=== PATIENT | male | born 1960 | race Caucasian/White ===

== ENCOUNTER 2020-08-27 09:47 | Outpatient (REF) | payer OTHER, SELFPAY ==
[2020-08-27 10:43] LABS: MANUAL DIFF FLAG NO
[2020-08-27 10:47] LABS: Basophils Absolute Auto 0.1 X10*3/uL (0.0-0.2); Basophils Percent Auto 0.5 % (0-2); Eosinophils Absolute Auto 0.6 X10*3/uL (0.0-0.4); Eosinophils Percent Auto 5.4 % (0-4); Hematocrit 48.4 % (42-52); Hemoglobin 16.5 g/dl (14.0-18.0); Imm Gran Abs Auto 0.04 X10*3/uL (0.00-0.03); Imm Gran Pct Auto 0.4 % (0.0-0.4); Lymphocytes Absolute Auto 2.5 X10*3/uL (1.2-4.9); Lymphocytes Percent Auto 24.2 % (20-40); Mean Corpuscular HGB Conc 34.1 g/dl (31.0-36.0); Mean Corpuscular Hemoglobin 30.2 pg (27.0-33.0); Mean Corpuscular Volume 88.6 fL (80-98); Mean Platelet Volume 10.8 fL (9.4-12.4); Monocytes Absolute Auto 0.8 X10*3/uL (0.1-1.2); Monocytes Percent Auto 7.8 % (2-11); Neutrophils Absolute Auto 6.3 X10*3/uL (2.0-8.3); Neutrophils Percent Auto 61.7 % (45-73); Platelet Count 217 X10*3/uL (160-400); Red Blood Count 5.46 X10*6/uL (4.60-5.80); White Blood Count 10.1 X10*3/uL (4.8-10.8)
[2020-08-27 11:20] LABS: Alanine Aminotransferase 27 U/L (0-40); Albumin Level 4.3 g/dL (3.5-5.0); Alkaline Phosphatase 93 U/L (39-117); Anion Gap 10 (12-20); Aspartate Amino Transferase 25 U/L (5-37); Bilirubin Total 0.6 mg/dL (0.0-1.0); Blood Urea Nitrogen 20 mg/dL (9-16); Calcium 9.4 mg/dL (8.4-10.2); Carbon Dioxide 31 mmol/L (22-29); Chloride 101 mmol/L (96-108); Cholesterol 226 mg/dL; Estimated Glomerular Filt Rate > 60; Glucose Fasting 89 mg/dL (60-99); HDL Cholesterol 46 mg/dL; LDL Cholesterol Calculated 150 mg/dl; Potassium 3.8 mmol/l (3.3-5.1); Sodium 138 mmol/L (135-145); Total Protein 6.9 g/dL (6.5-8.0); Triglycerides 154 mg/dL
[2020-08-27 11:42] LABS: Thyroid Stimulating Hormone 3.23 mIU/mL (0.32-4.0)
== END 2020-08-27 09:48 | disposition home or self-care (01) ==
LOC: HO.LAB 09:47
PROVIDERS: PCP Physician Assistant; Visit Provider Physician Assistant
DX: I10 Essential (primary) hypertension (principal); E78.9 Disorder of lipoprotein metabolism, unspecified
CPT/HCPCS: 36415; 80053; 80061; 84443; 85025

== ENCOUNTER 2021-01-30 09:16 | Emergency (ER) | payer OTHER, SELFPAY ==
--- NOTE | ~2021-01-30 | XR_ITS ---
EXAMINATION: XR CHEST CLINICAL INFORMATION: Fever. Rule out pneumonia. COMPARISON: 02/08/18. CT scan of 04/01/20. TECHNIQUE: Frontal view of the chest was obtained. FINDINGS: The lungs are hypoexpanded with no focal consolidation or other abnormality demonstrated. The pleural spaces are clear. The heart and mediastinal structures are normal. No bony abnormality is seen. XR/XR chest 1V IMPRESSION: Low lung volumes. No abnormality demonstrated.
[2021-01-30 09:26] VITALS: BP 166/82; PULSE 70; RESP 18; TEMP 36.9; O2SAT 96; BMI 30.9
--- NOTE | 2021-01-30 09:44 | ED.FEVER ---
HPI - Fever General Chief Complaint: Fever Stated Complaint: FLU [place] Time Seen by Provider: 01/30/21 09:43 Source: patient Mode of arrival: ambulatory Limitations: no limitations History of Present Illness HPI Narrative: 60-year-old male who received his 1st moderna COVID vaccination 4 days ago, patient after having his vaccination been having intermittent chills, fever, body aches, headaches. Patient's symptoms respond to taking Tylenol, patient received COVID vaccination in his right arm no local reaction to the vaccination, no recent confirm sick contact. No coughing, no chest pain, no abdominal pain, no nausea, no vomiting, no photophobia no neck stiffness. Related Data Home Medications Medication Instructions Recorded Confirmed hydrochlorothiazide 12.5 mg capsule 12.5 mg PO QAM 09/03/20 01/27/21 metoprolol succinate 100 mg 100 mg PO DAILY 09/03/20 01/27/21 tablet,extended release 24 hr Previous Rx's Medication Instructions Recorded triamcinolone acetonide 0.5 % 1 applic TOPICAL BID 30 Days #15 g 09/03/20 topical cream ropinirole 0.5 mg tablet 0.5 mg PO BEDTIME 30 Days #30 tab 01/27/21 zolpidem 10 mg tablet 10 mg PO BEDTIME PRN 30 Days #30 01/27/21 tab Allergies Allergy/AdvReac Type Severity Reaction Status Date / Time No Known Allergies Allergy Verified 01/27/21 14:41 [No Known Allergies*] Review of Systems Review of Systems: All other systems are reviewed and are negative Constitutional: Reports as per HPI and Reports no additional constitutional complaints Eyes: Reports as per HPI and Reports no additional eye complaints Reports system reviewed and no additional complaints, except as documented Cardiovascular: Reports as per HPI and Reports no additional cardiovascular complaints Respiratory: Reports as per HPI and Reports no additional respiratory complaints Gastrointestinal: Reports as per HPI and Reports no additional gastrointestinal complaints Genitourinary: Reports no additional female genitourinary complaints Musculoskeletal: Reports no additional musculoskeletal complaints Skin/Breast: Reports system reviewed and no additional complaints, except as docu Psychiatric: Reports no additional psychiatric complaints Endocrine: Reports no additional endocrine complaints Hematologic/Lymphatic: Reports no additional hematologic/lymphatic complaints Allergic/Immunologic: Reports no additional allergic/immunologic complaints Reports system reviewed and no additional complaints, except as documented and Reports Abnormal speech present [facility] Past Medical History Surgical History History of lumbar surgery Family History Family History Father Diabetes Mother Gastric cancer Brother Prostate cancer Family/Other FH: mental illness Social History Social History Smoking Status: Never smoker Advance Directives: No Advance Directives Information Provided: No Physical Exam Vital Signs: Vital Signs: Last Vital Signs Temp 98.4 F 01/30/21 09:26 Pulse 70 01/30/21 09:26 Resp 18 01/30/21 09:26 BP 166/82 H 01/30/21 09:26 Pulse Ox 96 01/30/21 09:26 Body Mass Index 30.9 Vital signs have been reviewed as appeared to be correct. Blood pressure is elevated . Heart rate normal. Respiration rate normal. Temperature normal. Oxygen saturation normal. Appearance: Alert. Oriented X3. No acute distress. Head: Normal external exam. Normocephalic. Atraumatic. No Rosado signs noted. No raccoon eyes noted Eyes: PERRLA. EOMI. Conjunctiva and sclera normal. Eyelids normal. ENT: TM's Normal. Pharynx normal. Uvula midline. Moist mucous membranes. No trismus noted. No drooling noted. No muffled voice noted. Neck: Normal inspection. Neck supple. FROM. No adenopathy. Thyroid Normal. No meningeal signs. No neck mass noted. CVS: Normal heart rate and rhythm. Heart sound normal. No murmurs noted. Pulses normal throughout. Respiratory: No respiratory distress. Painless inspiration. Breath sounds normal. No wheezes/rales/rhonchi noted. Chest nontender. No accessory muscle usage noted or decreased air movement noted. Abdomen: Soft and nontender. Bowel sounds normal in all 4 quadrants. No distention noted. No organomegaly noted. No visible injury noted. Back: No CVA tenderness. Full range of motion noted. Skin: Skin warm and dry. Normal skin color. Normal skin turgor. No rashes/lesions/lacerations noted. Extremities: No lower extremity edema. Extremities exhibit normal range of motion. Extremities nontender. Neuro: Oriented X 3. No motor deficit. No sensory deficit. Reflexes normal. Course Course Course Narrative: Assessment and plan. 60-year-old male started to have body ache after having 1st dose of moderna COVID vaccine, on and off fever with chills that is responding well to Tylenol, patient has no concern of having superimposed infection, blood workup is unremarkable, COVID testing is pending. MDM - Fever Lab Data Attestation: I reviewed the patient's lab results. Result diagrams: 01/30/21 10:05 01/30/21 10:05 Labs: Lab Results 01/30/21 01/30/21 01/30/21 Range/Units 10:00 10:01 10:05 WBC 5.3 (4.8-10.8) X10*3/uL RBC 5.87 H (4.60-5.80) X10*6/uL Hgb 17.5 (14.0-18.0) g/dl Hct 52.3 H (42-52) % MCV 89.1 (80-98) fL MCH 29.8 (27.0-33.0) pg MCHC 33.5 (31.0-36.0) g/dl RDW 12.3 (11.0-16.0) % Plt Count 141 L D (160-400) X10*3/uL MPV 10.0 (9.4-12.4) fL Immature Gran % (Auto) 0.2 (0.0-0.4) % Neut % (Auto) 63.0 (45-73) % Lymph % (Auto) 21.8 (20-40) % [place] % (Auto) 12.4 H (2-11) % Eos % (Auto) 1.5 (0-4) % Baso % (Auto) 1.1 (0-2) % Lymph # (Auto) 1.2 (1.2-4.9) X10*3/uL [place] # (Auto) 0.7 (0.1-1.2) X10*3/uL Eos # (Auto) 0.1 (0.0-0.4) X10*3/uL Baso # (Auto) 0.1 (0.0-0.2) X10*3/uL Abs Immat Gran (auto) 0.01 (0.00-0.03) X10*3/uL Absolute Neuts (auto) 3.4 (2.0-8.3) X10*3/uL Absolute Nucleated RBC 0.000 (0.0-0.012) X10*3/uL Nucleated RBC % (auto) 0.0 (0.0-0.2) /100WBC Sodium (135-145) mmol/L Potassium (3.3-5.1) mmol/L Chloride (96-108) mmol/L Carbon Dioxide (22-29) mmol/L Anion Gap (12-20) BUN (9-16) mg/dL Creatinine (0.5-1.4) mg/dL Estim Creat Clear Calc Estimated GFR Random Glucose (60-115) mg/dL Calcium (8.4-10.2) mg/dL Urine Color YELLOW Urine Appearance CLEAR Urine pH 6.0 (5.0-8.0) Ur Specific [place] 1.025 (1.005-1.025) Urine Protein NEG (NEG-TRACE) MG/DL Urine Glucose (UA) NEG (NEG) MG/DL Urine Ketones NEG (NEG) MG/DL Urine Blood NEG (NEG) Urine Nitrite NEG (NEG) Ur Leukocyte Esterase NEG (NEG) COVID-19 (BOBBY) Cancelled COVID-19 Clin Com Cancelled 01/30/21 01/30/21 Range/Units 10:05 12:22 WBC (4.8-10.8) X10*3/uL RBC (4.60-5.80) X10*6/uL Hgb (14.0-18.0) g/dl Hct (42-52) % MCV (80-98) fL MCH (27.0-33.0) pg MCHC (31.0-36.0) g/dl RDW (11.0-16.0) % Plt Count (160-400) X10*3/uL MPV (9.4-12.4) fL Immature Gran % (Auto) (0.0-0.4) % Neut % (Auto) (45-73) % Lymph % (Auto) (20-40) % [place] % (Auto) (2-11) % Eos % (Auto) (0-4) % Baso % (Auto) (0-2) % Lymph # (Auto) (1.2-4.9) X10*3/uL [place] # (Auto) (0.1-1.2) X10*3/uL Eos # (Auto) (0.0-0.4) X10*3/uL Baso # (Auto) (0.0-0.2) X10*3/uL Abs Immat Gran (auto) (0.00-0.03) X10*3/uL Absolute Neuts (auto) (2.0-8.3) X10*3/uL Absolute Nucleated RBC (0.0-0.012) X10*3/uL Nucleated RBC % (auto) (0.0-0.2) /100WBC Sodium 140 (135-145) mmol/L Potassium 3.9 (3.3-5.1) mmol/L Chloride 101 (96-108) mmol/L Carbon Dioxide 28 (22-29) mmol/L Anion Gap 15 (12-20) BUN 16 (9-16) mg/dL Creatinine 1.19 (0.5-1.4) mg/dL Estim Creat Clear Calc 76.9 Estimated GFR > 60 Random Glucose 102 (60-115) mg/dL Calcium 9.2 (8.4-10.2) mg/dL Urine Color Urine Appearance Urine pH (5.0-8.0) Ur Specific [place] (1.005-1.025) Urine Protein (NEG-TRACE) MG/DL Urine Glucose (UA) (NEG) MG/DL Urine Ketones (NEG) MG/DL Urine Blood (NEG) Urine Nitrite (NEG) Ur Leukocyte Esterase (NEG) COVID-19 (BOBBY) Negative COVID-19 Clin Com See Note Imaging Data Chest x-ray: Radiologist's impression: Low lung volume is. No abnormalities demonstrated Discharge Plan Discharge Clinical Impression: Side effects of vaccination Qualifiers: Encounter type: initial encounter Qualified Code(s): T50.Z95A - Adverse effect of other vaccines and biological substances, initial encounter Patient Disposition: Home, Self-Care Instructions: The Importance of Immunizations (Vaccines) for Adults (ED) Additional Instructions: Your symptoms could be a side effect from 1st dose of vaccination against COVID 19 virus, our blood workup today and chest x-ray is not indicating any superimposing infection, continue was drinking plenty of fluid take Tylenol if needed for symptoms, seek immediate medical attention if any tongue swelling or difficulty breathing. Prescriptions: No Action hydrochlorothiazide 12.5 mg capsule 12.5 mg PO QAM RF: 0 metoprolol succinate 100 mg tablet extended release 24 hr 100 mg PO DAILY RF: 0 triamcinolone acetonide 0.5 % cream 1 applic topical BID 30 Days Qty: 15 RF: 1 zolpidem 10 mg tablet 10 mg PO BEDTIME PRN (Reason: sleep) 30 Days Qty: 30 RF: 2 ropinirole 0.5 mg tablet 0.5 mg PO BEDTIME 30 Days Qty: 30 RF: 3 Referrals: Lucas Andino PA-C [Primary Care Provider] - 2 days Interventions: ED Discharge Assessment Last Done: 01/30/21 12:13 Discharge Date/Time: 01/30/21 12:25
[2021-01-30 10:15] LABS: MANUAL DIFF FLAG NO
[2021-01-30 10:38] LABS: Basophils Absolute Auto 0.1 X10*3/uL (0.0-0.2); Basophils Percent Auto 1.1 % (0-2); Eosinophils Absolute Auto 0.1 X10*3/uL (0.0-0.4); Eosinophils Percent Auto 1.5 % (0-4); Hematocrit 52.3 % (42-52); Hemoglobin 17.5 g/dl (14.0-18.0); Imm Gran Abs Auto 0.01 X10*3/uL (0.00-0.03); Imm Gran Pct Auto 0.2 % (0.0-0.4); Lymphocytes Absolute Auto 1.2 X10*3/uL (1.2-4.9); Lymphocytes Percent Auto 21.8 % (20-40); Mean Corpuscular HGB Conc 33.5 g/dl (31.0-36.0); Mean Corpuscular Hemoglobin 29.8 pg (27.0-33.0); Mean Corpuscular Volume 89.1 fL (80-98); Monocytes Absolute Auto 0.7 X10*3/uL (0.1-1.2); Monocytes Percent Auto 12.4 % (2-11); Neutrophils Absolute Auto 3.4 X10*3/uL (2.0-8.3); Platelet Count 141 X10*3/uL (160-400); Red Blood Count 5.87 X10*6/uL (4.60-5.80); Red Cell Distribution Width 12.3 % (11.0-16.0); White Blood Count 5.3 X10*3/uL (4.8-10.8)
[2021-01-30 10:39] LABS: Glucose Urine UA NEG (NEG); Leukocyte Esterase Urine NEG (NEG); Nitrite Urine NEG (NEG); Specific Gravity - Urine 1.025 (1.005-1.025); Urine Blood NEG (NEG); Urine Ketones NEG (NEG); Urine Protein NEG (NEG-TRACE)
[2021-01-30 10:40] LABS: Appearance Urine CLEAR; Color Urine YELLOW
[2021-01-30 10:49] LABS: Anion Gap 15 (12-20); Blood Urea Nitrogen 16 mg/dL (9-16); Calcium 9.2 mg/dL (8.4-10.2); Carbon Dioxide 28 mmol/L (22-29); Chloride 101 mmol/L (96-108); Creatinine Clr Calc Pharmacy 76.9; Estimated Glomerular Filt Rate > 60; Glucose Random 102 mg/dL (60-115); Potassium 3.9 mmol/L (3.3-5.1); Sodium 140 mmol/L (135-145)
[2021-01-30 12:44] LABS: COVID-19 Test Negative (Negative)
== END 2021-01-30 12:25 | disposition home or self-care (01) ==
PROVIDERS: Emergency Provider Emergency Medicine; PCP Physician Assistant
DX: R51.9 Headache, unspecified (principal); R50.9 Fever, unspecified; M79.10 Myalgia, unspecified site; T50.Z95A Adverse effect of other vaccines and biological substances, initial encounter; Y92.019 Unspecified place in single-family (private) house as the place of occurrence of the external cause; Z20.822 Contact with and (suspected) exposure to COVID-19
CPT/HCPCS: 36415; 71045; 80048; 81003; 85025; 87040; 87635; 99283

== ENCOUNTER → 2021-06-14 08:58 | Outpatient (BNVA) | payer OTHER, SELFPAY | PROVIDERS: PCP Physician Assistant; Visit Provider Internal Medicine ==

== ENCOUNTER → 2021-07-01 10:56 | Outpatient (BNVA) | payer OTHER, SELFPAY | PROVIDERS: PCP Physician Assistant; Visit Provider Physician Assistant | DX: M65.331 Trigger finger, right middle finger (principal); M65.322 Trigger finger, left index finger | CPT/HCPCS: 20550; J1020 ==

== ENCOUNTER → 2021-07-21 09:41 | Outpatient (BNVA) | payer OTHER, SELFPAY | PROVIDERS: PCP Physician Assistant; Visit Provider Internal Medicine ==

== ENCOUNTER → 2021-08-11 09:56 | Outpatient (REF) | payer OTHER, SELFPAY | LOC: HO.SL 09:56 | PROVIDERS: PCP Physician Assistant; Visit Provider Internal Medicine | DX: G47.33 Obstructive sleep apnea (adult) (pediatric) (principal); F51.01 Primary insomnia; G25.81 Restless legs syndrome; E66.9 Obesity, unspecified | CPT/HCPCS: 95806 ==

== ENCOUNTER → 2021-08-25 15:40 | Outpatient (BNVA) | payer OTHER, SELFPAY | PROVIDERS: PCP Physician Assistant; Visit Provider Internal Medicine ==

== ENCOUNTER → 2022-01-31 10:54 | Outpatient (BNVA) | payer OTHER, SELFPAY | PROVIDERS: PCP Physician Assistant; Visit Provider Internal Medicine | DX: G47.33 Obstructive sleep apnea (adult) (pediatric) (principal); G47.34 Idiopathic sleep related nonobstructive alveolar hypoventilation; G25.81 Restless legs syndrome; E66.9 Obesity, unspecified; Z99.89 Dependence on other enabling machines and devices; Z87.891 Personal history of nicotine dependence | CPT/HCPCS: 99212 ==

== ENCOUNTER 2022-09-15 01:32 | Emergency (ER) | payer OTHER, SELFPAY ==
[2022-09-15 01:44] VITALS: BP 146/79; PULSE 65; RESP 18; TEMP 36.7; O2SAT 96; BMI 30.8
[2022-09-15 02:04] LABS: MANUAL DIFF FLAG NO
[2022-09-15 02:05] LABS: Basophils Absolute Auto 0.1 X10*3/uL (0.0-0.2); Basophils Percent Auto 0.5 % (0-2); Eosinophils Absolute Auto 0.4 X10*3/uL (0.0-0.4); Eosinophils Percent Auto 3.5 % (0-4); Hematocrit 48.4 % (42.0-52.0); Hemoglobin 16.2 g/dl (14.0-18.0); Imm Gran Abs Auto 0.04 X10*3/uL (0.00-0.03); Imm Gran Pct Auto 0.3 % (0.0-0.4); Lymphocytes Absolute Auto 2.1 X10*3/uL (1.2-4.9); Lymphocytes Percent Auto 16.5 % (20-40); Mean Corpuscular HGB Conc 33.5 g/dl (31.0-36.0); Mean Corpuscular Hemoglobin 29.1 pg (27.0-33.0); Mean Corpuscular Volume 87.1 fL (80.0-98.0); Mean Platelet Volume 9.9 fL (9.4-12.4); Monocytes Absolute Auto 0.8 X10*3/uL (0.1-1.2); Monocytes Percent Auto 6.3 % (2-11); Neutrophils Absolute Auto 9.2 x10*3/uL (2.0-8.3); Neutrophils Percent Auto 72.9 % (45-73); Platelet Count 199 X10*3/uL (160-400); Red Blood Count 5.56 X10*6/uL (4.60-5.80); Red Cell Distribution Width 12.9 % (11.0-16.0); White Blood Count 12.6 X10*3/uL (4.8-10.8)
[2022-09-15 02:23] LABS: Lactic Acid 0.7 mmol/L (0.5-2.0)
[2022-09-15 02:32] LABS: Alanine Aminotransferase 19 U/L (0-40); Alkaline Phosphatase 99 U/L (39-117); Anion Gap 16 (12-20); Aspartate Amino Transferase 19 U/L (5-37); Bilirubin Total 0.5 mg/dL (0.0-1.0); Blood Urea Nitrogen 16 mg/dL (9-16); Calcium 8.9 mg/dL (8.4-10.2); Carbon Dioxide 22 mmol/L (22-29); Chloride 104 mmol/L (96-108); Creatinine Clr Calc Pharmacy 85.9; Estimated Glomerular Filt Rate > 60; Glucose Random 104 mg/dL (60-115); Potassium 4.1 mmol/L (3.3-5.1); Sodium 138 mmol/L (135-145); Total Protein 6.9 g/dL (6.5-8.0)
[2022-09-15 02:35] VITALS: BP 142/82; PULSE 66; RESP 17; TEMP 36.8; O2SAT 95
--- NOTE | 2022-09-15 02:37 | PC.NURSE ---
Patient arrives with concern for atraumatic pain and swelling to his left elbow, small abrasion noted. +CSM to left arm and joints. he currently denies pain. +swelling to left elbow noted.
[2022-09-15 04:23] VITALS: BP 121/75; PULSE 62; RESP 16; TEMP 37.1; O2SAT 94
--- NOTE | 2022-09-15 04:47 | ED.EXTPRO ---
HPI - Extremity Problem General Chief complaint: General Medical Stated complaint: infected elbow from cut Time Seen by Provider: 09/15/22 04:45 Source: patient Mode of arrival: ambulatory Limitations: no limitations History of Present Illness HPI Narrative: 62 yo male with hx of GUS and HTN presents with L elbow redness - has a callous there and picked it, noted it was sore for the last week but over the past two days it became more red and swollen. This has never happened before. No treatments until today. MD Complaint: extremity pain and extremity swelling Onset (ago): week(s) (1) Pain Consistency: constant Location: left and elbow Quality: aching Radiation: none Relieving factors: immobilization Exacerbating factors: palpation Associated symptoms: denies other symptoms Context: other (picked a callous) Related Data Previous Rx's Medication Instructions Recorded ropinirole 0.5 mg tablet 0.5 mg PO BEDTIME #90 tabs 11/08/21 loratadine 10 mg tablet 10 mg PO DAILY #90 tabs 03/15/22 hydrochlorothiazide 12.5 mg capsule 12.5 mg PO QAM #90 caps 05/09/22 metoprolol succinate 100 mg 100 mg PO DAILY #90 tabs 05/09/22 tablet,extended release 24 hr zolpidem 10 mg tablet 10 mg PO BEDTIME PRN sleep 30 days 05/31/22 #30 tabs trazodone 50 mg tablet 50 mg PO BEDTIME PRN for insomnia 08/15/22 #90 tabs cephalexin 500 mg capsule 500 mg PO QID 7 days #28 caps 09/15/22 doxycycline hyclate 100 mg capsule 100 mg PO BID 7 days #14 caps 09/15/22 Allergies Allergy/AdvReac Type Severity Reaction Status Date / Time No Known Allergies Allergy Verified 07/14/22 09:23 [No Known Allergies*] Review of Systems Review of Systems: Constitutional : No Fever, No Chills ENT/Mouth : No sore throat, No Rhinorrhea Eyes: No Eye Pain, No Swelling, No Redness Cardiovascular : No Chest Pain, No SOB Respiratory : No Cough, No Sputum Gastrointestinal : No Nausea, No Vomiting, No Diarrhea, No abdominal Pain Genitourinary : No Dysuria, No Hematuria Musculoskeletal : No joint pain, No Myalgias, No Joint Swelling Skin : No Skin Lesions, positive skin rash Neuro : No Weakness, No Numbness, No Headache Psych : No Anxiety, No Depression Heme/Lymph: No Bruising, No Bleeding,No Lymphadenopathy Endocrine : No Polyuria, No Polydipsia All other systems reviewed and are negative [facility] Past Medical History Attestation statement: The following information was validated with the patient. Medical History Nocturnal hypoxemia Obesity (BMI 30.0-34.9) Surgical History History of lumbar surgery Family History Family History Father Diabetes Mother Gastric cancer Brother Prostate cancer Family/Other FH: mental illness Social History Social History Housing: House Patient Tobacco Use Status: Former Tobacco user Tobacco use type: Cigarette e-Cigarette/Vaping Use: Never Used Advance Directives: No Current occupational status: employed Physical Exam Vital Signs: Vital Signs: Last Vital Signs Temp 98.7 F 09/15/22 04:23 Pulse 62 09/15/22 04:23 Resp 16 09/15/22 04:23 BP 121/75 09/15/22 04:23 Pulse Ox 94 09/15/22 04:23 O2 Del Method 09/15/22 04:23 BMI result Body Mass Index 30.8 Appearance: Alert. Oriented X3. No acute distress. Eyes: Pupils equal, round and reactive to light. ENT: Pharynx normal. Neck: Normal inspection. Neck supple. CVS: Normal heart rate and rhythm. Pulses normal. Respiratory: No respiratory distress. Breath sounds normal. Abdomen: Soft and nontender. Skin: Skin warm and dry. Normal skin color. Normal skin turgor. Extremities: No lower extremity edema. L elbow bursa not inflammed, it is overlying the olecranon and there is a thickened callous but no fluctuance, erythema and warmth mild extends around the posterior aspect of the elbow itself - it is not circumferential and he has full ROM of the elbow and no joint effusion Neuro: Oriented X 3. No motor deficit. No sensory deficit. MDM - Extremity (Nontraumatic) MDM Narrative Medical decision making narrative: 62 yo male with L elbow cellulitis no signs of septic joint, abscess or infected bursa - he has no systemic symptoms at this time he is not diabetic he is reliable will give dose of IV antiboitics and start on cephalexin and doxy send home with strict precautions. Lab Data Result diagrams: 09/15/22 01:58 09/15/22 01:58 Labs: Lab Results 09/15/22 09/15/22 09/15/22 Range/Units 01:58 01:58 01:58 WBC 12.6 H (4.8-10.8) X10*3/uL RBC 5.56 (4.60-5.80) X10*6/uL Hgb 16.2 (14.0-18.0) g/dl Hct 48.4 (42.0-52.0) % MCV 87.1 (80.0-98.0) fL MCH 29.1 (27.0-33.0) pg MCHC 33.5 (31.0-36.0) g/dl RDW 12.9 (11.0-16.0) % Plt Count 199 (160-400) X10*3/uL MPV 9.9 (9.4-12.4) fL Immature Gran % (Auto) 0.3 (0.0-0.4) % Neut % (Auto) 72.9 (45-73) % Lymph % (Auto) 16.5 L (20-40) % [place] % (Auto) 6.3 (2-11) % Eos % (Auto) 3.5 (0-4) % Baso % (Auto) 0.5 (0-2) % Lymph # (Auto) 2.1 (1.2-4.9) X10*3/uL [place] # (Auto) 0.8 (0.1-1.2) X10*3/uL Eos # (Auto) 0.4 (0.0-0.4) X10*3/uL Baso # (Auto) 0.1 (0.0-0.2) X10*3/uL Abs Immat Gran (auto) 0.04 H (0.00-0.03) X10*3/uL Absolute Neuts (auto) 9.2 H (2.0-8.3) x10*3/uL Absolute Nucleated RBC 0.000 (0.0-0.012) X10*3/uL Nucleated RBC % (auto) 0.0 (0.0-0.2) /100WBC Sodium 138 (135-145) mmol/L Potassium 4.1 (3.3-5.1) mmol/L Chloride 104 (96-108) mmol/L Carbon Dioxide 22 (22-29) mmol/L Anion Gap 16 (12-20) BUN 16 (9-16) mg/dL Creatinine 1.07 (0.5-1.4) mg/dL Estim Creat Clear Calc 85.9 Estimated GFR > 60 Random Glucose 104 (60-115) mg/dL Lactic Acid 0.7 (0.5-2.0) mmol/L Calcium 8.9 (8.4-10.2) mg/dL Total Bilirubin 0.5 (0.0-1.0) mg/dL AST 19 (5-37) U/L ALT 19 (0-40) U/L Alkaline Phosphatase 99 (39-117) U/L Total Protein 6.9 (6.5-8.0) g/dL Albumin 4.0 (3.5-5.0) g/dL Discharge Plan Discharge Clinical Impression: Cellulitis of left elbow Patient Disposition: Home, Self-Care Instructions: Cellulitis (ED) Additional Instructions: return to ED for any worsening symptoms or concerns take all antibiotics take a probiotic while on antibiotic if you develop fevers, redness spreads, swelling worsens or you feel you are not getting better please return Prescriptions: New doxycycline hyclate 100 mg capsule 100 mg PO BID 7 Days Qty: 14 0RF cephalexin 500 mg capsule 500 mg PO QID 7 Days Qty: 28 0RF No Action ropinirole 0.5 mg tablet 0.5 mg PO BEDTIME Qty: 90 1RF loratadine 10 mg tablet 10 mg PO DAILY Qty: 90 1RF hydrochlorothiazide 12.5 mg capsule 12.5 mg PO QAM Qty: 90 1RF metoprolol succinate 100 mg tablet extended release 24 hr 100 mg PO DAILY Qty: 90 1RF zolpidem 10 mg tablet 10 mg PO BEDTIME PRN (Reason: sleep) 30 Days Qty: 30 2RF trazodone 50 mg tablet 50 mg PO BEDTIME PRN (Reason: for insomnia) Qty: 90 0RF Stand Alone Forms: Work/School Release
[2022-09-15 05:31] VITALS: BP 123/74; PULSE 52; RESP 17; TEMP 36.6; O2SAT 94
[2022-09-15] MEDS: Piperacillin Sodium/Tazobactam 3.375 GM in 0.9 % Sodium Chloride 50 ML IV (05:46)
[2022-09-15 07:29] VITALS: BP 114/68; PULSE 58; RESP 14; TEMP 36.7; O2SAT 95
== END 2022-09-15 08:44 | disposition home or self-care (01) ==
PROVIDERS: Emergency Provider Emergency Medicine; PCP Physician Assistant
DX: L03.114 Cellulitis of left upper limb (principal); M25.522 Pain in left elbow; I10 Essential (primary) hypertension; E78.9 Disorder of lipoprotein metabolism, unspecified
CPT/HCPCS: 36415; 80053; 83605; 85025; 96365; 96375; 99284; J2543; J3370

== ENCOUNTER 2022-11-21 09:22 | Outpatient (REF) | payer OTHER, SELFPAY ==
[2022-11-21 10:38] LABS: Hematocrit 47.4 % (42.0-52.0); Mean Corpuscular HGB Conc 33.8 g/dl (31.0-36.0); Mean Corpuscular Hemoglobin 29.6 pg (27.0-33.0); Mean Corpuscular Volume 87.8 fL (80.0-98.0); Mean Platelet Volume 10.3 fL (9.4-12.4); Platelet Count 211 X10*3/uL (160-400); Red Cell Distribution Width 13.3 % (11.0-16.0); White Blood Count 9.9 X10*3/uL (4.8-10.8)
[2022-11-21 11:24] LABS: Estimated Average Glucose 120 mg/dL; Hemoglobin A1c % 5.8 %
[2022-11-21 11:39] LABS: Creatinine Urine 101.29 mg/dL; Microalbum/Creatinine Ratio Ur 27.6 ug/mg cr
[2022-11-21 11:42] LABS: Alanine Aminotransferase 18 U/L (0-40); Albumin Level 4.2 g/dL (3.5-5.0); Alkaline Phosphatase 93 U/L (39-117); Anion Gap 12 (12-20); Aspartate Amino Transferase 23 U/L (5-37); Bilirubin Total 0.5 mg/dL (0.0-1.0); Blood Urea Nitrogen 18 mg/dL (9-16); Calcium 9.6 mg/dL (8.4-10.2); Carbon Dioxide 28 mmol/L (22-29); Chloride 105 mmol/L (96-108); Cholesterol 217 mg/dL; Estimated Glomerular Filt Rate > 60; Glucose Fasting 90 mg/dL (60-99); HDL Cholesterol 40 mg/dL; LDL Cholesterol Calculated 147 mg/dl; Potassium 3.9 mmol/L (3.3-5.1); Sodium 141 mmol/L (135-145); Triglycerides 151 mg/dL
[2022-11-21 12:13] LABS: Prostate Specific Antigen Scr 1.67 ng/mL (<0.05-4.0); TSH reflex Free T4 3.87 uIU/mL (0.32-4.0)
== END 2022-11-21 09:23 | disposition home or self-care (01) ==
LOC: HO.LAB 09:22
PROVIDERS: PCP Physician Assistant; Referring Provider Physician Assistant; Visit Provider Internal Medicine
DX: G47.33 Obstructive sleep apnea (adult) (pediatric) (principal); G25.81 Restless legs syndrome; G47.00 Insomnia, unspecified; I10 Essential (primary) hypertension; E78.9 Disorder of lipoprotein metabolism, unspecified; Z99.89 Dependence on other enabling machines and devices; Z79.899 Other long term (current) drug therapy; Z12.5 Encounter for screening for malignant neoplasm of prostate
CPT/HCPCS: 36415; 80053; 80061; 82043; 83036; 84153; 84443; 85027

== ENCOUNTER 2023-06-19 15:46 | Outpatient (AMB) | payer OTHER, SELFPAY ==
--- NOTE | 2023-06-19 15:47 | A.OFFPC_ITS ---
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 Accompanied by: Self / Same As Patient Allergies No Known Allergies [No Known Allergies*] Allergy (Verified 06/19/23 15:54) Medication List - Last Reconciled 06/19/23 by Lucas Andino PA-C fluticasone propionate 50 mcg/actuation (Children's Flonase Allergy Relief) 2 sprays intranasal DAILY 30 days hydrochlorothiazide 12.5 mg PO QAM loratadine 10 mg PO DAILY PRN metoprolol succinate ER 100 mg PO DAILY trazodone 100 mg PO BEDTIME PRN 30 days MDD Insomnia Tobacco use date assessed: 12/13/22 Dental Screening Dental Screen Date: 06/19/23 Did you have a dental visit in the last 12 months?: Yes Did you have a dental problem in the last 6 months where you did not have access to dental care?: No Was dental information given to patient?: Patient has dentist HPI physical HPI Details Patient is a 63-year-old male here today for an annual physical. Patient's past medical history significant for obstructive sleep apnea, insomnia, borderline high cholesterol and hypertension. .. Hypertension: Blood pressure acceptable today in office. Denies any headaches, vision issues or chest discomfort. Concerns--> report having allergy symptoms for 3 months , denies any fevers or productivity of the cough. He feels his symptoms are very similar to his allergies though has been extending for the last 3 months. He is concerned and would like to be seen by an lens generator and is considering allergy testing/ injections. PLAN: Advised to transition to a different antihistamine .. Obstructive sleep apnea: He reports he has been compliant with nightly use of CPAP machine though due to his allergies he has been finding it very difficult to keep the CPAP mask on all night. Reports he gets a lot of benefit from using CPAP machine with increased energy during the day. Colon cancer screening: Need colonoscopy-done at age 53 normal Vaccines: Up-to-date with COVID vaccine, flu vaccine and tdap Reviewed labs with patient and noted slightly elevated A1c of 5.8 and borderline high cholesterol. Laboratory Tests 12/24/19 08/27/20 11/21/22 16:06 10:08 10:11 RBC 5.40 Creatinine Hemoglobin A1c % Cholesterol 225 226 LDL Cholesterol, C alc 155 150 PSA Screen 11/21/22 11/21/22 10:11 10:11 RBC Creatinine 1.11 Hemoglobin A1c % 5.8 Cholesterol 217 LDL Cholesterol, C alc 147 PSA Screen 1.67 [facility] Medical History (Updated 06/20/23 @ 07:07 by Lucas Andino PA-C) Eczema Insomnia Nocturnal hypoxemia RLS (restless legs syndrome) Trigger finger, left index finger Surgical History History of lumbar surgery Family History Father Diabetes Mother Gastric cancer Brother Prostate cancer Family/Other FH: mental illness Social History Housing: House Patient Tobacco Use Status: Former Tobacco user Tobacco use type: Cigarette e-Cigarette/Vaping Use: Never Used Current occupational status: employed Cognitive needs: No Hearing needs: No Vision needs: No Questionnaire Thrive Questionnaire Date Thrive assessed: 12/13/22 RISHI-7 AMB Questionnaire RISHI-7 Date RISHI - 7 assessed: 12/13/22 Source: Developed by Drs. Jeff Casillas, Tamela Jansen, Wayne Kate and colleagues, with an educational zain from [employer]. Review of Systems Const Denies body aches, Denies chills, Denies excessive sweating, Denies fatigue, Denies fever(s) and Denies headache(s) Eyes Denies blurry vision ENT Denies dysphagia, Denies vertigo, Denies dizziness, Denies headache(s), Denies hearing loss and Denies tinnitus Card Denies chest pain, Denies chest pain with activity, Denies syncope, Denies irregular heart rhythm and Denies dyspnea Resp Denies chest congestion, Denies cough, Denies hemoptysis, Denies dyspnea and Denies wheezing GI Denies abdominal pain, Denies melena, Denies hematochezia, Denies coffee ground emesis, Denies dysphagia, Denies diarrhea, Denies nausea and Denies vomiting Denies difficulty urinating, Denies dysuria, Denies urinary frequency, Denies urinary hesitancy and Denies urinary urgency Musc Denies arthralgias, Denies limited range of motion, Denies muscle cramps and Denies muscle weakness Skin/Breast Denies rash and Denies skin ulcer Neuro Denies Abnormal speech present, Denies confusion, Denies vertigo, Denies dizziness, Denies syncope, Denies headache(s), Denies memory loss and Denies seizure-like activity Psych Denies anxiety, Denies confusion, Denies depression, Denies memory loss, Denies panic attacks and Denies paranoia Endo Denies excessive sweating, Denies fatigue, Denies flushing, Denies polydipsia and Denies polyuria Aller/Immun Denies wheezing Physical exam (Primary Care) Vital Signs: Last Vital Signs Pulse 74 06/19/23 15:48 BP 130/72 06/19/23 15:48 Pulse Ox 97 06/19/23 15:48 BMI result Body Mass Index 30.7 BMI Assessment/Plan discussion: High Tobacco/Smoking Status: Tobacco use Status Tobacco use date assessed 12/13/22 06/19/23 15:48 Patient Tobacco Use Status Former Tobacco user 06/19/23 15:48 Tobacco use type Cigarette 06/19/23 15:48 e-Cigarette/Vaping Use Never Used 06/19/23 15:48 Thrive Assessment: Date of Thrive Assessment Date Thrive assessed 12/13/22 06/19/23 15:48 Const General: cooperative, comfortable, no acute distress, alert and awake; No confusion Orientation/consciousness: oriented to person, oriented to place, patient oriented x3 and No confusion HENMT Head: Yes normocephalic Ears: external ears normal and TM's normal bilaterally Face and sinus: No sinus tenderness Mouth: Normal oral and palatal mucosa present and tongue normal Teeth and gingiva: dentition normal and gingiva normal Throat: Yes posterior oropharynx normal, Yes tonsils normal and Yes uvula midline Eyes Conjunctivae: conjunctivae normal Sclerae: sclerae normal Pupils: Equal, round and reactive pupils present EOM: EOMs intact bilaterally Direct Ophthalmoscopy: No no photophobia Neck Neck: Yes no lymphadenopathy, No tender and Yes no JVD Thyroid: Thyroid normal Carotids: no bruits Chest Chest palpation & inspection: no tenderness Resp Effort & Inspection: normal respiratory effort, no audible wheezes, not labored and no stridor Auscultation: no crackles, no rales, no rhonchi and no wheezes Cardio Jugular venous distension: no JVD Rate: regular rate, not bradycardic and not tachycardic Rhythm: regular rhythm Bruits: no carotid bruits Peripheral pulses: Peripheral pulses 2+ throughout GI Inspection: Yes normal to inspection, No abdominal wall ecchymosis and No visible herniation Palpation (GI): Soft to palpation, nontender, no guarding, not rigid and No hepatosplenomegaly present Auscultation: normoactive bowel sounds General: Yes no CVA tenderness Back/Spine/Pelvis Back: no CVA tenderness and No back tenderness Cervical Spine: cervical ROM normal Thoracic/Lumbar Spine: thoracic and lumbar spine normal to inspection, straight leg raise negative bilaterally, No thoraco-lumbar ROM limited and No lumbar spinal tenderness Skin Lesions: no lesions Rashes: no rashes Wounds: no wounds Neuro General: oriented to person, oriented to place, patient oriented x3, CN's II-XI intact bilaterally and No confusion Cranial nerves: Yes Equal, round and reactive pupils present and Yes Normal accommodation reflex present Cognition (Neuro): normal cognition Speech: No Abnormal speech present Gait exam (Neuro): Normal gait present Motor exam (neuro): 5/5 motor strength present throughout Extrem Right upper extremity: full ROM; no cyanosis Left upper extremity: full ROM; no cyanosis Right lower extremity: no edema Left lower extremity: no edema Psych Appearance: grossly normal Mental Status: mental status grossly normal Affect: normal affect Attitude: cooperative Thought process: Normal thought process present Assessment and Plan Assessment & Plan (1) Annual physical exam: Code(s): Z00.00 - Encounter for general adult medical examination without abnormal findings (2) Rhinitis: Comment: This gentleman has chronic allergic rhinitis. Using Claritin 10 mg daily, advised to try cetirizine 10 mg in the evenings. Code(s): J31.0 - Chronic rhinitis Qualifiers: Allergic rhinitis seasonality: non-seasonal Allergic rhinitis trigger: pollen Rhinitis type: allergic Qualified Code(s): J30.1 - Allergic rhinitis due to pollen Plan: As above patient has been suffering with allergic rhinitis over the last several months. He has been using Claritin on a daily basis without much relief. He feels he has environmental allergies and would like to see an lens generator for allergy testing and possible an injection therapies. Advised to switch antihistamine and will supply with a 5 day dose of prednisone for sinus inflammation. (3) Pulmonary nodule: Code(s): R91.1 - Solitary pulmonary nodule Plan: Patient is followed by pulmonology. He will follow-up with pulmonology next month about his pulmonary nodules. Does continue to have a dry cough to which he attributes to his allergies. (4) GUS (obstructive sleep apnea): Comment: Patient is confirmed case of obstructive sleep apnea, with mild nocturnal hypoxemia and RSL. He is using CPAP more regularly, but wakes up with nasal congestion and blockage, in spite of using humidification. This keeps his average use it per night less than 4 hours. PLAN: Will order a fullface mask. Advised to start on Flonase 2 spray each nostril daily at bedtime. Code(s): G47.33 - Obstructive sleep apnea (adult) (pediatric) Plan: He reports he is compliant with his CPAP machine on a nightly basis. He finds it very difficult to use the mask throughout the night while he has allergy symptoms. (5) HTN (hypertension): Code(s): I10 - Essential (primary) hypertension Qualifiers: Hypertension type: essential hypertension Qualified Code(s): I10 - Essential (primary) hypertension Plan: Blood pressure acceptable today in office. Will continue his current dose of antihypertensive medication with goal blood pressure to remain below 140/90 (6) Borderline high cholesterol: Code(s): E78.9 - Disorder of lipoprotein metabolism, unspecified Plan: Patient's most recent fasting lipid panel showing borderline high total cholesterol. He will work on lifestyle modifications to reduce his high cholesterol. (7) Colon cancer screening: Code(s): Z12.11 - Encounter for screening for malignant neoplasm of colon Plan: Needs screening colonoscopy (8) Obese: Code(s): E66.9 - Obesity, unspecified Qualifiers: Body mass index: BMI 33.0-33.9 Obesity classification: adult class 1 (BMI 30 - 34.9) Obesity type: due to excess calories Serious obesity comorbidity presence: without serious comorbidity Qualified Code(s): E66.09 - Other obesity due to excess calories; Z68.33 - Body mass index [BMI] 33.0-33.9, adult Plan: Patient does understand his BMI is over 30 will work on being more physically active and adapting to better eating habits to reduce his weight Orders: Orders Comprehensive [place]. Panel Fast 06/19/23 I10 - Essential (primary) hypertension Lipid Panel 06/19/23 E78.9 - Disorder of lipoprotein metabolism, unspecified Complete Blood Count no Diff 06/19/23 I10 - Essential (primary) hypertension Prostate Specific Antigen Scr Today Z12.5 - Encounter for screening for malignant neoplasm of prostate Referrals Allergy & Immunology Referral J30.1 - Allergic rhinitis due to pollen Gastroenterology Referral Z12.11 - Encounter for screening for malignant neoplasm of colon Medications: New prednisone 20 mg PO DAILY 5 tabs 0RF 5 days J30.1 - Allergic rhinitis due to pollen Coding Level of Care Code Est Pt Prev Care 40-64y(16250) Diagnoses Annual physical exam Z00.00 Rhinitis J30.1 Allergic rhinitis seasonality: non-seasonal Allergic rhinitis trigger: pollen Rhinitis type: allergic Pulmonary nodule R91.1 GUS (obstructive sleep apnea) G47.33 HTN (hypertension) I10 Hypertension type: essential hypertension Borderline high cholesterol E78.9 Colon cancer screening Z12.11 Obese E66.09; Z68.33 Body mass index: BMI 33.0-33.9 Obesity classification: adult class 1 (BMI 30 - 34.9) Obesity type: due to excess calories Serious obesity comorbidity presence: without serious comorbidity
[2023-06-19 15:48] VITALS: BP 130/72; PULSE 74; O2SAT 97; BMI 30.7
== END 2023-06-19 16:19 | disposition home or self-care (01) ==
PROVIDERS: PCP Physician Assistant; Visit Provider Physician Assistant
DX: Z00.00 Encounter for general adult medical examination without abnormal findings (principal); I10 Essential (primary) hypertension; E66.09 Other obesity due to excess calories; Z68.33 Body mass index [BMI] 33.0-33.9, adult; J30.1 Allergic rhinitis due to pollen; R91.1 Solitary pulmonary nodule; G47.33 Obstructive sleep apnea (adult) (pediatric); E78.9 Disorder of lipoprotein metabolism, unspecified
CPT/HCPCS: 99396

== ENCOUNTER 2023-08-03 09:15 | Outpatient (AMB) | payer OTHER, SELFPAY ==
[2023-08-03 09:27] VITALS: BP 140/82; PULSE 69; O2SAT 96; BMI 31.3
--- NOTE | 2023-08-03 09:27 | A.OFFVIS_ITS ---
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 Apricot Washer Required: No Allergies No Known Allergies [No Known Allergies*] Allergy (Verified 08/03/23 09:52) Medication List - Last Reconciled 08/03/23 by Preston Warner MD fluticasone propionate 50 mcg/actuation (Children's Flonase Allergy Relief) 2 sprays intranasal DAILY 30 days hydrochlorothiazide 12.5 mg PO QAM loratadine 10 mg PO DAILY PRN metoprolol succinate ER 100 mg PO DAILY trazodone 100 mg PO BEDTIME PRN 30 days MDD Insomnia Do you need a note to return to daycare/school/sports/work: No HPI Obstructive sleep apnea HPI Details 63 [facility]. He claims during the summer months his nasal allergy was flaring up. And he could not use the CPAP regularly every night. Also it becomes uncomfortable after using for 2 or 3 hours. He did not like the fullface mask. He is back to nasal pillows, but the nose does get congested. He does not like to use Flonase, it irritates the nose, saline spray helps him just as much as Flonase. Lately due to change in the weather and temperatures cooling down, his nasal congestion is less and he is starting to use the CPAP more regularly. He can not fall asleep and sleep for 4-5 hours with the help of trazodone. He is convinced that trazodone is helping his sleep. Weight henao he has not made any progress. [facility] Medical History Insomnia Nocturnal hypoxemia Trigger finger, left index finger RLS (restless legs syndrome) Eczema Surgical History History of lumbar surgery Family History Father Diabetes Mother Gastric cancer Brother Prostate cancer Family/Other FH: mental illness Social History Housing: House Patient Tobacco Use Status: Former Tobacco user Tobacco use type: Cigarette e-Cigarette/Vaping Use: Never Used Current occupational status: employed Cognitive needs: No Hearing needs: No Vision needs: No Review of Systems Const All systems reviewed & are unremarkable except as noted in HPI and below Eyes Reports no additional complaints ENT Reports no additional complaints and Reports nasal congestion (almost daily ) Card Denies chest pain, Denies irregular heart rhythm and Denies leg edema Resp Reports no additional complaints GI Reports no additional complaints Reports no additional complaints Musc Reports no additional complaints Skin/Breast Reports system reviewed and no additional complaints, except as documented Neuro Reports no additional complaints Psych Reports no additional complaints Physical Exam Vital Signs: Last Vital Signs Pulse 69 08/03/23 09:27 BP 140/82 H 08/03/23 09:27 Pulse Ox 96 08/03/23 09:27 Oxygen Delivery Method Room Air 08/03/23 09:27 BMI result Body Mass Index 31.3 Const General: healthy appearing, comfortable, no acute distress, alert and awake Orientation/consciousness: patient oriented x3 HEENT Head: Yes normal to inspection General nose exam: No nasal polyps present and No nasal discharge present Face and sinus: Yes sinuses nontender Mouth: oropharynx normal Throat: Yes posterior oropharynx normal Eyes General: appearance normal, both eyes and all related structures Neck Neck: Yes normal visual inspection, Yes no lymphadenopathy, Yes trachea midline and Yes no JVD Thyroid: Thyroid normal Chest Chest palpation & inspection: normal inspection of the chest, normal palpation of entire chest wall and no tenderness Resp Effort & Inspection: normal respiratory effort Auscultation: clear to auscultation bilaterally, no rhonchi and no wheezes Percussion: percussion abnormal Cardio Palpation: normal PMI Rate: regular rate Rhythm: regular rhythm Heart sounds: no gallops and no murmurs Peripheral pulses: Peripheral pulses 2+ throughout GI Palpation (GI): Soft to palpation, nontender, No hepatosplenomegaly present and no masses Auscultation: normal bowel sounds Back/Spine/Pelvis Thoracic/Lumbar Spine: thoracic and lumbar spine normal to inspection Skin General skin exam: no rashes or lesions noted Neuro General: patient oriented x3 and no focal motor deficits Cranial nerves: Yes CN's II-XII intact bilaterally Extrem General: Yes normal to inspection, Yes no clubbing, cyanosis or edema and Yes no calf tenderness Psych Appearance: grossly normal and well kempt Speech and movement: Normal speech and movement present Results Reviewed Results Reviewed: Compliance report for the last 30 nights is reviewed. Use 17/30 nights, 57%. Average use per night 3 hours 51 minutes. Median pressure is 9.3 and 95th percentile pressure 12.1. No air leak is reported. Residual AHI 1.6 Assessment & Plan Assessment & Plan (1) GUS (obstructive sleep apnea): Comment: Patient is confirmed case of obstructive sleep apnea, with mild nocturnal hypoxemia and RLS. His compliance remains suboptimal, main reason being nasal congestion. He tried fullface mask but it did not work for him because he fell somewhat claustrophobic. He is back to using nasal pillows . Plan is to order antihistaminic spray to use before putting on the mask. tx: Azelastin nasal spray 1 spray each nostril at night before putting on the nasal mask. Code(s): G47.33 - Obstructive sleep apnea (adult) (pediatric) (2) Insomnia: Comment: HE HAS LONGSTANDING HISTORY OF DIFFICULTY IN FALLING AND MAINTAINING SLEEP. Trazodone is helping. Advised to continue using 100 mg before bedtime, every night. Code(s): G47.00 - Insomnia, unspecified Qualifiers: Insomnia type: primary Qualified Code(s): F51.01 - Primary insomnia (3) Rhinitis: Comment: This gentleman has chronic allergic rhinitis. Using Claritin 10 mg daily . P.r.n. He is in the process of making appointment with an sales specialist. Code(s): J31.0 - Chronic rhinitis Qualifiers: Rhinitis type: allergic Allergic rhinitis trigger: pollen Allergic rhinitis seasonality: non-seasonal Qualified Code(s): J30.1 - Allergic rhinitis due to pollen Coding Level of Care Code Est Pt Level 3 (35308) Diagnoses GUS (obstructive sleep apnea) G47.33 Primary insomnia F51.01 Insomnia type: primary Non-seasonal allergic rhinitis due to pollen J30.1 Rhinitis type: allergic Allergic rhinitis trigger: pollen Allergic rhinitis seasonality: non-seasonal
== END 2023-08-03 09:53 | disposition home or self-care (01) ==
PROVIDERS: PCP Physician Assistant; Visit Provider Internal Medicine
DX: G47.33 Obstructive sleep apnea (adult) (pediatric) (principal); F51.01 Primary insomnia; J30.1 Allergic rhinitis due to pollen
CPT/HCPCS: 99213

== ENCOUNTER → 2023-08-03 09:15 | Outpatient (BNVA) | payer OTHER, SELFPAY | PROVIDERS: PCP Physician Assistant; Visit Provider Internal Medicine ==

== ENCOUNTER 2023-09-26 11:32 | Outpatient (REF) | payer OTHER, SELFPAY ==
[2023-09-26 12:47] LABS: Hematocrit 47.9 % (42.0-52.0); Hemoglobin 16.4 g/dl (14.0-18.0); Mean Corpuscular HGB Conc 34.2 g/dl (31.0-36.0); Mean Corpuscular Hemoglobin 30.4 pg (27.0-33.0); Mean Corpuscular Volume 88.9 fL (80.0-98.0); Mean Platelet Volume 10.3 fL (9.4-12.4); Platelet Count 217 X10*3/uL (160-400); Red Blood Count 5.39 X10*6/uL (4.60-5.80); Red Cell Distribution Width 12.8 % (11.0-16.0); White Blood Count 11.1 X10*3/uL (4.8-10.8)
[2023-09-26 13:01] LABS: Alanine Aminotransferase 17 U/L (0-40); Albumin Level 3.9 g/dL (3.5-5.0); Alkaline Phosphatase 91 U/L (39-117); Anion Gap 13 (12-20); Aspartate Amino Transferase 17 U/L (5-37); Bilirubin Total 0.5 mg/dL (0.0-1.0); Blood Urea Nitrogen 14 mg/dL (9-16); Calcium 9.3 mg/dL (8.4-10.2); Carbon Dioxide 30 mmol/L (22-29); Chloride 106 mmol/L (96-108); Cholesterol 172 mg/dL (<200); Estimated Glomerular Filt Rate > 60; Glucose Fasting 94 mg/dL (60-99); HDL Cholesterol 39 mg/dL (>40); LDL Cholesterol Calculated 108 mg/dL (<100); Potassium 3.9 mmol/L (3.3-5.1); Sodium 145 mmol/L (135-145); Total Protein 6.9 g/dL (6.5-8.0); Triglycerides 126 mg/dL (<150)
[2023-09-26 13:17] LABS: Prostate Specific Antigen Scr 2.42 ng/mL (<0.05-4.0)
== END 2023-09-26 11:33 | disposition home or self-care (01) ==
LOC: HO.LAB 11:32
PROVIDERS: PCP Physician Assistant; Visit Provider Physician Assistant
DX: M79.10 Myalgia, unspecified site (principal); I10 Essential (primary) hypertension; E78.9 Disorder of lipoprotein metabolism, unspecified; Z12.5 Encounter for screening for malignant neoplasm of prostate
CPT/HCPCS: 36415; 80053; 80061; 82550; 84153; 85027

== ENCOUNTER 2023-10-10 08:44 | Emergency (ER) | payer OTHER, SELFPAY ==
[2023-10-10 08:49] VITALS: BP 142/92; PULSE 79; RESP 18; TEMP 36; O2SAT 96; BMI 32.6
[2023-10-10 09:24] LABS: MANUAL DIFF FLAG NO
[2023-10-10 09:28] LABS: Basophils Percent Auto 0.3 % (0-2); Eosinophils Absolute Auto 0.5 X10*3/uL (0.0-0.4); Eosinophils Percent Auto 4.5 % (0-4); Hematocrit 47.7 % (42.0-52.0); Hemoglobin 16.3 g/dl (14.0-18.0); Imm Gran Abs Auto 0.05 X10*3/uL (0.00-0.03); Imm Gran Pct Auto 0.4 % (0.0-0.4); Lymphocytes Absolute Auto 2.2 X10*3/uL (1.2-4.9); Lymphocytes Percent Auto 18.9 % (20-40); Mean Corpuscular HGB Conc 34.2 g/dl (31.0-36.0); Mean Corpuscular Hemoglobin 29.7 pg (27.0-33.0); Monocytes Absolute Auto 0.8 X10*3/uL (0.1-1.2); Monocytes Percent Auto 6.6 % (2-11); Neutrophils Percent Auto 69.3 % (45-73); Platelet Count 204 X10*3/uL (160-400); Red Blood Count 5.48 X10*6/uL (4.60-5.80); Red Cell Distribution Width 12.8 % (11.0-16.0); White Blood Count 11.6 X10*3/uL (4.8-10.8)
[2023-10-10 09:46] LABS: Alanine Aminotransferase 24 U/L (0-40); Alkaline Phosphatase 104 U/L (39-117); Anion Gap 11 (12-20); Aspartate Amino Transferase 21 U/L (5-37); Bilirubin Direct 0.1 mg/dL (0.0-0.5); Bilirubin Total 0.4 mg/dL (0.0-1.0); Blood Urea Nitrogen 19 mg/dL (9-16); C Reactive Protein 2.28 mg/dL (< or = 0.50); Calcium 9.6 mg/dL (8.4-10.2); Carbon Dioxide 28 mmol/L (22-29); Chloride 105 mmol/L (96-108); Creatinine Clr Calc Pharmacy 96.2; Estimated Glomerular Filt Rate > 60; Glucose Random 102 mg/dL (60-115); Lipase 21 U/L (8-78); Magnesium 1.9 mg/dL (1.6-2.6); Potassium 3.7 mmol/L (3.3-5.1); Sodium 140 mmol/L (135-145); Total Protein 7.4 g/dL (6.5-8.0)
[2023-10-10 09:58] LABS: COVID-19 Test Negative (Negative); IDNOW Serial# 08D9AD1C
--- NOTE | 2023-10-10 10:04 | PC.NURSE ---
patient a&ox3, labs drawn, swab obtained, pt awaiting results, breathing equal and non labored, call ag within reach, wll continue to monitor.
[2023-10-10 10:05] LABS: Erythrocyte Sedimentation Rate 19 MM/HR (0-15)
--- NOTE | 2023-10-10 10:25 | ED.GENADULT ---
HPI - General Adult General Chief complaint: General Medical Stated complaint: Muscle Joint Pain Time Seen by Provider: 10/10/23 09:05 Source: patient Mode of arrival: ambulatory Limitations: no limitations History of Present Illness HPI narrative: Patient is a 63-year-old male presenting to the emergency department with complaint of generalized muscle and joint pain for the past 5 weeks. He denies any fall or other injury. States that he went to bed 1 night and woke with diffuse muscle and joint pain which has waxed and waned since. Denies fevers. Denies any rashes or known tick bites. States that he does have a large yd and has been doing frequent yd work for the past several months. States that he contacted his PCP but does not have an appointment until 10/24. Reports that he is typically very active and works out daily but has had to cut back due to symptoms. MD complaint: Body aches Onset (ago): week(s) Severity: severe Quality: aching Pain Consistency: intermittent and colicky Relieving factors: medication Exacerbating factors: none Associated symptoms: denies other symptoms Treatments prior to arrival: NSAID Related Data Home Medications Medication Instructions Recorded Confirmed loratadine 10 mg tablet 10 mg PO DAILY PRN 11/21/22 06/19/23 Previous Rx's Medication Instructions Recorded fluticasone propionate 50 2 spray intranasal DAILY Allergic 11/21/22 mcg/actuation nasal Rhinitis 30 days #16 grams spray,suspension (Children's Flonase Allergy Relief) hydrochlorothiazide 12.5 mg capsule 12.5 mg PO QAM #90 caps 04/11/23 trazodone 100 mg tablet 100 mg PO BEDTIME PRN sleep 90 08/03/23 days #30 tabs diclofenac sodium 50 mg 50 mg PO BID 30 days #60 tabs 09/28/23 tablet,delayed release metoprolol succinate 100 mg 100 mg PO DAILY #90 tabs 10/03/23 tablet,extended release 24 hr doxycycline hyclate 100 mg tablet 100 mg PO BID #20 tabs 10/10/23 Allergies Allergy/AdvReac Type Severity Reaction Status Date / Time No Known Allergies Allergy Verified 08/03/23 09:52 [No Known Allergies*] Review of Systems Review of Systems: As per HPI. Yes all other systems are reviewed and are negative Constitutional: Constitutional: Reports as per HPI [facility] Past Medical History Medical History Insomnia Nocturnal hypoxemia Trigger finger, left index finger RLS (restless legs syndrome) Eczema Surgical History History of lumbar surgery Family History Family History Father Diabetes Mother Gastric cancer Brother Prostate cancer Family/Other FH: mental illness Social History Housing: House Patient Tobacco Use Status: Former Tobacco user Tobacco use type: Cigarette e-Cigarette/Vaping Use: Never Used Advance Directives: No Current occupational status: employed Cognitive needs: No Hearing needs: No Vision needs: No Physical Exam ED Vital Signs: Vital Signs - 24 hr 10/10/23 08:49 Temperature 96.8 F Pulse Rate 79 Respiratory Rate 18 Blood Pressure 142/92 H Pulse Oximetry 96 Oxygen Delivery Method Room Air BMI result Body Mass Index 32.6 Vital signs have been reviewed and appear to be correct. Blood pressure normal. Heart rate normal. Respiratory rate normal. Temperature normal. Oxygen saturation normal. Const General: cooperative, healthy appearing and no acute distress Orientation/consciousness: oriented to person, oriented to place, oriented to time and patient oriented x3 Limitations: no limitations HENMT Head: Yes normocephalic and Yes atraumatic Ears: external ears normal General nose exam: Normal external nose present Face and sinus: Yes face symmetric Mouth: oropharynx normal and moist mucous membranes Throat: Yes uvula midline Eyes Pupils: Equal, round and reactive pupils present Neck Neck: Yes normal visual inspection and Yes supple Resp Effort & Inspection: normal respiratory effort and able to speak in complete sentences Auscultation: clear to auscultation bilaterally Cardio Rate: regular rate Rhythm: regular rhythm Heart sounds: S1 normal heart sound present and S2 normal heart sound present GI Palpation (GI): Soft to palpation and nontender Auscultation: normoactive bowel sounds General: Yes no CVA tenderness Back/Spine/Pelvis Back: no CVA tenderness Skin General skin exam: elasticity normal and turgor normal Neuro General: oriented to person, oriented to place, oriented to time, patient oriented x3, moves all extremities, no focal motor deficits and CN's II-XI intact bilaterally Cranial nerves: Yes Equal, round and reactive pupils present Cognition (Neuro): normal cognition Extrem General: Yes full ROM, Yes no pedal edema and Yes no calf tenderness Psych Mental Status: mental status grossly normal Affect: normal affect Thought process: Normal thought process present Medical Decision Making Medical Decision Making [facility] Narrative: Patient is a 63-year-old male presenting to the emergency department with complaint of generalized muscle and joint pain for the past 5 weeks. On exam patient is awake, A+Ox3, VS WNL, afebrile, normal neurological exam without focal deficits, physical exam findings as above. Given reported symptoms and physical exam findings, initial differential includes myalgias, tick borne illness, viral infection. Covid swab negative. Labs notable for mild leukocytosis which appears baseline, no anemia, normal LFTs, elevation of CRP, a mild elevation of ESR. Results discussed with patient including treatment with doxycycline for presumed tick-borne illness. Patient states he is agreeable to starting doxycycline at this time while tick panel is pending. Will send prescription to pharmacy. Instructed patient to keep follow-up appointment with PCP on 10/24. Return precautions discussed. Patient verbalized understanding of and agreement with plan. Differential Diagnosis Differential Diagnoses: The differential diagnosis associated with the presentation includes As per MDM. Lab Data [facility] Lab Attestation statement: I reviewed the patient's lab results. As per MDM. 10/10/23 09:16 10/10/23 09:16 Labs: Lab Results 10/10/23 10/10/23 Range/Units 09:16 09:20 WBC 11.6 H (4.8-10.8) X10*3/uL RBC 5.48 (4.60-5.80) X10*6/uL Hgb 16.3 (14.0-18.0) g/dl Hct 47.7 (42.0-52.0) % MCV 87.0 (80.0-98.0) fL MCH 29.7 (27.0-33.0) pg MCHC 34.2 (31.0-36.0) g/dl RDW 12.8 (11.0-16.0) % Plt Count 204 (160-400) X10*3/uL MPV 10.0 (9.4-12.4) fL Immature Gran % (Auto) 0.4 (0.0-0.4) % Neut % (Auto) 69.3 (45-73) % Lymph % (Auto) 18.9 L (20-40) % Knott % (Auto) 6.6 (2-11) % Eos % (Auto) 4.5 H (0-4) % Baso % (Auto) 0.3 (0-2) % Lymph # (Auto) 2.2 (1.2-4.9) X10*3/uL Knott # (Auto) 0.8 (0.1-1.2) X10*3/uL Eos # (Auto) 0.5 H (0.0-0.4) X10*3/uL Baso # (Auto) 0.0 (0.0-0.2) X10*3/uL Abs Immat Gran (auto) 0.05 H (0.00-0.03) X10*3/uL Absolute Neuts (auto) 8.0 (2.0-8.3) x10*3/uL Absolute Nucleated RBC 0.000 (0.0-0.012) X10*3/uL Nucleated RBC % (auto) 0.0 (0.0-0.2) /100WBC ESR 19 H (0-15) MM/HR Sodium 140 (135-145) mmol/L Potassium 3.7 (3.3-5.1) mmol/L Chloride 105 (96-108) mmol/L Carbon Dioxide 28 (22-29) mmol/L Anion Gap 11 L (12-20) BUN 19 H (9-16) mg/dL Creatinine 0.94 (0.5-1.4) mg/dL Estim Creat Clear Calc 96.2 Estimated GFR > 60 Random Glucose 102 (60-115) mg/dL Calcium 9.6 (8.4-10.2) mg/dL Magnesium 1.9 (1.6-2.6) mg/dL Total Bilirubin 0.4 (0.0-1.0) mg/dL Direct Bilirubin 0.1 (0.0-0.5) mg/dL AST 21 (5-37) U/L ALT 24 (0-40) U/L Alkaline Phosphatase 104 (39-117) U/L Total Creatine Kinase 95 (38-174) U/L C-Reactive Protein 2.28 H (< or = 0.50) mg/dL Total Protein 7.4 (6.5-8.0) g/dL Albumin 4.0 (3.5-5.0) g/dL Lipase 21 (8-78) U/L COVID-19 (BOBBY) Negative (Negative) COVID-19 Clin Com See Note Influenza Type A (DAVIS) Cancelled Influenza Type B (DAVIS) Cancelled Influenza A & B Note Cancelled External Record Review External record reviewed: Inpatient record, Office record and Outpatient record Prescription Management I considered prescription management with: Antibiotic Chronic Conditions Patient?s care impacted by: Hypertension Discharge Plan Discharge Clinical Impression: Myalgia Patient Disposition: Home, Self-Care Instructions: Musculoskeletal Pain (ED) Additional Instructions: You were evaluated in the emergency department today for muscle and joint pain. You were tested for tick-borne illnesses and the results are pending. You will be contacted with any positive results. You are being treated presumptively with an antibiotic called doxycycline, please take the full course as prescribed. Please keep the follow-up appointment with your primary care provider. Return to the emergency department if you develop worsening pain, fever over 100.4? F, chest pain, palpitations, shortness of breath, or any other concerning symptoms. Prescriptions: New doxycycline hyclate 100 mg tablet 100 mg PO BID Qty: 20 0RF No Action hydrochlorothiazide 12.5 mg capsule 12.5 mg PO QAM Qty: 90 1RF diclofenac sodium 50 mg tablet,delayed release (DR/EC) 50 mg PO BID 30 Days Qty: 60 0RF metoprolol succinate 100 mg tablet extended release 24 hr 100 mg PO DAILY Qty: 90 1RF loratadine 10 mg tablet 10 mg PO DAILY PRN fluticasone propionate [Children's Flonase Allergy Rlf] 50 mcg/actuation spray,suspension 2 spray intranasal DAILY 30 Days Qty: 16 5RF Rx Instructions: administer into each nostril trazodone 100 mg tablet 100 mg PO BEDTIME MDD Insomnia PRN (Reason: sleep) 90 Days Qty: 30 3RF
[2023-10-10 11:57] LABS: Influenza A PCR NEGATIVE (Negative); Influenza B PCR NEGATIVE (Negative); Resp Syncy Virus RNA Qual PCR NEGATIVE (Negative); SARS COV2 PCR INHOUSE NEGATIVE (Negative)
[2023-10-13 00:19] LABS: A. Phagocytphilium DNA,RT-PCR NOT DETECTED (NOT DETECTED); Babesia Microti DNA, RT-PCR NOT DETECTED (NOT DETECTED); Borrelia Miyamotoi,DNA RT-PCR NOT DETECTED (NOT DETECTED); E.Chaffeensis DNA RT-PCR NOT DETECTED (NOT DETECTED); Lyme(Borrelia ssp)DNA RT-PCR NOT DETECTED (NOT DETECTED)
== END 2023-10-10 11:00 | disposition home or self-care (01) ==
PROVIDERS: Registered Nurse Emergency; Emergency Provider Emergency Medicine; PCP Physician Assistant
DX: M79.10 Myalgia, unspecified site (principal); Z20.822 Contact with and (suspected) exposure to COVID-19; Z20.828 Contact with and (suspected) exposure to other viral communicable diseases
CPT/HCPCS: 0241U; 36415; 80048; 80076; 82550; 83690; 83735; 85025; 85652; 86140; 87468; 87469; 87478; 87484; 87635; 87798; 99282; 99283

== ENCOUNTER 2023-10-24 11:19 | Outpatient (AMB) | payer OTHER, SELFPAY ==
[2023-10-24 11:20] VITALS: BP 160/98; PULSE 90; O2SAT 96; BMI 31.8
--- NOTE | 2023-10-24 11:20 | MHC.PC.OV ---
Vital Signs 10/24/23 11:20 Height 5 ft 9 in Weight 215 lb 0.6 oz BMI 31.8 BP 160/98 H Blood Pressure Location Lt brachial Position Sitting Pulse 90 Pulse Source Pulse Oximeter Pulse Oximetry (%) 96 Oxygen Delivery Method Room Air Intake Visit Reasons: Muscle Pain/Soreness Intake Note: pt seen at [facility] 10/10 myalgia, pt is till experiencing muscle pain and soreness with no relief Food Counselor Required: No Allergies No Known Allergies [No Known Allergies*] Allergy (Verified 10/24/23 11:33) Medication List - Last Reconciled 10/24/23 by SAMIR Garcia diclofenac sodium 50 mg PO BID 30 days fluticasone propionate 50 mcg/actuation (Children's Flonase Allergy Relief) 2 sprays intranasal DAILY 30 days hydrochlorothiazide 12.5 mg PO QAM loratadine 10 mg PO DAILY PRN metoprolol succinate ER 100 mg PO DAILY trazodone 100 mg PO BEDTIME PRN 90 days MDD Insomnia Tobacco use date assessed: 10/24/23 HPI Muscle Pain/Soreness HPI Details Patient is a 63-year-old male who presents today with bilateral shoulder pain and intermittent left knee pain for the past 7 weeks. Patient of KALPANA Andino. patient also reports that he had muscle pains in his legs and buttocks. He did go to emergency department [facility] 10/10/2023 for the same symptoms, blood work was negative with slightly elevated inflammatory markers. Lyme disease blood work was negative, he was discharged home with doxycycline for 10 days, he finished. Reports bilateral shoulder stiffness worse in the morning when waking up and better throughout the day with movement, reports that symptoms slightly improving, denies muscle aches. Denies injury. No shortness of breath or chest pain. [facility] Medical History Insomnia Nocturnal hypoxemia Trigger finger, left index finger RLS (restless legs syndrome) Eczema Surgical History History of lumbar surgery Family History Father Diabetes Mother Gastric cancer Brother Prostate cancer Family/Other FH: mental illness Social History Housing: House Patient Tobacco Use Status: Former Tobacco user Tobacco use type: Cigarette e-Cigarette/Vaping Use: Never Used Current occupational status: employed Cognitive needs: No Hearing needs: No Vision needs: No Questionnaire Thrive Questionnaire Date Thrive assessed: 12/13/22 AUDIT C Alcohol Use Questionnaire (AUDIT-C) 1. How often do you have a drink containing alcohol?: Monthly or less 2. How many drinks containing alcohol do you have on a typical day when you are drinking?: 1 or 2 3. How often do you have six or more drinks on one occasion?: Never Total Score: 1 Score Reviewed/Action Taken: No RISHI-7 AMB Questionnaire RISHI-7 Date RISHI - 7 assessed: 12/13/22 Source: Developed by Drs. Jeff Casillas, Tamela Jansen, Wayne Kate and colleagues, with an educational zain from [employer]. Review of Systems Const Denies body aches, Denies chills, Denies fever(s) and Denies headache(s) ENT Denies dizziness, Denies otalgia, Denies headache(s), Denies nasal discharge, Denies sinus pain and Denies sore throat Card Denies chest pain, Denies edema, Denies lightheadedness and Denies dyspnea Resp Denies cough, Denies dyspnea and Denies wheezing GI Denies constipation, Denies diarrhea, Denies nausea and Denies vomiting Denies dysuria Musc Reports as per HPI, Denies myalgias, Reports arthralgias, Denies joint swelling, Denies numbness and Denies tingling Skin/Breast Denies rash Neuro Denies dizziness, Denies headache(s), Denies numbness and Denies tingling Aller/Immun Denies wheezing Physical exam (Primary Care) Vital Signs: Last Vital Signs Pulse 90 10/24/23 11:20 BP 160/98 H 10/24/23 11:20 Pulse Ox 96 10/24/23 11:20 Oxygen Delivery Method Room Air 10/24/23 11:20 BMI result Body Mass Index 31.8 Tobacco/Smoking Status: Tobacco use Status Tobacco use date assessed 10/24/23 10/24/23 11:21 Patient Tobacco Use Status Former Tobacco user 10/24/23 11:21 Tobacco use type Cigarette 10/24/23 11:21 e-Cigarette/Vaping Use Never Used 10/24/23 11:21 Thrive Assessment: Date of Thrive Assessment Date Thrive assessed 12/13/22 10/24/23 11:21 Const General: cooperative and no acute distress Orientation/consciousness: patient oriented x3 HENMT Head: Yes normocephalic and Yes atraumatic Face and sinus: Yes sinuses nontender Mouth: oropharynx normal and moist mucous membranes Throat: Yes posterior oropharynx normal Eyes General: appearance normal, both eyes and all related structures Neck Neck: Yes normal visual inspection, Yes full ROM and Yes no lymphadenopathy Resp Effort & Inspection: normal respiratory effort and able to speak in complete sentences Auscultation: clear to auscultation bilaterally, no crackles, no rales, no rhonchi and no wheezes Cardio Rate: regular rate Rhythm: regular rhythm Heart sounds: S1 normal heart sound present and S2 normal heart sound present GI Auscultation: normal bowel sounds Skin Other: Left scalp with slightly raised brown area noted about 5mm Neuro General: patient oriented x3 Gait exam (Neuro): Normal gait present Extrem Other: Bilateral shoulder nontender, full range of motion Left knee nontender, full range of motion General: Yes full ROM and No edema Assessment and Plan Assessment & Plan (1) Bilateral shoulder pain: Code(s): M25.511 - Pain in right shoulder; M25.512 - Pain in left shoulder Plan: Will obtain x-rays Patient would like to hold off on PT referral at this time Encouraged heat/cold packs p.r.n. Blood work ordered (2) Myalgia: Code(s): M79.10 - Myalgia, unspecified site Plan: Same as above Orders: Orders LORNA Reflex Titer and Pattern Today M79.10 - Myalgia, unspecified site XR shoulder LT min 2V Today M25.511 - Pain in right shoulder, M25.512 - Pain in left shoulder Lyme IgG/IgM w/reflex to WB Today M25.511 - Pain in right shoulder, M25.512 - Pain in left shoulder, M79.10 - Myalgia, unspecified site Rheumatoid Factor Today M79.10 - Myalgia, unspecified site Vitamin D 25-OH Total Today M79.10 - Myalgia, unspecified site Vitamin B12 and Folate Today M79.10 - Myalgia, unspecified site XR shoulder RT min 2V Today M25.511 - Pain in right shoulder, M25.512 - Pain in left shoulder Coding Level of Care Code Est Pt Level 3 (73485) Diagnoses Bilateral shoulder pain M25.511; M25.512 Myalgia M79.10
== END 2023-10-24 12:35 | disposition home or self-care (01) ==
PROVIDERS: PCP Physician Assistant; Visit Provider Nurse Practitioner Family
DX: M25.511 Pain in right shoulder (principal); M25.512 Pain in left shoulder; M79.10 Myalgia, unspecified site
CPT/HCPCS: 99213

== ENCOUNTER 2023-11-03 13:13 | Outpatient (REF) | payer OTHER, SELFPAY ==
[2023-11-03 14:12] LABS: Rheumatoid Factor < 13.0 IU/mL (<15.0)
[2023-11-03 14:37] LABS: Vitamin D 25-OH Total 22.2 ng/mL (>30)
[2023-11-03 14:43] LABS: Folate 9.9 ng/mL (> or = 4.0); Vitamin B12 695 pg/mL (200-900)
[2023-11-07 15:22] LABS: Anti Nuclear Antibody Screen NEGATIVE (NEGATIVE)
[2023-11-07 18:54] LABS: Lyme Abs Screen <0.90 index
== END 2023-11-03 13:14 | disposition home or self-care (01) ==
LOC: HO.LAB 13:13
PROVIDERS: PCP Physician Assistant; Visit Provider Nurse Practitioner Family
DX: M25.511 Pain in right shoulder (principal); M25.512 Pain in left shoulder; M79.10 Myalgia, unspecified site
CPT/HCPCS: 36415; 82306; 82607; 82746; 86038; 86431; 86617; 86618

== ENCOUNTER 2023-12-08 13:47 | Outpatient (REF) | payer OTHER, SELFPAY ==
--- NOTE | ~2023-12-08 | XR_ITS ---
EXAMINATION: XR BILATERAL SHOULDERS CLINICAL INFORMATION: Pain in bilateral shoulders. COMPARISON: None available. TECHNIQUE: 4 views were obtained of each shoulder. FINDINGS: Right Shoulder: Moderate degenerative changes in the acromioclavicular joint with joint space narrowing and hypertrophic change. Mild degenerative changes with hypertrophic change along the glenoid. Left Shoulder: Moderate degenerative changes in the acromioclavicular joint with joint space narrowing and hypertrophic change. Degenerative changes with hypertrophic change along the glenoid. 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
--- NOTE | ~2023-12-08 | XR_ITS ---
EXAMINATION: XR BILATERAL SHOULDERS CLINICAL INFORMATION: Pain in bilateral shoulders. COMPARISON: None available. TECHNIQUE: 4 views were obtained of each shoulder. FINDINGS: Right Shoulder: Moderate degenerative changes in the acromioclavicular joint with joint space narrowing and hypertrophic change. Mild degenerative changes with hypertrophic change along the glenoid. Left Shoulder: Moderate degenerative changes in the acromioclavicular joint with joint space narrowing and hypertrophic change. Degenerative changes with hypertrophic change along the glenoid. 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
== END 2023-12-08 13:48 | disposition home or self-care (01) ==
LOC: HO.XRAY 13:47
PROVIDERS: PCP Physician Assistant; Visit Provider Nurse Practitioner Family
DX: M25.511 Pain in right shoulder (principal); M25.512 Pain in left shoulder
CPT/HCPCS: 73030

== ENCOUNTER 2023-12-20 07:51 | Outpatient (AMB) | payer OTHER, SELFPAY ==
[2023-12-20 08:08] VITALS: BP 128/80; PULSE 62; O2SAT 96; BMI 32.3
--- NOTE | 2023-12-20 08:08 | A.OFFPC_ITS ---
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 Accompanied by: Self / Same As Patient Allergies No Known Allergies [No Known Allergies*] Allergy (Verified 12/20/23 08:18) Medication List - Last Reconciled 12/20/23 by Lucas Andino PA-C diclofenac sodium 50 mg PO BID 30 days hydrochlorothiazide 12.5 mg PO QAM loratadine 10 mg PO DAILY PRN metoprolol succinate ER 100 mg PO DAILY trazodone 100 mg PO BEDTIME PRN Tobacco use date assessed: 12/20/23 Dental Screening Dental Screen Date: 12/20/23 Did you have a dental visit in the last 12 months?: No Did you have a dental problem in the last 6 months where you did not have access to dental care?: No Was dental information given to patient?: Patient has dentist HPI f/u hTN/ GUS HPI Details Patient is a 63-year-old male here today for a follow-up visit. Patient's past medical history significant for obstructive sleep apnea, insomnia, borderline high cholesterol and hypertension. .. Hypertension: Blood pressure acceptable today in office. Denies any headaches, vision issues or chest discomfort. Concerns--> has been having bilateral shoulder pain, knee and hip pain has gotten x-ray that did show moderate arthritis. Rheumatology testing and Lyme testing was negative. Reports his joints feel very stiff in the morning. He has been using diclofenac sodium without much long-lasting relief. PLAN: I suspect he has PMR thus will initiate steroid treatment and follow-up with patient in 4 weeks. .. Obstructive sleep apnea: He reports he has been compliant with nightly use of CPAP machine though due to his allergies he has been finding it very difficult to keep the CPAP mask on all night. Reports he gets a lot of benefit from using CPAP machine with increased energy during the day. The addition of trazodone has helped his sleep quality tremendously Laboratory Tests 09/15/22 09/26/23 10/10/23 01:58 12:11 09:16 WBC 12.6 H 11.1 H 11.6 H 25-OH Vitamin D To larry Rheumatoid Factor LORNA Screen Lyme Screen IgG & IgM 11/03/23 11/03/23 13:30 13:30 WBC 25-OH Vitamin D To larry 22.2 L Rheumatoid Factor < 13.0 LORNA Screen NEGATIVE Lyme Screen IgG & IgM <0.90 PFSH Medical History Insomnia Nocturnal hypoxemia Trigger finger, left index finger RLS (restless legs syndrome) Eczema Surgical History History of lumbar surgery Family History Father Diabetes Mother Gastric cancer Brother Prostate cancer Family/Other FH: mental illness Social History Housing: House Patient Tobacco Use Status: Former Tobacco user Tobacco use type: Cigarette e-Cigarette/Vaping Use: Never Used Second Hand Smoke Exposure: No service: No Current occupational status: employed Cognitive needs: No Hearing needs: No Vision needs: Yes Questionnaire PHQ-9 Over the last 2 weeks, how often have you been bothered by any of the following problems? 1. Little interest or pleasure in doing things: not at all 2. Feeling down, depressed, or hopeless: not at all 3. Trouble falling or staying asleep, or sleeping too much: not at all 4. Feeling tired or having little energy: not at all 5. Poor appetite or overeating: not at all 6. Feeling bad about yourself - or that you are a failure or have let yourself or your family down: not at all 7. Trouble concentrating on things, such as reading the newspaper or watching television: not at all 8. Moving or speaking so slowly that other people could have noticed. Or the opposite - being so fidgety or restless that you have been moving around a lot more than usual: not at all 9. Thoughts that you would be better off or of hurting yourself in some way: not at all Total score: 0 Source: Developed by Drs. Jeff Casillas, Tamela Jansen, Wayne Kate and colleagues, with an educational zain from [employer]. Thrive Questionnaire Date Thrive assessed: 12/20/23 I am a: Patient What is your living situation today?: I have a steady place to live Within the past 12 months, did the food you bought not last and you didn't have the money to get more?: Never true Within the past 12 months, did you worry whether your food would run out before you got money to buy more?: Never true Do you have trouble paying for medicines?: No Do you have trouble getting transportation to medical appointments?: No Do you have trouble paying your heating and electricity bill?: No Do you have trouble taking care of your child, family member or friend?: No Do you have trouble with day-to-day activities such as bathing, preparing meals, shopping, managing finances, etc.?: No Are you currently unemployed and looking for a job?: No Are you interested in more education?: No Please select the resources that you would like help with: None Currently or been in a relationship where the following occur: no concerns reported THRIVE Score: 0 AUDIT C Alcohol Use Questionnaire (AUDIT-C) 1. How often do you have a drink containing alcohol?: Monthly or less 2. How many drinks containing alcohol do you have on a typical day when you are drinking?: 1 or 2 3. How often do you have six or more drinks on one occasion?: Never Total Score: 1 RISHI-7 AMB Questionnaire RISHI-7 Date RISHI - 7 assessed: 12/20/23 Feeling nervous, anxious, or on edge: 0 = Not at all Not being able to stop or control worryin = Not at all Worrying too much about different things: 0 = Not at all Trouble relaxin = Not at all Being so restless that it is hard to sit still: 0 = Not at all Becoming easily annoyed or irritable: 0 = Not at all Feeling afraid as if something awful might happen: 0 = Not at all Total RISHI-7 score (0-4 normal; 5-9 mild; 10-14 moderate; 15-21 severe): 0 Source: Developed by Drs. Jeff Casillas, Tamela Jansen, Wayne Kate and colleagues, with an educational zain from [employer]. Review of Systems Const Denies headache(s) Eyes Denies loss of vision ENT Denies vertigo, Denies dizziness, Denies headache(s) and Denies sore throat Card Denies chest pain, Denies leg edema and Denies lightheadedness Resp Denies cough, Denies hemoptysis and Denies wheezing GI Denies abdominal pain, Denies melena, Denies constipation, Denies diarrhea and Denies vomiting Denies dysuria, Denies urinary frequency and Denies urinary urgency Musc Details: + bilateral shoulder pain Reports back pain, Reports arthralgias, Denies joint swelling, Reports limited range of motion, Denies numbness and Denies tingling Neuro Denies Abnormal speech present, Denies behavioral changes, Denies vertigo, Denies dizziness, Denies headache(s), Denies loss of vision, Denies memory loss, Denies numbness and Denies tingling Psych Denies anxiety, Denies behavioral changes, Denies depression, Denies memory loss and Denies panic attacks Kodak/Lymph Denies easy bleeding and Denies easy bruising Aller/Immun Denies wheezing Physical exam (Primary Care) Vital Signs: Last Vital Signs Pulse 62 12/20/23 08:08 BP 128/80 12/20/23 08:08 Pulse Ox 96 12/20/23 08:08 Oxygen Delivery Method Room Air 12/20/23 08:08 BMI result Body Mass Index 32.3 Tobacco/Smoking Status: Tobacco use Status Tobacco use date assessed 12/20/23 12/20/23 08:14 Patient Tobacco Use Status Former Tobacco user 12/20/23 08:14 Tobacco use type Cigarette 12/20/23 08:14 e-Cigarette/Vaping Use Never Used 12/20/23 08:14 PHQ-9: PHQ-9 Score PHQ-9: Total score 0 12/20/23 08:14 Thrive Assessment: Date of Thrive Assessment Date Thrive assessed 12/20/23 12/20/23 08:14 Currently or been in a relationship where the following occur: no concerns reported Const General: healthy appearing, no acute distress, alert and awake Nutritional Appearance: well nourished Orientation/consciousness: oriented to person, oriented to place and oriented to time HENMT Ears: TM's normal bilaterally General nose exam: Normal nasal mucous membranes and turbinates present Eyes Conjunctivae: conjunctivae normal Sclerae: sclerae normal Pupils: Equal, round and reactive pupils present Neck Neck: Yes no lymphadenopathy and Yes no JVD Thyroid: Thyroid normal Carotids: no bruits Resp Effort & Inspection: normal respiratory effort and not tachypneic Auscultation: no crackles, no rales, no rhonchi and no wheezes Cardio Rate: regular rate Rhythm: regular rhythm Heart sounds: no murmurs and normal S1 and S2 GI Palpation (GI): Soft to palpation, nontender, no hepatomegaly and no splenomegaly Auscultation: normal bowel sounds Skin General skin exam: no rashes or lesions noted and dry skin Neuro General: oriented to person, oriented to place and oriented to time Cranial nerves: Yes Equal, round and reactive pupils present Speech: No Abnormal speech present Gait exam (Neuro): Normal gait present Motor exam (neuro): no tremor noted Extrem Right upper extremity: full ROM Left upper extremity: full ROM Right lower extremity: full ROM; no edema Left lower extremity: full ROM; no edema Psych Mental Status: mental status grossly normal Speech and movement: Normal speech and movement present Affect: normal affect Attitude: cooperative Thought process: Normal thought process present Assessment and Plan Assessment & Plan (1) HTN (hypertension): Code(s): I10 - Essential (primary) hypertension Qualifiers: Hypertension type: essential hypertension Qualified Code(s): I10 - Essential (primary) hypertension Plan: Blood pressure acceptable today in office. Will continue his current dose of antihypertensive medication with goal blood pressure to remain below 140/90 (2) Polyarthralgia: Code(s): M25.50 - Pain in unspecified joint (3) PMR (polymyalgia rheumatica): Code(s): M35.3 - Polymyalgia rheumatica Plan: I suspect he has PMR thus will start prednisone taper for the next few weeks. Will follow-up in 4 weeks to see if he has had any benefit from medication. (4) GUS (obstructive sleep apnea): Comment: Patient is confirmed case of obstructive sleep apnea, with mild nocturnal hypoxemia and RLS. His compliance remains suboptimal, main reason being nasal congestion. He tried fullface mask but it did not work for him because he fell somewhat claustrophobic. He is back to using nasal pillows . Plan is to order antihistaminic spray to use before putting on the mask. tx: Azelastin nasal spray 1 spray each nostril at night before putting on the nasal mask. Code(s): G47.33 - Obstructive sleep apnea (adult) (pediatric) Plan: He reports he is compliant with his CPAP machine on a nightly basis. He understands the benefit of using CPAP machine on nightly basis. He does use CPAP machine at least 4 hours per night 21 days of the month. He finds it very difficult to use the mask throughout the night while he has allergy symptoms. (5) Borderline high cholesterol: Code(s): E78.9 - Disorder of lipoprotein metabolism, unspecified Plan: Patient's most recent fasting lipid panel showing borderline high total cholesterol. He will work on lifestyle modifications to reduce his high cholesterol. (6) Obese: Code(s): E66.9 - Obesity, unspecified Qualifiers: Obesity type: due to excess calories Obesity classification: adult class 1 (BMI 30 - 34.9) Serious obesity comorbidity presence: without serious comorbidity Body mass index: BMI 33.0-33.9 Qualified Code(s): E66.09 - Other obesity due to excess calories; Z68.33 - Body mass index [BMI] 33.0-33.9, adult Plan: Patient does understand his BMI is over 30 will work on being more physically active and adapting to better eating habits to reduce his weight Orders: Orders Lipid Panel Today E78.9 - Disorder of lipoprotein metabolism, unspecified Prostate Specific Antigen Scr Today E78.9 - Disorder of lipoprotein metabolism, unspecified, Z12.5 - Encounter for screening for malignant neoplasm of prostate Microalbumin, Random (w Creat) Today I10 - Essential (primary) hypertension Comprehensive [place]. Panel Fast Today I10 - Essential (primary) hypertension Complete Blood Count no Diff Today I10 - Essential (primary) hypertension Medications: New prednisone Week 1 of therapy 20 mg PO DAILY 7 days 7 tabs 0RF M35.3 - Polymyalgia rheumatica prednisone Week 2-5 of therapy 10 mg PO DAILY 21 days 21 tabs 0RF M35.3 - Polymyalgia rheumatica Coding Level of Care Code Est Pt Level 4 (76616) Diagnoses Essential hypertension I10 Hypertension type: essential hypertension Polyarthralgia M25.50 PMR (polymyalgia rheumatica) M35.3 GUS (obstructive sleep apnea) G47.33 Borderline high cholesterol E78.9 Class 1 obesity due to excess calories without serious comorbidity with body mass index (BMI) of 33.0 to 33.9 in adult E66.09; Z68.33 Obesity type: due to excess calories Obesity classification: adult class 1 (BMI 30 - 34.9) Serious obesity comorbidity presence: without serious comorbidity Body mass index: BMI 33.0-33.9
== END 2023-12-20 08:55 | disposition home or self-care (01) ==
PROVIDERS: PCP Physician Assistant; Visit Provider Physician Assistant
DX: I10 Essential (primary) hypertension (principal); M25.50 Pain in unspecified joint; M35.3 Polymyalgia rheumatica; G47.33 Obstructive sleep apnea (adult) (pediatric); E78.9 Disorder of lipoprotein metabolism, unspecified; E66.09 Other obesity due to excess calories; Z68.33 Body mass index [BMI] 33.0-33.9, adult
CPT/HCPCS: 99214

== ENCOUNTER 2024-02-06 14:45 | Outpatient (AMB) | payer OTHER, SELFPAY ==
--- NOTE | 2024-02-06 15:02 | A.OFFPC_ITS ---
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 Patient's past medical history significant for obstructive sleep apnea, insomnia, borderline high cholesterol and hypertension. .. Hypertension: Blood pressure acceptable today in office. Denies any headaches, vision issues or chest discomfort. Polyarthralgia (? PMR) : has been having bilateral shoulder pain, knee and hip pain has gotten x-ray that did show moderate arthritis. Rheumatology testing and Lyme testing was negative. Reports his joints feel very stiff in the morning. He has been using diclofenac sodium without much long-lasting relief. I had a suspicion he had PMR thus started on prednisone and reports significant relief in his joint pains. Unfortunately when stopping prednisone for 2 days his joint pains returned to his original pain severity. PLAN: Will continue 5 mg for the next 3 weeks and consider reducing prednisone dose to 2.5 mg for another 3 weeks and titrate down further. [facility] Medical History Insomnia Nocturnal hypoxemia Trigger finger, left index finger RLS (restless legs syndrome) Eczema Surgical History History of lumbar surgery Family History Father Diabetes Mother Gastric cancer Brother Prostate cancer Family/Other FH: mental illness Social History Housing: House Patient Tobacco Use Status: Former Tobacco user Tobacco use type: Cigarette e-Cigarette/Vaping Use: Never Used Second Hand Smoke Exposure: No service: No Current occupational status: employed Cognitive needs: No Hearing needs: No Vision needs: Yes Questionnaire Thrive Questionnaire Date Thrive assessed: 12/20/23 RISHI-7 AMB Questionnaire RISHI-7 Date RISHI - 7 assessed: 12/20/23 Source: Developed by Drs. Jeff Casillas, Tamela Jansen, Wayne Kate and colleagues, with an educational zain from [employer]. Physical exam (Primary Care) Vital Signs: Last Vital Signs Pulse 45 L 02/06/24 15:08 Resp 16 02/06/24 15:08 BP 138/80 02/06/24 15:08 Pulse Ox 96 02/06/24 15:08 Oxygen Delivery Method Room Air 02/06/24 15:08 BMI result Body Mass Index 32.4 Tobacco/Smoking Status: Tobacco use Status Tobacco use date assessed 12/20/23 02/06/24 15:03 Patient Tobacco Use Status Former Tobacco user 02/06/24 15:03 Tobacco use type Cigarette 02/06/24 15:03 e-Cigarette/Vaping Use Never Used 02/06/24 15:03 Thrive Assessment: Date of Thrive Assessment Date Thrive assessed 12/20/23 02/06/24 15:03 Assessment and Plan Assessment & Plan (1) PMR (polymyalgia rheumatica): Code(s): M35.3 - Polymyalgia rheumatica Plan: has been started on glucocorticoid steroid which has provided him significant relief in his pelvic and pectoral girdle joint pain. He is now able to work and do all of his activities of daily living. Have reduced his dose down to 5 mg which has been effective. Does report some mild side effects such as some vision changes. Orders: Orders Erythrocyte Sedimentation Rate Today M35.3 - Polymyalgia rheumatica Medications: Discontinued diclofenac sodium Discontinued Reason: Doctor's Order 50 mg PO BID 30 days 60 tabs 0RF M79.10 - Myalgia, unspecified site Coding Level of Care Code Est Pt Level 3 (40505) Diagnoses PMR (polymyalgia rheumatica) M35.3
[2024-02-06 15:08] VITALS: BP 138/80; PULSE 45; RESP 16; O2SAT 96; BMI 32.4
== END 2024-02-06 16:25 | disposition home or self-care (01) ==
PROVIDERS: PCP Physician Assistant; Visit Provider Physician Assistant
DX: M35.3 Polymyalgia rheumatica (principal)
CPT/HCPCS: 99213

== ENCOUNTER 2024-04-25 08:30 | Outpatient (AMB) | payer OTHER, SELFPAY ==
[2024-04-25 08:32] VITALS: BP 146/82; PULSE 61; O2SAT 96; BMI 31.7
--- NOTE | 2024-04-25 08:32 | A.OFFPC_ITS ---
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 He reports over the last 5 days not having a bowel movement. Fortunately as of 8 hours going did evacuate his bowels twice and now feels much better. He does report doing physically demanding job and 90-100 degree he which may have caused his dehydration and constipation. [facility] Medical History Insomnia Nocturnal hypoxemia Trigger finger, left index finger RLS (restless legs syndrome) Eczema Surgical History History of lumbar surgery Family History Father Diabetes Mother Gastric cancer Brother Prostate cancer Family/Other FH: mental illness Social History Housing: House Patient Tobacco Use Status: Former Tobacco user Tobacco use type: Cigarette e-Cigarette/Vaping Use: Never Used Second Hand Smoke Exposure: No service: No Current occupational status: employed Cognitive needs: No Hearing needs: No Vision needs: Yes Questionnaire Thrive Questionnaire Date Thrive assessed: 12/20/23 RISHI-7 AMB Questionnaire RISHI-7 Date RISHI - 7 assessed: 12/20/23 Source: Developed by Drs. Jeff Casillas, Tamela Jansen, Wayne Kate and colleagues, with an educational zain from [employer]. Review of Systems Const Denies headache(s) Eyes Denies loss of vision ENT Denies vertigo, Denies dizziness, Denies headache(s) and Denies sore throat Card Denies chest pain, Denies leg edema and Denies lightheadedness Resp Denies cough, Denies hemoptysis and Denies wheezing GI Denies abdominal pain, Denies melena, Reports constipation, Denies diarrhea and Denies vomiting Denies dysuria, Denies urinary frequency and Denies urinary urgency Musc Denies arthralgias, Denies joint swelling, Denies numbness and Denies tingling Neuro Denies Abnormal speech present, Denies behavioral changes, Denies vertigo, Denies dizziness, Denies headache(s), Denies loss of vision, Denies memory loss, Denies numbness and Denies tingling Psych Denies anxiety, Denies behavioral changes, Denies depression, Denies memory loss and Denies panic attacks Kodak/Lymph Denies easy bleeding and Denies easy bruising Aller/Immun Denies wheezing Physical exam (Primary Care) Vital Signs: Last Vital Signs Pulse 61 04/25/24 08:32 BP 146/82 H 04/25/24 08:32 Pulse Ox 96 04/25/24 08:32 Oxygen Delivery Method Room Air 04/25/24 08:32 BMI result Body Mass Index 31.7 Tobacco/Smoking Status: Tobacco use Status Tobacco use date assessed 12/20/23 04/25/24 08:38 Patient Tobacco Use Status Former Tobacco user 04/25/24 08:38 Tobacco use type Cigarette 04/25/24 08:38 e-Cigarette/Vaping Use Never Used 04/25/24 08:38 Thrive Assessment: Date of Thrive Assessment Date Thrive assessed 12/20/23 04/25/24 08:38 Const General: healthy appearing, no acute distress, alert and awake Nutritional Appearance: well nourished Orientation/consciousness: oriented to person, oriented to place and oriented to time HENMT Ears: TM's normal bilaterally General nose exam: Normal nasal mucous membranes and turbinates present Eyes Conjunctivae: conjunctivae normal Sclerae: sclerae normal Pupils: Equal, round and reactive pupils present Neck Neck: Yes no lymphadenopathy and Yes no JVD Thyroid: Thyroid normal Carotids: no bruits Resp Effort & Inspection: normal respiratory effort and not tachypneic Auscultation: no crackles, no rales, no rhonchi and no wheezes Cardio Rate: regular rate Rhythm: regular rhythm Heart sounds: no murmurs and normal S1 and S2 GI Palpation (GI): Soft to palpation, nontender, no hepatomegaly and no splenomegaly Auscultation: normal bowel sounds Skin General skin exam: no rashes or lesions noted and dry skin Neuro General: oriented to person, oriented to place and oriented to time Cranial nerves: Yes Equal, round and reactive pupils present Speech: No Abnormal speech present Gait exam (Neuro): Normal gait present Motor exam (neuro): no tremor noted Extrem Right upper extremity: full ROM Left upper extremity: full ROM Right lower extremity: full ROM; no edema Left lower extremity: full ROM; no edema Psych Mental Status: mental status grossly normal Speech and movement: Normal speech and movement present Affect: normal affect Attitude: cooperative Thought process: Normal thought process present Assessment and Plan Assessment & Plan (1) Constipation: Code(s): K59.00 - Constipation, unspecified Qualifiers: Constipation type: slow transit constipation Qualified Code(s): K59.01 - Slow transit constipation Plan: Experiencing constipation in the setting of heavy labor and sweating. He has evacuated his bowels twice over the last 8 hours and feels much better. Advised to drink more fluids Given samples of MiraLax today in office. (2) Dehydration: Code(s): E86.0 - Dehydration Plan: As above Coding Level of Care Code Est Pt Level 3 (17291) Diagnoses Slow transit constipation K59.01 Constipation type: slow transit constipation Dehydration E86.0
== END 2024-04-25 09:12 | disposition home or self-care (01) ==
PROVIDERS: PCP Physician Assistant; Visit Provider Physician Assistant
DX: K59.01 Slow transit constipation (principal); E86.0 Dehydration
CPT/HCPCS: 99213

== ENCOUNTER 2024-05-13 09:46 | Outpatient (AMB) | payer OTHER, SELFPAY ==
--- NOTE | 2024-05-13 09:48 | MHC.PC.OV ---
Vital Signs 05/13/24 09:49 Height 5 ft 9 in Weight 220 lb 2 oz BMI 32.5 BP 138/86 Blood Pressure Location Lt brachial Position Sitting Pulse 50 Pulse Source Pulse Oximeter Pulse Oximetry (%) 97 Oxygen Delivery Method Room Air Intake Visit Reasons: SHOULDER PAIN Intake Note: Pt is here for ongoing B/L shoulder and right hip pain since August. 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 Patient's past medical history significant for obstructive sleep apnea, insomnia, borderline high cholesterol and hypertension. Concern--> reports having low libido and fatigue to which he attributes to his sleeping issues. He would like to have his testosterone checked. .. Hypertension: Blood pressure acceptable today in office. Denies any headaches, vision issues or chest discomfort. Polyarthralgia (? PMR) : has been having bilateral shoulder pain, knee and hip pain has gotten x-ray that did show moderate arthritis. Rheumatology testing and Lyme testing was negative. Reports his joints feel very stiff in the morning. He has been using diclofenac sodium without much long-lasting relief. Of note did have elevated ESR He has been off of prednisone over last few weeks and reports his bilateral shoulder pain and clavicle pain has returned PLAN: Will restart low-dose prednisone 2.5 mg daily [facility] Medical History Insomnia Nocturnal hypoxemia Trigger finger, left index finger RLS (restless legs syndrome) Eczema Surgical History History of lumbar surgery Family History Father Diabetes Mother Gastric cancer Brother Prostate cancer Family/Other FH: mental illness Social History Housing: House Patient Tobacco Use Status: Former Tobacco user Tobacco use type: Cigarette e-Cigarette/Vaping Use: Never Used Second Hand Smoke Exposure: No service: No Current occupational status: employed Cognitive needs: No Hearing needs: No Vision needs: Yes Questionnaire Thrive Questionnaire Date Thrive assessed: 12/20/23 RISHI-7 AMB Questionnaire RISHI-7 Date RISHI - 7 assessed: 12/20/23 Source: Developed by Drs. Jeff Casillas, Tamela Jansen, Wayne Kate and colleagues, with an educational zain from [employer]. Review of Systems Const Denies excessive sweating, Denies fatigue and Denies headache(s) Eyes Denies loss of vision ENT Denies vertigo, Denies dizziness, Denies headache(s) and Denies sore throat Card Denies chest pain, Denies leg edema and Denies lightheadedness Resp Denies cough, Denies hemoptysis and Denies wheezing GI Denies abdominal pain, Denies melena, Denies constipation, Denies diarrhea and Denies vomiting Denies dysuria, Denies urinary frequency and Denies urinary urgency Musc Details: + bilateral shoulder and hip pains Reports arthralgias, Denies joint swelling, Denies numbness and Denies tingling Skin/Breast Denies rash and Denies skin ulcer Neuro Denies Abnormal speech present, Denies behavioral changes, Denies vertigo, Denies dizziness, Denies headache(s), Denies loss of vision, Denies memory loss, Denies numbness and Denies tingling Psych Denies anxiety, Denies behavioral changes, Denies depression, Denies memory loss and Denies panic attacks Endo Denies excessive sweating, Denies fatigue, Denies flushing, Denies polydipsia and Denies polyuria Kodak/Lymph Denies easy bleeding and Denies easy bruising Aller/Immun Denies wheezing Physical exam (Primary Care) Vital Signs: Last Vital Signs Pulse 50 05/13/24 09:49 BP 138/86 05/13/24 09:49 Pulse Ox 97 05/13/24 09:49 Oxygen Delivery Method Room Air 05/13/24 09:49 BMI result Body Mass Index 32.5 Tobacco/Smoking Status: Tobacco use Status Tobacco use date assessed 12/20/23 05/13/24 09:48 Patient Tobacco Use Status Former Tobacco user 05/13/24 09:48 Tobacco use type Cigarette 05/13/24 09:48 e-Cigarette/Vaping Use Never Used 05/13/24 09:48 Thrive Assessment: Date of Thrive Assessment Date Thrive assessed 12/20/23 05/13/24 09:48 Const General: healthy appearing, no acute distress, alert and awake Nutritional Appearance: well nourished Orientation/consciousness: oriented to person, oriented to place and oriented to time HENMT Head: Yes normocephalic Ears: TM's normal bilaterally General nose exam: Normal nasal mucous membranes and turbinates present Face and sinus: No sinus tenderness Mouth: Normal oral and palatal mucosa present and tongue normal Teeth and gingiva: dentition normal and gingiva normal Throat: Yes posterior oropharynx normal, Yes tonsils normal and Yes uvula midline Eyes Conjunctivae: conjunctivae normal Sclerae: sclerae normal Pupils: Equal, round and reactive pupils present EOM: EOMs intact bilaterally Direct Ophthalmoscopy: No no photophobia Neck Neck: Yes no lymphadenopathy and Yes no JVD Thyroid: Thyroid normal Carotids: no bruits Chest Chest palpation & inspection: no tenderness Resp Effort & Inspection: normal respiratory effort and not tachypneic Auscultation: no crackles, no rales, no rhonchi and no wheezes Cardio Jugular venous distension: no JVD Rate: regular rate Rhythm: regular rhythm Heart sounds: no murmurs and normal S1 and S2 Bruits: no carotid bruits Peripheral pulses: Peripheral pulses 2+ throughout GI Inspection: Yes normal to inspection, No abdominal wall ecchymosis and No visible herniation Palpation (GI): Soft to palpation, nontender, no hepatomegaly and no splenomegaly Auscultation: normal bowel sounds General: Yes no CVA tenderness Back/Spine/Pelvis Back: no CVA tenderness and No back tenderness Cervical Spine: cervical ROM normal Thoracic/Lumbar Spine: thoracic and lumbar spine normal to inspection, straight leg raise negative bilaterally, No thoraco-lumbar ROM limited and No lumbar spinal tenderness Skin General skin exam: no rashes or lesions noted and dry skin Lesions: no lesions Rashes: no rashes Wounds: no wounds Neuro General: oriented to person, oriented to place and oriented to time Cranial nerves: Yes Equal, round and reactive pupils present Cognition (Neuro): normal cognition Speech: No Abnormal speech present Gait exam (Neuro): Normal gait present Motor exam (neuro): no tremor noted Extrem Right upper extremity: full ROM Left upper extremity: full ROM Right lower extremity: full ROM; no edema Left lower extremity: full ROM; no edema Psych Appearance: grossly normal Mental Status: mental status grossly normal Speech and movement: Normal speech and movement present Affect: normal affect Attitude: cooperative Thought process: Normal thought process present Assessment and Plan Assessment & Plan (1) PMR (polymyalgia rheumatica): Code(s): M35.3 - Polymyalgia rheumatica Plan: Continues to bilateral shoulder and clavicle pain with decreased range of motion. Does have intermittent debilitating bilateral hip pain. When on prednisone 10 her 5 mg his joint pains completely resolved. He does report prednisone 2.5 mg were effective for him. Reported no side effects. Have not been too effective. 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 Does use nonsteroidal anti-inflammatory at times though Will restart prednisone 2.5 mg for the next 4 weeks (2) Low libido: Code(s): R68.82 - Decreased libido Plan: Does report having some low libido and difficulty gaining muscle mass. He would like to have his testosterone checked. (3) Bilateral hip pain: Code(s): M25.551 - Pain in right hip; M25.552 - Pain in left hip Plan: Patient does report intermittent debilitating bilateral hip pain. Will get x-rays of bilateral hips to eval for significant arthritis. Orders: Orders XR hip LT 1V Today M25.551 - Pain in right hip, M25.552 - Pain in left hip XR hip RT 1V Today M25.551 - Pain in right hip, M25.552 - Pain in left hip Testosterone, Free/Total Today R68.82 - Decreased libido Medications: New prednisone 2.5 mg PO DAILY 30 days 30 tabs 1RF M35.3 - Polymyalgia rheumatica Coding Level of Care Code Est Pt Level 4 (84808) Diagnoses PMR (polymyalgia rheumatica) M35.3 Low libido R68.82 Bilateral hip pain M25.551; M25.552
[2024-05-13 09:49] VITALS: BP 138/86; PULSE 50; O2SAT 97; BMI 32.5
== END 2024-05-13 12:38 | disposition home or self-care (01) ==
PROVIDERS: PCP Physician Assistant; Visit Provider Physician Assistant
DX: M35.3 Polymyalgia rheumatica (principal); R68.82 Decreased libido; M25.551 Pain in right hip; M25.552 Pain in left hip
CPT/HCPCS: 99214

== ENCOUNTER 2024-06-13 17:07 | Outpatient (REF) | payer OTHER, SELFPAY ==
[2024-06-13 18:11] LABS: CDiff Gene PCR NEGATIVE (Negative)
== END 2024-06-13 17:08 | disposition home or self-care (01) ==
LOC: HO.LNP 17:07
PROVIDERS: Visit Provider Physician Assistant
DX: R19.7 Diarrhea, unspecified (principal)
CPT/HCPCS: 87493

== ENCOUNTER 2024-07-08 14:08 | Outpatient (REF) | payer OTHER, SELFPAY ==
[2024-07-08 15:01] LABS: Hematocrit 47.4 % (42.0-52.0); Hemoglobin 16.3 g/dl (14.0-18.0); Mean Corpuscular HGB Conc 34.4 g/dl (31.0-36.0); Mean Corpuscular Hemoglobin 30.2 pg (27.0-33.0); Mean Corpuscular Volume 87.9 fL (80.0-98.0); Mean Platelet Volume 10.3 fL (9.4-12.4); Platelet Count 223 X10*3/uL (160-400); Red Blood Count 5.39 X10*6/uL (4.60-5.80); Red Cell Distribution Width 13.2 % (11.0-16.0); White Blood Count 10.1 X10*3/uL (4.8-10.8)
[2024-07-08 15:39] LABS: Alanine Aminotransferase 21 U/L (0-40); Albumin Level 4.1 g/dL (3.5-5.0); Alkaline Phosphatase 89 U/L (39-117); Anion Gap 9 (12-20); Aspartate Amino Transferase 21 U/L (5-37); Bilirubin Total 0.6 mg/dL (0.0-1.0); Blood Urea Nitrogen 13 mg/dL (9-16); Calcium 9.9 mg/dL (8.4-10.2); Carbon Dioxide 31 mmol/L (22-29); Chloride 105 mmol/L (96-108); Cholesterol 214 mg/dL (<200); Estimated Glomerular Filt Rate > 60; Glucose Fasting 96 mg/dL (60-99); HDL Cholesterol 46 mg/dL (>40); LDL Cholesterol Calculated 140 mg/dL (<100); Potassium 4.2 mmol/L (3.3-5.1); Sodium 141 mmol/L (135-145); Total Protein 7.2 g/dL (6.5-8.0); Triglycerides 143 mg/dL (<150)
[2024-07-08 15:55] LABS: Erythrocyte Sedimentation Rate 12 MM/HR (0-15)
[2024-07-08 16:42] LABS: Creatinine Urine 169.08 mg/dL; Microalbum/Creatinine Ratio Ur 15.9 ug/mg cr (<30)
[2024-07-14 13:53] LABS: Testosterone, Total 800 ng/dL (250-1100)
== END 2024-07-08 14:09 | disposition home or self-care (01) ==
LOC: HO.LAB 14:08
PROVIDERS: PCP Physician Assistant; Visit Provider Physician Assistant
DX: I10 Essential (primary) hypertension (principal); E78.9 Disorder of lipoprotein metabolism, unspecified; Z12.5 Encounter for screening for malignant neoplasm of prostate; M35.3 Polymyalgia rheumatica; R68.82 Decreased libido
CPT/HCPCS: 36415; 80053; 80061; 82043; 82570; 84153; 84402; 84403; 85027; 85652

== ENCOUNTER 2024-07-11 07:59 | Outpatient (AMB) | payer OTHER, SELFPAY ==
[2024-07-11 08:04] VITALS: BP 154/98; BMI 31.6
--- NOTE | 2024-07-11 08:04 | A.OFFPC_ITS ---
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: No Accompanied by: Self / Same As Patient Allergies No Known Allergies [No Known Allergies*] Allergy (Verified 07/11/24 08:10) Medication List - Last Reconciled 07/11/24 by Lucas Andino PA-C hydrochlorothiazide 12.5 mg PO QAM metoprolol succinate ER 100 mg PO DAILY trazodone 100 mg PO BEDTIME PRN Tobacco use date assessed: 12/20/23 Dental Screening Dental Screen Date: 07/11/24 Did you have a dental visit in the last 12 months?: No Did you have a dental problem in the last 6 months where you did not have access to dental care?: No Was dental information given to patient?: Patient has dentist HPI Annual Exam HPI Details Patient is a 64-year-old male here today for a routine annual physical. Patient's past medical history significant for obstructive sleep apnea, insomnia, borderline high cholesterol and hypertension. Concern--> reports having low libido and fatigue to which he attributes to his sleeping issues. He would like to have his testosterone checked. Testosterone testing results pending. He also reports having some trouble sleeping to which he attributes to his insomnia. .. Hypertension: Blood pressure elevated today in office. He admits to eating more salt in his diet. Denies any headaches, vision issues or chest discomfort. .. Obstructive sleep apnea: Followed by pulmonology, does use a CPAP machine on a nightly basis with good effect. Polyarthralgia (? PMR) : Has been on low-dose of prednisone over last several months, has recently discontinued prednisone 2.5 mg and reports his shoulder pains have resolved. Colon cancer screening: Needs colonoscopy-done at age 53 normal-has been referred to GI will call to schedule appointment with gastro Vaccines: Up-to-date with COVID vaccine, flu vaccine and tdap, need Shingles , needs PCV Reviewed labs with patient and noted slightly elevated A1c of 5.8 and borderline high cholesterol. Laboratory Tests 07/08/24 07/08/24 14:30 14:38 RBC 5.39 Hgb 16.3 Creatinine 1.10 Cholesterol 214 H LDL Cholesterol, C alc 140 H PSA Screen 2.30 Urine Microalbumin 27.0 PFSH Medical History Insomnia Nocturnal hypoxemia Trigger finger, left index finger RLS (restless legs syndrome) Eczema Surgical History History of lumbar surgery Family History (Updated 07/11/24 @ 08:15 by Lucas Andino PA-C) Father Diabetes Mother Gastric cancer Brother Prostate cancer Family/Other FH: mental illness Sister Cancer Social History (Updated 07/11/24 @ 08:16 by Lucas Andino PA-C) Housing: House Alcohol intake: current Alcohol intake frequency: a few times a month Alcohol type: beer Patient Tobacco Use Status: Former Tobacco user Tobacco use type: Cigarette e-Cigarette/Vaping Use: Never Used Second Hand Smoke Exposure: No service: No Current occupational status: employed Current occupational exposures/hazards: No Cognitive needs: No Hearing needs: No Vision needs: Yes Questionnaire PHQ-9 Over the last 2 weeks, how often have you been bothered by any of the following problems? 1. Little interest or pleasure in doing things: not at all 2. Feeling down, depressed, or hopeless: not at all 3. Trouble falling or staying asleep, or sleeping too much: more than half the days 4. Feeling tired or having little energy: several days 5. Poor appetite or overeating: not at all 6. Feeling bad about yourself - or that you are a failure or have let yourself or your family down: not at all 7. Trouble concentrating on things, such as reading the newspaper or watching television: not at all 8. Moving or speaking so slowly that other people could have noticed. Or the opposite - being so fidgety or restless that you have been moving around a lot more than usual: not at all 9. Thoughts that you would be better off or of hurting yourself in some way: not at all Total score: 3 Depression Screening Interpretation: Positive Depression Screening Follow-up: Existing condition Depression Screening Done: Yes 42663 - PHQ-9 Billing: Yes Source: Developed by Drs. Jeff L. Sonja, Wayne Ramos and colleagues, with an educational zain from [employer]. Thrive Questionnaire Date Thrive assessed: 07/11/24 I am a: Patient What is your living situation today?: I have a steady place to live Within the past 12 months, did the food you bought not last and you didn't have the money to get more?: Never true Within the past 12 months, did you worry whether your food would run out before you got money to buy more?: Never true Do you have trouble paying for medicines?: No Do you have trouble getting transportation to medical appointments?: No Do you have trouble paying your heating and electricity bill?: No Do you have trouble taking care of your child, family member or friend?: No Do you have trouble with day-to-day activities such as bathing, preparing meals, shopping, managing finances, etc.?: No Are you currently unemployed and looking for a job?: No Are you interested in more education?: No Please select the resources that you would like help with: None Currently or been in a relationship where the following occur: No concerns reported THRIVE Score: 0 AUDIT C Alcohol Use Questionnaire (AUDIT-C) 1. How often do you have a drink containing alcohol?: Monthly or less 2. How many drinks containing alcohol do you have on a typical day when you are drinking?: 3 or 4 3. How often do you have six or more drinks on one occasion?: Never Total Score: 2 RISHI-7 AMB Questionnaire RISHI-7 Date RISHI - 7 assessed: 07/11/24 Feeling nervous, anxious, or on edge: 0 = Not at all Not being able to stop or control worryin = Not at all Worrying too much about different things: 0 = Not at all Trouble relaxin = Several days Being so restless that it is hard to sit still: 0 = Not at all Becoming easily annoyed or irritable: 0 = Not at all Feeling afraid as if something awful might happen: 0 = Not at all Total RISHI-7 score (0-4 normal; 5-9 mild; 10-14 moderate; 15-21 severe): 1 Source: Developed by Drs. Jeff Casillas, Wayne Ramos and colleagues, with an educational zain from [employer]. RISHI-7 Assessment Billing RISHI-7 Assessment Tool: RISHI-7 Assessment 70563 Review of Systems Const Denies body aches, Denies chills, Denies excessive sweating, Denies fatigue, Denies fever(s) and Denies headache(s) Eyes Denies blurry vision ENT Denies dysphagia, Denies vertigo, Denies dizziness, Denies headache(s), Denies hearing loss and Denies tinnitus Card Denies chest pain, Denies chest pain with activity, Denies syncope, Denies irregular heart rhythm and Denies dyspnea Resp Denies chest congestion, Denies cough, Denies hemoptysis, Denies dyspnea and Denies wheezing GI Denies abdominal pain, Denies melena, Denies hematochezia, Denies coffee ground emesis, Denies dysphagia, Denies diarrhea, Denies nausea and Denies vomiting Denies difficulty urinating, Denies dysuria, Denies urinary frequency, Denies urinary hesitancy and Denies urinary urgency Musc Denies arthralgias, Denies limited range of motion, Denies muscle cramps and Denies muscle weakness Skin/Breast Denies rash and Denies skin ulcer Neuro Denies Abnormal speech present, Denies confusion, Denies vertigo, Denies dizziness, Denies syncope, Denies headache(s), Denies memory loss and Denies seizure-like activity Psych Denies anxiety, Denies confusion, Denies depression, Denies memory loss, Denies panic attacks and Denies paranoia Endo Denies excessive sweating, Denies fatigue, Denies flushing, Denies polydipsia and Denies polyuria Aller/Immun Denies wheezing Physical exam (Primary Care) Vital Signs: Last Vital Signs BP 150/90 H 07/11/24 08:23 BMI result Body Mass Index 31.6 Tobacco/Smoking Status: Tobacco use Status Tobacco use date assessed 12/20/23 07/11/24 08:09 Patient Tobacco Use Status Former Tobacco user 07/11/24 08:16 Tobacco use type Cigarette 07/11/24 08:16 e-Cigarette/Vaping Use Never Used 07/11/24 08:16 PHQ-9: PHQ-9 Score PHQ-9: Total score 3 07/11/24 08:11 Depression Screening Interpretation: Positive Depression Screening Follow-up: Existing condition Thrive Assessment: Date of Thrive Assessment Date Thrive assessed 07/11/24 07/11/24 08:09 Currently or been in a relationship where the following occur: No concerns reported Const General: cooperative, comfortable, no acute distress, alert and awake; No confusion Orientation/consciousness: oriented to person, oriented to place, patient oriented x3 and No confusion HENMT Head: Yes normocephalic Ears: external ears normal and TM's normal bilaterally Face and sinus: No sinus tenderness Mouth: Normal oral and palatal mucosa present and tongue normal Teeth and gingiva: dentition normal and gingiva normal Throat: Yes posterior oropharynx normal, Yes tonsils normal and Yes uvula midline Eyes Conjunctivae: conjunctivae normal Sclerae: sclerae normal Pupils: Equal, round and reactive pupils present EOM: EOMs intact bilaterally Direct Ophthalmoscopy: No no photophobia Neck Neck: Yes no lymphadenopathy, No tender and Yes no JVD Thyroid: Thyroid normal Carotids: no bruits Chest Chest palpation & inspection: no tenderness Resp Effort & Inspection: normal respiratory effort, no audible wheezes, not labored and no stridor Auscultation: no crackles, no rales, no rhonchi and no wheezes Cardio Jugular venous distension: no JVD Rate: regular rate, not bradycardic and not tachycardic Rhythm: regular rhythm Bruits: no carotid bruits Peripheral pulses: Peripheral pulses 2+ throughout GI Inspection: Yes normal to inspection, No abdominal wall ecchymosis and No visible herniation Palpation (GI): Soft to palpation, nontender, no guarding, not rigid and No hepatosplenomegaly present Auscultation: normoactive bowel sounds General: Yes no CVA tenderness Back/Spine/Pelvis Back: no CVA tenderness and No back tenderness Cervical Spine: cervical ROM normal Thoracic/Lumbar Spine: thoracic and lumbar spine normal to inspection, straight leg raise negative bilaterally, No thoraco-lumbar ROM limited and No lumbar spinal tenderness Skin Lesions: no lesions Rashes: no rashes Wounds: no wounds Neuro General: oriented to person, oriented to place, patient oriented x3, CN's II-XI intact bilaterally and No confusion Cranial nerves: Yes Equal, round and reactive pupils present and Yes Normal accommodation reflex present Cognition (Neuro): normal cognition Speech: No Abnormal speech present Gait exam (Neuro): Normal gait present Motor exam (neuro): 5/5 motor strength present throughout Extrem Right upper extremity: full ROM; no cyanosis Left upper extremity: full ROM; no cyanosis Right lower extremity: no edema Left lower extremity: no edema Psych Appearance: grossly normal Mental Status: mental status grossly normal Affect: normal affect Attitude: cooperative Thought process: Normal thought process present Immunizations pneumoc 20-natali conj-dip cr(PF) 0.5 mL IM syringe Performing Provider: Lucas Andino PA-C 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 Has slowly weaned down to 2.5 mg and now was off of prednisone. He reports his shoulder pains have completely resolved. (3) Low libido: Code(s): R68.82 - Decreased libido Plan: Attributing his low libido to normal aging. Did do testosterone testing in his awaiting pending lab results. (4) HTN (hypertension): Code(s): I10 - Essential (primary) hypertension Qualifiers: Hypertension type: essential hypertension Qualified Code(s): I10 - Essential (primary) hypertension Plan: Blood pressure slightly elevated today in office, does not monitor his blood pre ssure regularly at home. He does report over last few weeks having more salt in his diet as he has been trying to make dietary changes due to his GI issues.. Will not make any changes in his antihypertensive medication at this point and do monitoring at home and will make dietary changes. If consistently above 140/90 will consider starting low-dose lisinopril. Will continue his current dose of antihypertensive medication with goal blood pressure to remain below 140/90 (5) GUS (obstructive sleep apnea): Comment: Patient is confirmed case of obstructive sleep apnea, with mild nocturnal hypoxemia and RLS. His compliance remains suboptimal, main reason being nasal congestion. He tried fullface mask but it did not work for him because he fell somewhat claustrophobic. He is back to using nasal pillows . Plan is to order antihistaminic spray to use before putting on the mask. tx: Azelastin nasal spray 1 spray each nostril at night before putting on the nasal mask. Code(s): G47.33 - Obstructive sleep apnea (adult) (pediatric) Plan: He reports he is compliant with his CPAP machine on a nightly basis. He understands the benefit of using CPAP machine on nightly basis. He feels he may need a high pressure of a CPAP as he feels he is not getting has much benefit. 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 (6) Borderline high cholesterol: Code(s): E78.9 - Disorder of lipoprotein metabolism, unspecified Plan: Patient's most recent fasting lipid panel showing borderline high total cholesterol. He will work on lifestyle modifications to reduce his high cholesterol. Orders: Orders Pneumococcal 20 Immunization Today Z23 - Encounter for immunization Lipid Panel 6 Months E78.9 - Disorder of lipoprotein metabolism, unspecified Microalbumin, Random (w Creat) 6 Months I10 - Essential (primary) hypertension Complete Blood Count no Diff 6 Months I10 - Essential (primary) hypertension Comprehensive [place]. Panel Fast 6 Months I10 - Essential (primary) hypertension Prostate Specific Antigen Scr 6 Months I10 - Essential (primary) hypertension, Z12.5 - Encounter for screening for malignant neoplasm of prostate Patient Instructions: Goal: Blood pressure to be below 140/90 Barriers: Adherence to physical activity and healthy eating habits Coding Level of Care Code Est Pt Prev Care 40-64y(51298) Diagnoses Annual physical exam Z00.00 PMR (polymyalgia rheumatica) M35.3 Low libido R68.82 Essential hypertension I10 Hypertension type: essential hypertension GUS (obstructive sleep apnea) G47.33 Borderline high cholesterol E78.9 Additional Codes RISHI-7 Assessment Billing - RISHI-7 Assessment Tool: RISHI-7 Assessment [id number] ([id number])
[2024-07-11 08:23] VITALS: BP 150/90
== END 2024-07-11 08:48 | disposition home or self-care (01) ==
PROVIDERS: PCP Physician Assistant; Visit Provider Physician Assistant
DX: Z00.00 Encounter for general adult medical examination without abnormal findings (principal); M35.3 Polymyalgia rheumatica; R68.82 Decreased libido; Z23 Encounter for immunization; I10 Essential (primary) hypertension; G47.33 Obstructive sleep apnea (adult) (pediatric); E78.9 Disorder of lipoprotein metabolism, unspecified
CPT/HCPCS: 90471; 90677; 99396

== ENCOUNTER 2024-10-24 13:50 | Outpatient (AMB) | payer OTHER, SELFPAY ==
--- OUTSIDE RECORDS SUMMARY | 2024-10-24 13:53 | XMS_ITS | Patient Health Record ---
Author Organization [facility] Address [address] [place] [address] Care Team Providers Care Division Chair Name Role Phone Lucas Andino Primary Care Provider Unavailab Jeff Jama Unavailable [phone] Endy Wilson Unavailable Unavailable REASON FOR REFERRAL No Information MEDICATIONS Medication SIG (Take, Route, Frequency, Duration) Notes Start Date End Date Status traZODone HCl 50mg A ctive Aleve prn Active Atenolol 25mg Active Suprep Bowel Prep 1 as directed Orally a s directed for 1 dose 02/25/2014 Active Triamcinolone & Emollient prn Active SOCIAL HISTORY Sex Assigned At : Social History Observation Description Sex Assigned At Unknown PROBLEMS Problem Type ICD Code Onset Dates Problem Status W/U Status Risk SNOMED Code Notes Problem Colon cancer screening (V76.51) Active confirmed Colon cancer screening (905852288) Problem Other specified pre-operative examination (V72.83) Active confirmed Pre-surgery evaluation (357238513) PLAN OF TREATMENT Future Test Test Name Order Date COLONOSCOPY 02/25/2014 Next Appt Details Provider Name:Jeff Wang Melanie , 12/24/2024 09:10:00 AM, [address], [address], [place], [address], Insurance Providers Payer Name Payer Address Payer Phone Subscriber Number Group Number Insured Name Patient Relationship to Insured Coverage Start Date Coverage End Date [facility] [address] [place] [id number] Self - patient is the insured MEDICAL (GENERAL) HISTORY Medical History History ICD Code HTN Denies ID,DM,CVA,Lung disease,renal dise ase insomnia Surgical History Surgery Date(Month/Year) Lower back surgery X 2
[2024-10-24 13:54] VITALS: BP 148/80; PULSE 48; O2SAT 96; BMI 32.4
--- NOTE | 2024-10-24 13:54 | A.OFFPC_ITS ---
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 The joint pain involves the shoulders and hips, though the shoulders are more problematic, with episodes of severe pain occurring unpredictably. Shoulder pain is reported to worsen when sleeping on the side, and the patient has identified that stomach sleeping provides some relief despite the inconvenience related to the use of a sleep mask. The patient suspects a historical episode of polymyalgia rheumatica may have contributed to ongoing shoulder issues, as previous imaging revealed moderate degenerative changes suggestive of arthritis. The patient reports chronic sleep disturbances, finding trazodone ineffective and previous use of Ambien (zolpidem) more effective. He mentions that without sufficient sleep, activities become significantly hindered, likening sleep deprivation effects to intoxication. Chronic fatigue impacts the patient?s motivation to exercise, though physical activity previously provided symptomatic relief for shoulder discomfort. Regarding gastrointestinal symptoms, the patient experiences erratic bowel patterns managed with Metamucil and occasional loperamide (Imodium), fearing daily use due to constipation risk. He voices concern about long-lasting gastrointestinal complaints and anticipates further evaluation by a muffle operator. Prostate-related complaints include frequent nocturnal urination with difficulty achieving satisfactory relief when voiding, which subsequently disrupts sleep. Blood test results indicated normal PSA levels, yet symptomatology is suggestive of benign prostatic hyperplasia. Hypertension has been intermittently elevated, with a noted tendency towards high readings despite occasional normal measurements. The patient is currently managed on hydrochlorothiazide and raised concern over potential excessive dietary salt consumption. [facility] Medical History Insomnia Nocturnal hypoxemia Trigger finger, left index finger RLS (restless legs syndrome) Eczema Surgical History History of lumbar surgery Family History Father Diabetes Mother Gastric cancer Brother Prostate cancer Family/Other FH: mental illness Sister Cancer Social History Housing: House Alcohol intake: current Alcohol intake frequency: a few times a month Alcohol type: beer Patient Tobacco Use Status: Former Tobacco user Tobacco use type: Cigarette e-Cigarette/Vaping Use: Never Used Second Hand Smoke Exposure: No service: No Current occupational status: employed Current occupational exposures/hazards: No Cognitive needs: No Hearing needs: No Vision needs: Yes Questionnaire Thrive Questionnaire Date Thrive assessed: 07/11/24 I am a: Patient What is your living situation today?: I have a steady place to live Within the past 12 months, did the food you bought not last and you didn't have the money to get more?: Never true Within the past 12 months, did you worry whether your food would run out before you got money to buy more?: Never true Do you have trouble paying for medicines?: No Do you have trouble getting transportation to medical appointments?: No Do you have trouble paying your heating and electricity bill?: No Do you have trouble taking care of your child, family member or friend?: No Do you have trouble with day-to-day activities such as bathing, preparing meals, shopping, managing finances, etc.?: No Are you currently unemployed and looking for a job?: No Are you interested in more education?: No Please select the resources that you would like help with: None Currently or been in a relationship where the following occur: No concerns reported THRIVE Score: 0 RISHI-7 AMB Questionnaire RISHI-7 Date RISHI - 7 assessed: 07/11/24 Source: Developed by Drs. Jeff Casillas, Tamela Jansen, Wayne Kate and colleagues, with an educational zain from [employer]. Review of Systems Const Denies headache(s) Eyes Denies loss of vision ENT Denies vertigo, Denies dizziness, Denies headache(s) and Denies sore throat Card Denies chest pain, Denies leg edema and Denies lightheadedness Resp Denies cough, Denies hemoptysis and Denies wheezing GI Denies abdominal pain, Denies melena, Denies constipation, Reports diarrhea, Reports loose stools and Denies vomiting Denies dysuria, Denies urinary frequency and Denies urinary urgency Musc Denies arthralgias, Denies joint swelling, Denies numbness and Denies tingling Neuro Denies Abnormal speech present, Denies behavioral changes, Denies vertigo, De nies dizziness, Denies headache(s), Denies loss of vision, Denies memory loss, Denies numbness and Denies tingling Psych Denies anxiety, Denies behavioral changes, Denies depression, Denies memory loss and Denies panic attacks Kodak/Lymph Denies easy bleeding and Denies easy bruising Aller/Immun Denies wheezing Physical exam (Primary Care) Vital Signs: Last Vital Signs Pulse 48 L 10/24/24 13:54 BP 148/80 H 10/24/24 13:54 Pulse Ox 96 10/24/24 13:54 Oxygen Delivery Method Room Air 10/24/24 13:54 BMI result Body Mass Index 32.4 Tobacco/Smoking Status: Tobacco use Status Tobacco use date assessed 12/20/23 10/24/24 13:55 Patient Tobacco Use Status Former Tobacco user 10/24/24 13:55 Tobacco use type Cigarette 10/24/24 13:55 e-Cigarette/Vaping Use Never Used 10/24/24 13:55 Thrive Assessment: Date of Thrive Assessment Date Thrive assessed 07/11/24 10/24/24 13:55 Currently or been in a relationship where the following occur: No concerns reported Const General: healthy appearing, no acute distress, alert and awake Nutritional Appearance: well nourished Orientation/consciousness: oriented to person, oriented to place and oriented to time HENMT Ears: TM's normal bilaterally General nose exam: Normal nasal mucous membranes and turbinates present Eyes Conjunctivae: conjunctivae normal Sclerae: sclerae normal Pupils: Equal, round and reactive pupils present Neck Neck: Yes no lymphadenopathy and Yes no JVD Thyroid: Thyroid normal Carotids: no bruits Resp Effort & Inspection: normal respiratory effort and not tachypneic Auscultation: no crackles, no rales, no rhonchi and no wheezes Cardio Rate: regular rate Rhythm: regular rhythm Heart sounds: no murmurs and normal S1 and S2 GI Palpation (GI): Soft to palpation, nontender, no hepatomegaly and no splenomegaly Auscultation: normal bowel sounds Skin General skin exam: no rashes or lesions noted and dry skin Neuro General: oriented to person, oriented to place and oriented to time Cranial nerves: Yes Equal, round and reactive pupils present Speech: No Abnormal speech present Gait exam (Neuro): Normal gait present Motor exam (neuro): no tremor noted Extrem Right upper extremity: full ROM Left upper extremity: full ROM Right lower extremity: full ROM; no edema Left lower extremity: full ROM; no edema Psych Mental Status: mental status grossly normal Speech and movement: Normal speech and movement present Affect: normal affect Attitude: cooperative Thought process: Normal thought process present Office Procedures Flu Questionnaire Does the patient have a severe egg allergy?: No Immunizations Fluarix Triv [id number] (PF) 45 mcg (15 mcg x 3)/0.5 mL IM syringe Performing Provider: Lucas Andino PA-C [facility] Documented (not given) by: BRENDA Chen on 10/24/24 14:06 Reason Not Given: Patient Refused Coding Level of Care Code Est Pt Level 4 (76600) Diagnoses Primary insomnia F51.01 Insomnia type: primary Diarrhea, unspecified type R19.7 Diarrhea type: unspecified type BPH associated with nocturia N40.1; R35.1 Primary osteoarthritis of both shoulders M19.011; M19.012 Osteoarthritis type: primary Assessment & Plan Assessment & Plan (1) Insomnia: Comment: He continues to had difficulty in falling asleep and maintaining the sleep during night. Trazodone is helping. Does increase to 100 mg at bedtime. Code(s): G47.00 - Insomnia, unspecified Category: Medical Qualifiers: Insomnia type: primary Qualified Code(s): F51.01 - Primary insomnia Plan: As per HPI patient continues to have major issues sleeping which affects his ability to do his job on nights he is not able to sleep. He has tried trazodone though has side effects that are intolerable. He was on zolpidem in the past which did offer him good night sleeps. Will return back to using zolpidem on a as needed basis for sleep. He did need [facility] paperwork filled out today for multiple reasons including his insomnia, has bilateral shoulder issues and his current chronic gastrointestinal issue. (2) Diarrhea: Code(s): R19.7 - Diarrhea, unspecified Category: Medical Qualifiers: Diarrhea type: unspecified type Qualified Code(s): R19.7 - Diarrhea, unspecified Plan: Abdulaziz has been suffering with loose stool and diarrhea over the last 3 months. He reports he is able to control it with Metamucil and loperamide though when he is not using these medications he continues to have loose stool and diarrhea. This causes him not to be able to make it to work or social events due to needing to frequently go to the bathroom. Fortunately has not lost a significant amount of weight or does not have any abdominal pain or blood in stool. He has been set up with GI and has an appointment coming up. He is interested in getting a colonoscopy (3) BPH associated with nocturia: Code(s): N40.1 - Benign prostatic hyperplasia with lower urinary tract symptoms; R35.1 - Nocturia Category: Medical Plan: He does report having nighttime nocturia and weak urinary stream. He has tried to reduce his water intake in the afternoons though has not been effective. Patient's PSAs have been normal. He is willing to try Flomax to help with bladder emptying (4) Osteoarthritis of shoulders, bilateral: Code(s): M19.011 - Primary osteoarthritis, right shoulder; M19.012 - Primary osteoarthritis, left shoulder Category: Medical Qualifiers: Osteoarthritis type: primary Qualified Code(s): M19.011 - Primary osteoarthritis, right shoulder; M19.012 - Primary osteoarthritis, left shoulder Plan: As per HPI patient continues to have bilateral shoulder pain and stiffness that is worse on occasion. He did have an episode of PMR symptoms to which he was on steroids which significantly reduced his upper pectoral girdle pain. He does report NSAIDs have been helpful from time to time to reduce his pain. Orders: Orders Influenza [id number] Immunization 10/24/24 Z23 - Encounter for immunization Medications: New tamsulosin 0.4 mg PO BEDTIME 90 caps 1RF N40.1 - Benign prostatic hyperplasia with lower urinary tract symptoms, R35.1 - Nocturia zolpidem 10 mg PO BEDTIME 14 days PRN 14 tabs 1RF sleep G47.00 - Insomnia, unspecified lisinopril-hydrochlorothiazide 10-12.5 mg 1 tab PO DAILY 90 days 90 tabs 1RF I10 - Essential (primary) hypertension Discontinued hydrochlorothiazide Discontinued Reason: Doctor's Order 12.5 mg PO QAM 90 caps 1RF trazodone Discontinued Reason: Doctor's Order 100 mg PO BEDTIME PRN 90 tabs 3RF for insomnia
== END 2024-10-24 16:28 | disposition home or self-care (01) ==
PROVIDERS: PCP Physician Assistant; Visit Provider Physician Assistant
DX: Z23 Encounter for immunization (principal)

== ENCOUNTER → 2024-10-24 13:50 | Outpatient (BNVA) | payer OTHER, SELFPAY | PROVIDERS: PCP Physician Assistant; Visit Provider Physician Assistant | DX: F51.01 Primary insomnia (principal); R19.7 Diarrhea, unspecified; N40.1 Benign prostatic hyperplasia with lower urinary tract symptoms; R35.1 Nocturia; M19.011 Primary osteoarthritis, right shoulder; M19.012 Primary osteoarthritis, left shoulder; Z79.899 Other long term (current) drug therapy; Z28.21 Immunization not carried out because of patient refusal | CPT/HCPCS: 90471 ==

== ENCOUNTER 2024-11-01 14:35 | Outpatient (AMB) | payer OTHER, SELFPAY ==
--- OUTSIDE RECORDS SUMMARY | 2024-11-01 14:37 | XMS_ITS | Patient Health Record ---
Author Organization [facility] Address [address] [place] [address] Care Team Providers Care Lagging Machine Operator Name Role Phone Lucas Andino Primary Care Provider Unavailab Jeff Jama Unavailable [phone] Endy Wilson Unavailable Unavailable REASON FOR REFERRAL [...] screening (V76.51) Active confirmed Colon cancer screening ([id number]) Problem Other specified pre-operative examination (V72.83) Active confirmed Pre-surgery evaluation ([id number]) PLAN OF TREATMENT Future Test Test Name Order Date COLONOSCOPY 02/25/2014 Next Appt Details Provider Name:Jeff Wang Melanie , 12/24/2024 09:10:00 AM, [address], [address], [place], [address], Insurance Providers Payer Name Payer Address Payer Phone Subscriber Number Group Number Insured Name Patient Relationship to Insured Coverage Start Date Coverage End Date [facility] [address] [place] [id number] Self - patient is the insured MEDICAL (GENERAL) HISTORY Medical History History ICD Code HTN Denies ID,DM,CVA,Lung disease,renal dise ase insomnia Surgical History Surgery Date(Month/Year) Lower back surgery X 2
[2024-11-01 14:39] VITALS: BP 134/80; PULSE 62; O2SAT 96; BMI 32.9
--- NOTE | 2024-11-01 14:39 | A.OFFVIS_ITS ---
Vital Signs 11/01/24 14:39 Height 5 ft 9 in Weight 223 lb 1.725 oz BMI 32.9 BP 134/80 Blood Pressure Location Rt brachial Position Sitting Pulse 62 Pulse Source Pulse Oximeter Pulse Oximetry (%) 96 Oxygen Delivery Method Room Air Intake Visit Reasons: GERD w/o esophagitis Intake Note: NEW PATIENT Abdulaziz presents in office today for a scheduled colo scrn Prior hx of colo/egd? 2013 w/ Dr. Navarro. Pt never seen after that appt. PT wants to see our office. Unable to get appt with [facility] Meds and Allergies reviewed? Y Any significant concerns or questions? Frequent loose stools. GI Upset Pharmacy verified? [facility] Allergies No Known Allergies [No Known Allergies*] Allergy (Verified 11/01/24 14:41) HPI HPI GERD w/o esophagitis: Details: 64-year-old male with past medical history of osteoarthritis of bilateral shoulders, BPH, GERD, polymyalgia rheumatica, insomnia, rhinitis, GUS, hypertension is here today for initial consultation. Patient was sent to us by his PCP for colonoscopy. Patient had last colonoscopy in 2013, performed by Dr. Navarro. Patient did not follow-up after that procedure. Patient reports long and ongoing symptoms of loose stools. On and off taking fiber and loperamide. Feels like loperamide is making him bloated and he will have constipation. Patient denies any issues with anesthesia in the past. History of sleep apnea. Not on any anticoagulation medication. Patient denies melena, hematochezia, unintentional weight loss or ribbon like stools. Denies any cardiac or respiratory symptoms. [facility] Medical History (Updated 11/01/24 @ 15:19 by Anne Chahal [facility]) Insomnia Nocturnal hypoxemia Trigger finger, left index finger RLS (restless legs syndrome) Eczema Surgical History (Updated 11/01/24 @ 14:41 by BRENDA Traylor) History of colonoscopy (~2013) History of lumbar surgery Family History Father Diabetes Mother Gastric cancer Brother Prostate cancer Family/Other FH: mental illness Sister Cancer Social History Housing: House Alcohol intake: current Alcohol intake frequency: a few times a month Alcohol type: beer Patient Tobacco Use Status: Former Tobacco user Tobacco use type: Cigarette e-Cigarette/Vaping Use: Never Used Second Hand Smoke Exposure: No service: No Current occupational status: employed Current occupational exposures/hazards: No Cognitive needs: No Hearing needs: No Vision needs: Yes Review of Systems Const Denies weight gain and Denies weight loss ENT Reports no additional complaints, Denies dysphagia and Denies odynophagia Card Reports no additional complaints Resp Reports no additional complaints GI Reports abdominal pain, Denies belching, Denies melena, Reports bloating, Denies change in bowel habits, Denies dysphagia, Denies excessive flatus, Denies dyspepsia, Reports heartburn, Denies diarrhea, Reports loose stools, Denies nausea, Denies odynophagia and Denies vomiting Reports no additional complaints Musc Reports no additional complaints Neuro Reports no additional complaints Psych Reports no additional complaints Endo Reports no additional complaints Physical Exam Vital Signs: Last Vital Signs Pulse 62 11/01/24 14:39 BP 134/80 11/01/24 14:39 Pulse Ox 96 11/01/24 14:39 Oxygen Delivery Method Room Air 11/01/24 14:39 BMI result Body Mass Index 32.9 Const General: healthy appearing and no acute distress Nutritional Appearance: obese Orientation/consciousness: patient oriented x3 Resp Effort & Inspection: normal respiratory effort, able to speak in complete sentences, no tracheal deviation and symmetric chest movement Auscultation: clear to auscultation bilaterally Cardio Rate: regular rate GI Inspection: Yes normal to inspection and No distended Palpation (GI): Soft to palpation, not firm, nontender and No hepatosplenomegaly present Auscultation: normal bowel sounds General: Yes no CVA tenderness Back/Spine/Pelvis Back: no CVA tenderness Skin General skin exam: elasticity normal, turgor normal and dry skin Neuro General: patient oriented x3 Psych Appearance: grossly normal Mental Status: mental status grossly normal Assessment & Plan Assessment & Plan (1) Abdominal bloating: Code(s): R14.0 - Abdominal distension (gaseous) Category: Medical (2) Diarrhea: Code(s): R19.7 - Diarrhea, unspecified Category: Medical Qualifiers: Diarrhea type: unspecified type Qualified Code(s): R19.7 - Diarrhea, unspecified (3) GERD (gastroesophageal reflux disease): Code(s): K21.9 - Gastro-esophageal reflux disease without esophagitis Category: Medical Qualifiers: Esophagitis presence: esophagitis presence not specified Qualified Code(s): K21.9 - Gastro-esophageal reflux disease without esophagitis (4) Constipation: Code(s): K59.00 - Constipation, unspecified Category: Medical Qualifiers: Constipation type: slow transit constipation Qualified Code(s): K59.01 - Slow transit constipation (5) Colon cancer screening: Code(s): Z12.11 - Encounter for screening for malignant neoplasm of colon Category: Medical Plan On and off diarrhea. Patient reports that it is not related to food. Patient usually gets abdominal cramping bloating and then urge to have a bowel movement. Usually his bowels are loose. Uses Metamucil from time to time and on and off loperamide to control his stools. Patient reports that loperamide is making him feel bloated. Patient admits that he is not eating fiber. He will try Benefiber with probiotics instead to see if that might help. Lab work ordered to rule out malabsorption, stool: GI panel, ova parasite, fecal fat. Will andreas ck CRP to see if inflammatory changes if so we will order fecal calprotectin. Patient will be sent for colonoscopy as he is due. Last colonoscopy was in May of [address] Navarro. Normal colonoscopy then, diverticulosis and hemorrhoids seen. No polyps found. Patient denies any cardiac or respiratory symptoms.? Denies any issues with anesthesia in the past.? History of sleep apnea, uses CPAP occasionally. No history infectious diseases in the past or present.? Not on any anticoagulation therapy.? No family or personal history of colon cancer or polyps.? Patient denies melena, hematochezia, unintentional weight loss or ribbon like stools.? Discussed at length the pre-procedure,? prep, diet & medications as well as what to expect prior, during and after the procedure.?? Stressed the importance of good bowel prep.? Recommended the use of Vaseline or Calmoseptine OTC & baby wipes with bowel movements to promote comfort.? ?Patient verbalizes understanding and agrees to plan of care.? He was given the opportunity to ask questions and all questions answered.? We will see him after the procedure.? Orders: Orders GI Panel 11/01/24 R19.7 - Diarrhea, unspecified TSH reflex Free T4 11/01/24 K59.00 - Constipation, unspecified Vitamin B12 and Folate 11/01/24 R19.7 - Diarrhea, unspecified Magnesium 11/01/24 N18.9 - Chronic kidney disease, unspecified C Reactive Protein 11/01/24 K58.9 - Irritable bowel syndrome, unspecified Vitamin D 25-OH (D2 and D3) 11/01/24 E55.9 - Vitamin D deficiency, unspecified Ova and Parasite 11/01/24 R19.7 - Diarrhea, unspecified Fecal Fat Qualitative 11/01/24 R19.7 - Diarrhea, unspecified Medications: New bisacodyl (Dulcolax (bisacodyl)) take 4 tabs at noon the day before your colonoscopy 20 mg (4 x 5 mg) PO ONCE 4 tabs 0RF 1 day Z12.11 - Encounter for screening for malignant neoplasm of colon polyethylene glycol 3350 (Miralax) As directed by gastroenterology department at [facility] 238 grams PO ONCE 238 grams 0RF Z12.11 - Encounter for screening for malignant neoplasm of colon Coding Level of Care Code New Pt Level 4 (92515) Diagnoses Abdominal bloating R14.0 Diarrhea, unspecified type R19.7 Diarrhea type: unspecified type Gastroesophageal reflux disease, unspecified whether esophagitis present K21.9 Esophagitis presence: esophagitis presence not specified Slow transit constipation K59.01 Constipation type: slow transit constipation Colon cancer screening Z12.11 Time Spent (min) 45 Comment 30 minutes spent with patient and additional 15 minutes spent reviewing his records
== END 2024-11-01 16:23 | disposition home or self-care (01) ==
PROVIDERS: PCP Physician Assistant; Visit Provider Nurse Practitioner Family
DX: R19.7 Diarrhea, unspecified (principal); K21.9 Gastro-esophageal reflux disease without esophagitis; K59.01 Slow transit constipation; Z12.11 Encounter for screening for malignant neoplasm of colon
CPT/HCPCS: 99204

== ENCOUNTER 2024-11-01 14:35 | Outpatient (REF) | payer OTHER, SELFPAY ==
[2024-11-01 16:34] LABS: C Reactive Protein 4.21 mg/dL (< or = 0.50); Magnesium 2.1 mg/dL (1.6-2.6)
[2024-11-01 16:50] LABS: TSH reflex Free T4 2.97 uIU/mL (0.32-4.0)
[2024-11-01 17:03] LABS: Folate 9.1 ng/mL (> or = 4.0); Vitamin B12 573 pg/mL (200-900)
[2024-11-06 15:19] LABS: Vitamin D 25-OH, D2 <4 ng/mL; Vitamin D 25-OH, D3 10 ng/mL; Vitamin D 25-OH, Total 10 ng/mL (30-100)
== END 2024-11-01 14:36 | disposition home or self-care (01) ==
LOC: HO.LAB 14:35
PROVIDERS: PCP Physician Assistant; Visit Provider Nurse Practitioner Family
DX: R19.7 Diarrhea, unspecified (principal); K59.00 Constipation, unspecified; N18.9 Chronic kidney disease, unspecified; K58.9 Irritable bowel syndrome, unspecified; E55.9 Vitamin D deficiency, unspecified
CPT/HCPCS: 36415; 82306; 82607; 82746; 83735; 84443; 86140

== ENCOUNTER 2024-11-09 11:37 | Outpatient (REF) | payer OTHER, SELFPAY ==
[2024-11-09 15:24] LABS: Adenovirus F 40/41 Not Detected (Not Detect.); Astrovirus Not Detected (Not Detect.); Campylobacter Not Detected (Not Detect.); Cryptosporidium Not Detected (Not Detect.); Cyclospora cayetanensis Not Detected (Not Detect.); E. coli EAEC Not Detected (Not Detect.); E. coli EPEC Not Detected (Not Detect.); E. coli ETEC Not Detected (Not Detect.); E. coli STEC Not Detected (Not Detect.); Entamoeba histolytica Not Detected (Not Detect.); Giardia lamblia Not Detected (Not Detect.); Norovirus GI/GII Not Detected (Not Detect.); Plesiomonas shigelloides Not Detected (Not Detect.); Rotavirus A Not Detected (Not Detect.); Salmonella Not Detected (Not Detect.); Sapovirus Not Detected (Not Detect.); Shigella sp./EIEC Not Detected (Not Detect.); Vibrio Not Detected (Not Detect.); Vibrio Cholerae Not Detected (Not Detect.); Yersinia enterocolitica Not Detected (Not Detect.)
[2024-11-12 14:28] LABS: Fecal Fat Qualitative Abnormal (Normal)
[2024-11-15 20:04] LABS: Calprotectin, Fecal 11 mcg/g
== END 2024-11-09 11:38 | disposition home or self-care (01) ==
LOC: HO.LNP 11:37
PROVIDERS: Visit Provider Nurse Practitioner Family
DX: R15.9 Full incontinence of feces (principal); R19.7 Diarrhea, unspecified
CPT/HCPCS: 82705; 83993; 87177; 87209; 87507

== ENCOUNTER 2024-12-11 08:37 | Outpatient (AMB) | payer OTHER, SELFPAY ==
--- NOTE | 2024-12-11 08:38 | MHC.OFFVIS ---
Vital Signs 12/11/24 08:48 Height 5 ft 9 in Weight 220 lb 14.451 oz BMI 32.6 BP 144/82 H Blood Pressure Location Rt brachial Position Sitting Pulse 66 Pulse Source Pulse Oximeter Pulse Oximetry (%) 97 Oxygen Delivery Method Room Air Intake Visit Reasons: 1 mos FUV. Intake Note: ESTABLISHED PATIENT for Abd bloating mgmt. Labs done. Motley rescheduled due to pt illness (Flu) Chief Complaint; Abd discomfort, diarrhea, moderate reflux dependent on diet and lifestyle. Pt has been making adjustments which has been helpful in reduction of sx. Licensed Mortician Required: No Accompanied by: Self / Same As Patient Allergies No Known Allergies [No Known Allergies*] Allergy (Verified 12/11/24 08:39) HPI HPI 1 mos FUV.: Details: LAST VISIT Abdominal bloating Diarrhea GERD (gastroesophageal reflux disease) Constipation Colon cancer screening Plan On and off diarrhea. Patient reports that it is not related to food. Patient usually gets abdominal cramping bloating and then urge to have a bowel movement. Usually his bowels are loose. Uses Metamucil from time to time and on and off loperamide to control his stools. Patient reports that loperamide is making him feel bloated. Patient admits that he is not eating fiber. He will try Benefiber with probiotics instead to see if that might help. Lab work ordered to rule out malabsorption, stool: GI panel, ova parasite, fecal fat. Will check CRP to see if inflammatory changes if so we will order fecal calprotectin. Patient will be sent for colonoscopy as he is due. Last colonoscopy was in May of [address] Navarro. Normal colonoscopy then, diverticulosis and hemorrhoids seen. No polyps found. Patient denies any cardiac or respiratory symptoms.? Denies any issues with anesthesia in the past.? History of sleep apnea, uses CPAP occasionally. No history infectious diseases in the past or present.? Not on any anticoagulation therapy.? No family or personal history of colon cancer or polyps.? Patient denies melena, hematochezia, unintentional weight loss or ribbon like stools.? Discussed at length the pre-procedure,? prep, diet & medications as well as what to expect prior, during and after the procedure.?? Stressed the importance of good bowel prep.? Recommended the use of Vaseline or Calmoseptine OTC & baby wipes with bowel movements to promote comfort.? ?Patient verbalizes understanding and agrees to plan of care.? He was given the opportunity to ask questions and all questions answered.? We will see him after the procedure.? Orders Orders GI Panel 11/01/24 R19.7 TSH reflex Free T4 11/01/24 K59.00 Vitamin B12 and Folate 11/01/24 R19.7 Magnesium 11/01/24 N18.9 C Reactive Protein 11/01/24 K58.9 Vitamin D 25-OH (D2 and D3) 11/01/24 E55.9 Ova and Parasite 11/01/24 R19.7 Fecal Fat Qualitative 11/01/24 R19.7 Medications New bisacodyl (Dulcolax (bisacodyl)) take 4 tabs at noon the day before your colonoscopy 20 mg (4 x 5 mg) PO ONCE 4 tabs 0RF 1 day Z12.11 polyethylene glycol 3350 (Miralax) As directed by gastroenterology department at [facility] 238 grams PO ONCE 238 grams 0RF Z12.11 TODAY'S VISIT Patient is here today for follow-up and to discuss lab and stool study results. Patient reports that he is feeling better, trying to adjust his diet. Trying to stay away from lactose and certain food. Patient does admit that he eats high fat food. Lots of red meat. Currently is using Metamucil and noticed that his stools are more booked up. Patient will be sent to go for upper endoscopy and colonoscopy. Missed his last procedure as he had flu. Procedure scheduled for January. Patient has his prep at home and instructions and is aware of what he needs to do. Labs and stool studies discussed with patient. Positive fecal fat, elevated CRP and normal stool calprotectin. Patient had also low vitamin D level which we recommended supplement. Patient reports that he has been taking daily. Patient denies any melena, hematochezia. Reports that his symptoms of acid reflux are suppressed for the most part. Occasional epigastric pain depending on what he eats and occasional abdominal bloating. [facility], LAT[facility] Medical History Insomnia Nocturnal hypoxemia Trigger finger, left index finger RLS (restless legs syndrome) Eczema Surgical History History of colonoscopy (~2013) History of lumbar surgery Family History Father Diabetes Mother Gastric cancer Brother Prostate cancer Family/Other FH: mental illness Sister Cancer Social History Housing: House Alcohol intake: current Alcohol intake frequency: a few times a month Alcohol type: beer Patient Tobacco Use Status: Former Tobacco user Tobacco use type: Cigarette e-Cigarette/Vaping Use: Never Used Second Hand Smoke Exposure: No service: No Current occupational status: employed Current occupational exposures/hazards: No Cognitive needs: No Hearing needs: No Vision needs: Yes Review of Systems Const Denies weight gain and Denies weight loss ENT Reports no additional complaints, Denies dysphagia and Denies odynophagia Card Reports no additional complaints Resp Reports no additional complaints GI Reports abdominal pain, Denies belching, Denies melena, Reports bloating, Denies change in bowel habits, Denies dysphagia, Denies excessive flatus, Denies dyspepsia, Reports heartburn, Denies diarrhea, Reports loose stools, Denies nausea, Denies odynophagia and Denies vomiting Reports no additional complaints Musc Reports no additional complaints Neuro Reports no additional complaints Psych Reports no additional complaints Endo Reports no additional complaints Physical Exam Vital Signs: Last Vital Signs Pulse 66 12/11/24 08:48 BP 144/82 H 12/11/24 08:48 Pulse Ox 97 12/11/24 08:48 Oxygen Delivery Method Room Air 12/11/24 08:48 BMI result Body Mass Index 32.6 Const General: healthy appearing and no acute distress Nutritional Appearance: obese Orientation/consciousness: patient oriented x3 Resp Effort & Inspection: normal respiratory effort, able to speak in complete sentences, no tracheal deviation and symmetric chest movement Auscultation: clear to auscultation bilaterally Cardio Rate: regular rate GI Inspection: Yes normal to inspection and No distended Palpation (GI): Soft to palpation, not firm, nontender and No hepatosplenomegaly present Auscultation: normal bowel sounds General: Yes no CVA tenderness Back/Spine/Pelvis Back: no CVA tenderness Skin General skin exam: elasticity normal, turgor normal and dry skin Neuro General: patient oriented x3 Psych Appearance: grossly normal Mental Status: mental status grossly normal Results Reviewed Results Reviewed: Laboratory Tests 11/01/24 11/09/24 15:40 10:00 Magnesium 2.1 C-Reactive Protein 4.21 H Vitamin B12 573 25-OH Vitamin D Total 10 L Folate 9.1 TSH 2.97 Stool Fat, Qual Abnormal A Stool Calprotectin 11 Assessment & Plan Assessment & Plan (1) Abdominal bloating: Code(s): R14.0 - Abdominal distension (gaseous) Category: Medical (2) Diarrhea: Code(s): R19.7 - Diarrhea, unspecified Category: Medical Qualifiers: Diarrhea type: unspecified type Qualified Code(s): R19.7 - Diarrhea, unspecified (3) GERD (gastroesophageal reflux disease): Code(s): K21.9 - Gastro-esophageal reflux disease without esophagitis Category: Medical Qualifiers: Esophagitis presence: esophagitis presence not specified Qualified Code(s): K21.9 - Gastro-esophageal reflux disease without esophagitis (4) Constipation: Code(s): K59.00 - Constipation, unspecified Category: Medical Qualifiers: Constipation type: slow transit constipation Qualified Code(s): K59.01 - Slow transit constipation (5) Colon cancer screening: Code(s): Z12.11 - Encounter for screening for malignant neoplasm of colon Category: Medical Plan We will repeat stool study for fecal fat. Patient reports that he is having less diarrhea. Occasionally once in awhile he will have loose stools. Negative GI panel. Will check for celiac, pancreatic insufficiency. Continue fiber supplement. Patient may use probiotics as well. Follow low FODMAP diet. Discussed with patient what to expect before, during and after the procedure. Upper endoscopy as well. Stressed the importance of good bowel prep and clear liquid diet day before procedure. Patient will be seen after the procedure, sooner on as needed basis. He is agreeable to this plan and verbalizes understanding of instructions. He was given the opportunity to ask questions and all questions answered. Thank you for allowing me to participate in his care Orders: Orders Transglutaminase IgA Today R10.9 - Unspecified abdominal pain Pancreatic Elastase-1 Today R10.9 - Unspecified abdominal pain Fecal Fat Qualitative Today R19.7 - Diarrhea, unspecified Lactoferrin, Fecal, Quant. Today R19.7 - Diarrhea, unspecified Coding Level of Care Code Est Pt Level 4 (06860) Complex EM visit Add On G2211 Diagnoses Abdominal bloating R14.0 Diarrhea, unspecified type R19.7 Diarrhea type: unspecified type Gastroesophageal reflux disease, unspecified whether esophagitis present K21.9 Esophagitis presence: esophagitis presence not specified Slow transit constipation K59.01 Constipation type: slow transit constipation Colon cancer screening Z12.11 Time Spent (min) 40 Comment 25 minutes spent with patient and additional 15 minutes spent reviewing his records
[2024-12-11 08:48] VITALS: BP 144/82; PULSE 66; O2SAT 97; BMI 32.6
== END 2024-12-11 10:49 | disposition home or self-care (01) ==
PROVIDERS: PCP Physician Assistant; Visit Provider Nurse Practitioner Family
DX: R19.7 Diarrhea, unspecified (principal); K21.9 Gastro-esophageal reflux disease without esophagitis; K59.01 Slow transit constipation; Z12.11 Encounter for screening for malignant neoplasm of colon
CPT/HCPCS: 99214

== ENCOUNTER → 2024-12-11 08:37 | Outpatient (BNVA) | payer OTHER, SELFPAY | PROVIDERS: PCP Physician Assistant; Visit Provider Nurse Practitioner Family ==

== ENCOUNTER 2025-01-16 12:27 | Outpatient (REF) | payer OTHER, SELFPAY ==
[2025-01-16 14:35] LABS: Hematocrit 46.1 % (42.0-52.0); Hemoglobin 15.6 g/dl (14.0-18.0); Mean Corpuscular HGB Conc 33.8 g/dl (31.0-36.0); Mean Corpuscular Hemoglobin 29.7 pg (27.0-33.0); Mean Corpuscular Volume 87.6 fL (80.0-98.0); Mean Platelet Volume 10.7 fL (9.4-12.4); Platelet Count 214 X10*3/uL (160-400); Red Blood Count 5.26 X10*6/uL (4.60-5.80); Red Cell Distribution Width 13.5 % (11.0-16.0); White Blood Count 10.5 X10*3/uL (4.8-10.8)
--- OUTSIDE RECORDS SUMMARY | 2025-01-16 14:56 | XMS_ITS ---
Author Organization [facility] Address [address] [place] [address] Care Team Providers Care Art Therapy Specialist Name Role Phone Lucas Andino Primary Care Provider Unavailab Jeff Jama Unavailable [phone] Endy Wilson Unavailable Unavailable Encounters Encounter Location Date Provider Diagnosis [facility] [address] [place] [address] 12/24/2024 Jeff Navarro Plan Of Treatment No Information Progress Notes * BASILIA LOPEZDOB: [birth year] (64 yo M)Acc No.[id number]:12/24/2024 Patient:?BASILIA LOPEZ :1960???Age:64 Y???Sex:Male Address:[address] [place] [address] , [place], [address] * true * Date:? Generated for Viv penn/Chanel/eTransmitting on:?01/16/2025 02:56 PM EST
--- OUTSIDE RECORDS SUMMARY | 2025-01-16 14:56 | XMS_ITS ---
Author Organization [facility] Address [address] [place] [address] Care Team Providers Care Commercial Loan Underwriter Name Role Phone Lucas Andino Primary Care Provider Unavailab Jeff Jama Unavailable [phone] Endy Wilson Unavailable Unavailable REASON FOR VISIT Patient presents today for a colon screening Encounters Encounter Location Date Provider Diagnosis [facility] [address] [facility] [address] [place] [phone] 12/24/2024 Jeff Navarro Plan Of Treatment No Information Progress Notes * BASILIA LOPEZDOB: [birth year] (64 yo M)Acc No.[id number]:12/24/2024 Progress Notes Patient:?BASILIA LOPEZ Provider:?Jeff Navarro MD :1960???Age:64 Y???Sex:Male Mal e:12/24/2024 Address:[address] [place], [place] [phone] Pcp:Lucas Andino Subjective: * Chief Complaints: * ???1. Patient presents today for a colon screening. * Medical History:? Objective: * Vitals:? Assessment: Plan: * Treatment: * * The named appointment provid er may or may not be the originator of this progress note, and it is not deemed complete until electronically signed by the appointment provider. Sign off status: Pending * Provider:?Jeff Navarro MD Date:? 025 Generated for Laurai fili/Chanel/eTransmitting on:?01/16/2025 02:56 PM EST
--- OUTSIDE RECORDS SUMMARY | 2025-01-16 14:56 | XMS_ITS | Patient Health Record ---
Author Organization [facility] Address [address] [place] [address] Care Team Providers Care Legal Administrative Assistant Name Role Phone Lucas Andino Primary Care Provider Unavailab Jeff Jama Unavailable [phone] Endy Wilson Unavailable Unavailable Reason For Referral No Information Medications Medication SIG (Take, Route, Frequency, Duration) Notes Start Date End Date Status traZODone HCl 50mg A ctive Aleve prn Active Atenolol 25mg Active Suprep Bowel Prep 1 as directed Orally a s directed for 1 dose 02/25/2014 Active Triamcinolone & Emollient prn Active Problems Problem Type SNOMED Code ICD Code Onset Dates Problem Status W/U Status Risk Notes Problem Pre-surgery evaluation (380384451) Other specified pre-operative examination (V72.83) Active confirmed Problem Colon cancer screening (778748311) Colon cancer screening (V76.51) Active confirmed Encounters Encounter Location Date Provider Diagnosis [facility] [address] [place] [phone] 12/24/2024 Jeff Navarro Plan Of Treatment Future Test Test Name Order Date COLONOSCOPY 02/25/2014 Insurance Providers Payer Name Payer Address Payer Phone Subscriber Number Group Number Insured Name Patient Relationship to Insured Coverage Start Date Coverage End Date [facility] [address] [place] [id number] Self - patient is the insured Medical (General) History Medical History History ICD Code HTN Denies DE,DM,CVA,Lung disease,renal dise ase insomnia Surgical History Surgery Date(Month/Year) Lower back surgery X 2
[2025-01-16 15:17] LABS: Alanine Aminotransferase 32 U/L (0-40); Alkaline Phosphatase 95 U/L (39-117); Anion Gap 12 (12-20); Aspartate Amino Transferase 32 U/L (5-37); Bilirubin Total 0.5 mg/dL (0.0-1.0); Blood Urea Nitrogen 19 mg/dL (9-16); Calcium 9.5 mg/dL (8.4-10.2); Carbon Dioxide 28 mmol/L (22-29); Chloride 106 mmol/L (96-108); Cholesterol 187 mg/dL (<200); Estimated Glomerular Filt Rate > 60; Glucose Fasting 84 mg/dL (60-99); HDL Cholesterol 42 mg/dL (>40); LDL Cholesterol Calculated 113 mg/dL (<100); Potassium 3.7 mmol/L (3.3-5.1); Sodium 142 mmol/L (135-145); Total Protein 7.5 g/dL (6.5-8.0); Triglycerides 163 mg/dL (<150)
[2025-01-16 15:30] LABS: Prostate Specific Antigen Scr 2.37 ng/mL (<0.05-4.0)
[2025-01-17 21:42] LABS: Transglutaminase IgA <1.0 U/mL
[2025-01-21 15:18] LABS: Fecal Fat Qualitative Abnormal (Normal)
[2025-01-22 18:39] LABS: Pancreatic Elastase-1 735 mcg/g (>200)
[2025-01-22 19:18] LABS: Lactoferrin, Fecal, Quant. <6.25 mcg/mL (<7.25)
== END 2025-01-16 12:28 | disposition home or self-care (01) ==
LOC: HO.LAB 12:27
PROVIDERS: Nurse Practitioner Family; PCP Physician Assistant; Visit Provider Physician Assistant
DX: I10 Essential (primary) hypertension (principal); Z12.5 Encounter for screening for malignant neoplasm of prostate; E78.9 Disorder of lipoprotein metabolism, unspecified; R10.9 Unspecified abdominal pain; R19.7 Diarrhea, unspecified
CPT/HCPCS: 36415; 80053; 80061; 82656; 82705; 83631; 84153; 85027; 86364

== ENCOUNTER 2025-01-30 05:44 | Day surgery (SDC) | payer OTHER, SELFPAY ==
[2025-01-28 08:13] VITALS: BMI 32.5
--- NOTE | 2025-01-29 09:26 | P.CONAN_ITS ---
Documented by User: Miguelina Alcala NP 01/29/25 09:26 HPI - Anesthesia Eval Consult details Narrative: 64yo M for ?Upper Endoscopy and Colonoscopy PMF Active Problems Active Problems: All Active Problems Osteoarthritis of shoulders, bilateral (Acute) BPH associated with nocturia (Acute) Abdominal bloating (Acute) Diarrhea (Acute) GERD (gastroesophageal reflux disease) (Acute) Low libido (Acute) Bilateral hip pain (Acute) Dehydration (Acute) Constipation (Acute) PMR (polymyalgia rheumatica) (Acute) Polyarthralgia (Acute) Bilateral shoulder pain (Acute) Myalgia (Acute) Colon cancer screening (Acute) Annual physical exam (Acute) Insomnia (Acute) Rhinitis (Acute) Obese (Acute) Pulmonary nodule (Acute) Nocturnal hypoxemia (Acute) GUS (obstructive sleep apnea) (Acute) Insomnia (Acute) Borderline high cholesterol (Acute) HTN (hypertension) (Acute) Past Medical History Medical History Insomnia Nocturnal hypoxemia Trigger finger, left index finger RLS (restless legs syndrome) Eczema Family History Family History Father Diabetes Mother Gastric cancer Brother Prostate cancer Family/Other FH: mental illness Sister Cancer Surgical History Surgical History History of colonoscopy (~2013) History of lumbar surgery Social History Social History Housing: House Are you a primary account executive healthcare to a significant other at home: No Do you presently have visiting nurse or other home services: No Alcohol intake: current Alcohol intake frequency: a few times a month Alcohol type: beer Patient Tobacco Use Status: Former Tobacco user Tobacco use type: Cigarette e-Cigarette/Vaping Use: Never Used Second Hand Smoke Exposure: No Substance Use Frequency: Occasionally Have you been hit, kicked, punched, or otherwise hurt by someone within the past year? If so, by whom?: No Are you DNR?: No Advance Directives: No Advance Directives Information Provided: Yes Recently lost weight without trying: No Nutrition Risks: No Nutritional Risk service: No Current occupational status: employed Current occupational exposures/hazards: No Cognitive needs: No Hearing needs: No Vision needs: Yes Meds Allergies Allergy/AdvReac Type Severity Reaction Status Date / Time No Known Allergies Allergy Verified 01/30/25 07:30 [No Known Allergies*] Home Medications ?Medication ?Instructions ?Recorded ?Confirmed ?Last Taken ?Type psyllium husk (with sugar) 3.4 1 tsp PO BID PRN 11/01/24 Unknown History gram/7 gram oral powder (Metamucil (with sugar)) Exam Height,Weight and Vital Signs: Height 5 ft 9 in Weight 99.79 kg Assessment and Plan Assessment Anesthesia Assessment: Chart Reviewed Documented by User: Rachel Hall MD 01/30/25 07:53 PMFSH Past Medical History Medical History Insomnia Nocturnal hypoxemia Trigger finger, left index finger RLS (restless legs syndrome) Eczema Family History Family History Father Diabetes Mother Gastric cancer Brother Prostate cancer Family/Other FH: mental illness Sister Cancer Surgical History Surgical History History of colonoscopy (~2013) History of lumbar surgery History of Problems with Anesthesia: No Social History Social History Housing: House Are you a primary account executive healthcare to a significant other at home: No Do you presently have visiting nurse or other home services: No Alcohol intake: current Alcohol intake frequency: a few times a month Alcohol type: beer Patient Tobacco Use Status: Former Tobacco user Tobacco use type: Cigarette e-Cigarette/Vaping Use: Never Used Second Hand Smoke Exposure: No Substance Use Frequency: Occasionally Have you been hit, kicked, punched, or otherwise hurt by someone within the past year? If so, by whom?: No Are you DNR?: No Advance Directives: No Advance Directives Information Provided: Yes Recently lost weight without trying: No Nutrition Risks: No Nutritional Risk service: No Current occupational status: employed Current occupational exposures/hazards: No Cognitive needs: No Hearing needs: No Vision needs: Yes Meds Allergies Allergy/AdvReac Type Severity Reaction Status Date / Time No Known Allergies Allergy Verified 01/30/25 07:30 [No Known Allergies*] Home Medications ?Medication ?Instructions ?Recorded ?Confirmed ?Last Taken ?Type psyllium husk (with sugar) 3.4 1 tsp PO BID PRN 11/01/24 Unknown History gram/7 gram oral powder (Metamucil (with sugar)) Exam Airway Mallampati Class: III TM Dist: >3cm Neck ROM: Full Loose/Missing/Broken Teeth: No Heart: RRR Lungs: CTA Assessment and Plan Assessment Anesthesia Assessment: Anesthesia Plan Discussed Final Anesthetic Review History of Problems with Anesthesia: No NPO: Yes ASA Class: III Final Preanesthetic Review: Meds/Allgs Chart Reviewed, Consent Obtained/Reviewed and Anes Risks/Benef Reviewed Patient Risk: Intermediate Procedure Risk: Intermediate Anesthetic Plan Anesthetic Plan: MAC: Disposition: Standard PACU
[2025-01-30 07:19] VITALS: BMI 31.4
[2025-01-30] MEDS: Lactated Ringers 1,000 ML 100 ML IVCONT (07:22)
[2025-01-30 07:29] VITALS: BP 132/83; PULSE 74; RESP 18; TEMP 36.8; O2SAT 96
--- NOTE | 2025-01-30 08:02 | P.HPSUR_ITS ---
Pre-Procedural Eval Section A - 24 Hr Update-Section A only Date of Service: 01/30/25 Section B - Complete if H&P > 30 days Chief Complaint: chronic diarrhea Details of Present Illness: Insomnia Nocturnal hypoxemia Trigger finger, left index finger RLS (restless legs syndrome) Eczema Surgical History History of colonoscopy (~2013) History of lumbar surgery Present Medications: see Short Stay Collaborative assessment Allergies: Allergies Allergy/AdvReac Type Severity Reaction Status Date / Time No Known Allergies Allergy Verified 12/11/24 08:39 [No Known Allergies*] Review of Systems Review of Systems Comment: Ten point ROS neg Exam Exam Comment: Gen appear: No acute distress HEENT: no icterus Chest: No overt resp distress Abd: soft, nontender, nondistended Psych: Stable affect, answering questions appropriately Neuro: A/Ox3 noted to move all extremities spontaneously Ext: no peripheral edema Plan Diagnosis/Plan: Unchanged I have reviewed the history and physical and performed a pertinent physical examination on my patient. No changes have occurred unless specified. Time Spent With Patient Time: Total time managing care of this patient today ____ minutes.
[2025-01-30 08:43] VITALS: BP 85/60; PULSE 65; RESP 18; TEMP 36.5; O2SAT 99
[2025-01-30 08:48] VITALS: BP 92/53; PULSE 70; RESP 16; O2SAT 99
--- NOTE | 2025-01-30 08:48 | P.OPN-COLO_ITS ---
Colonoscopy Operative Note Operative Note Date of Service: 01/30/25 Narrative: Procedure: Upper endoscopy and colonoscopy Indication: Abd pain, chronic diarrhea Endoscopist: Karen Tapia MD Anesthesia Provider: Dr Rachel Hall Anesthesia type: MAC Instrument: [id number] and [id number]-[id number] EGD Procedure:?? The procedure, indications, preparation and potential complications were reviewed with the patient, who indicated understanding and gave written informed consent to proceed. The endoscope was introduced through the mouth, and advanced to the 2nd part of the duodenum. The mucosa was carefully examined on slow withdrawal of the endoscope. The patient tolerated the procedure well. There were no immediate complications.? EGD Findings:? * Esophagus:? Normal esophageal mucosa was noted. The Z-line was at 38 cm. * Stomach:? Normal gastric mucosa. Retroflexion was performed in the cardia. Cold forceps biopsies were taken from the body and antrum. * Duodenum:? Normal duodenal mucosa. There was a cluster of polyps in duodenal bulb consistent with alaina's gland hyperplasia. Separate polyp with overlying erythema was noted in D1. Cold forceps biopsies were taken from these polyps as well as from the duodenal bulb and 2nd portion of the duodenum to rule out celiac sprue. Colonoscopy Procedure:? The patient was then turned for the colonoscopy. A digital rectal exam was performed which was normal.? A distal attachment cap was affixed to the tip of the scope and the colonoscope was then inserted through the anus and advanced through the colon and advanced to the cecum at 80 cm and terminal ileum.? Appendiceal orifice and ileocecal valve were identified. Mucosa was carefully examined under high definition white light as the instrument was slowly withdrawn in a retrograde panoramic fashion. Retroflexion was performed in rect um. The procedure was not difficult. The quality of the prep was BBPS: 2+3+2 = adequate Withdrawal time 7 minutes Limitations: No limitations Findings: Mucosa: Normal colon and terminal ileum mucosa. Cold forceps biopsies were taken from the right and left side of the colon. Protruding lesions: * Medium internal hemorrhoids without stigmata of recent bleeding. Impression: 1. Normal esophagus 2. Normal stomach (biopsy) 3. Duodenal polyps (biopsy) 4. Normal duodenum (biopsy) 5. Normal colon and terminal ileum mucosa (biopsy) 6. Internal hemorrhoids Recommendations:?? * Follow-up path results * Consider SIBO testing if path negative for celiac/enteropathy/microscopic coli tis. * Avoid NSAIDs * H Pylori treatment if biopsies + * Repeat colonoscopy for CRC screening in 10 years.
[2025-01-30 08:58] VITALS: BP 113/67; PULSE 64; RESP 16; O2SAT 95
[2025-01-30 09:08] VITALS: BP 124/76; PULSE 65; RESP 16; TEMP 36.2; O2SAT 97
== END 2025-01-30 09:46 | disposition home or self-care (01) ==
PROVIDERS: PCP Physician Assistant; Visit Provider Internal Medicine
PROC: (CPT 45380; principal; 2025-01-30 08:20)
DX: Z12.11 Encounter for screening for malignant neoplasm of colon (principal); K52.9 Noninfective gastroenteritis and colitis, unspecified; K64.8 Other hemorrhoids; R10.9 Unspecified abdominal pain; R14.0 Abdominal distension (gaseous); K31.7 Polyp of stomach and duodenum; K21.9 Gastro-esophageal reflux disease without esophagitis; K59.00 Constipation, unspecified; G25.81 Restless legs syndrome; G47.30 Sleep apnea, unspecified; G47.36 Sleep related hypoventilation in conditions classified elsewhere; L30.9 Dermatitis, unspecified; G47.00 Insomnia, unspecified; Z99.89 Dependence on other enabling machines and devices; Z79.899 Other long term (current) drug therapy
CPT/HCPCS: 45380; 43239; 88305; 88313; 88342; J2003; J2250; J2704

== ENCOUNTER → 2025-01-30 05:44 | Outpatient (BNV) | payer OTHER, SELFPAY | PROVIDERS: PCP Physician Assistant; Visit Provider Internal Medicine | DX: R10.9 Unspecified abdominal pain (principal); K31.7 Polyp of stomach and duodenum; K52.9 Noninfective gastroenteritis and colitis, unspecified; K64.8 Other hemorrhoids | CPT/HCPCS: 43239; 45380 ==

== ENCOUNTER 2025-02-11 08:23 | Outpatient (AMB) | payer OTHER, SELFPAY ==
--- NOTE | 2025-02-11 08:24 | A.OFFVIS_ITS ---
Vital Signs 02/11/25 08:25 Height 5 ft 9 in Weight 220 lb 14.451 oz BMI 32.6 BP 116/68 Blood Pressure Location Rt brachial Position Sitting Pulse 56 Pulse Source Pulse Oximeter Pulse Oximetry (%) 97 Oxygen Delivery Method Room Air Intake Visit Reasons: s/p colo Intake Note: Consider SIBO testing if path negative for celiac/enteropathy/microscopic colitis - Per Dr. Tapia. ESTABLISHED PATIENT for s/p colo. Chief Complaint; C/O diarrhea / loose oily stools despite making dietary changes. Pt reports fiber has been helpful in mgmt of sx but has not resolved. No additional concerns at this time. Sander Wooden Pencils Required: No Accompanied by: Self / Same As Patient Allergies No Known Allergies [No Known Allergies*] Allergy (Verified 02/11/25 08:26) HPI HPI s/p colo: Details: LAST VISIT Abdominal bloating Diarrhea GERD (gastroesophageal reflux disease) Constipation Colon cancer screening Plan We will repeat stool study for fecal fat. Patient reports that he is having less diarrhea. Occasionally once in awhile he will have loose stools. Negative GI panel. Will check for celiac, pancreatic insufficiency. Continue fiber s upplement. Patient may use probiotics as well. Follow low FODMAP diet. Discussed with patient what to expect before, during and after the procedure. Upper endoscopy as well. Stressed the importance of good bowel prep and clear liquid diet day before procedure. Patient will be seen after the procedure, sooner on as needed basis. He is agreeable to this plan and verbalizes understanding of instructions. He was given the opportunity to ask questions and all questions answered. ? Thank you for allowing me to participate in his care Orders Orders Transglutaminase IgA Today R10.9 Pancreatic Elastase-1 Today R10.9 Fecal Fat Qualitative Today R19.7 Lactoferrin, Fecal, Quant. Today R19.7 EGD Findings:? * Esophagus:? Normal esophageal mucosa was noted. The Z-line was at 38 cm. * Stomach:? Normal gastric mucosa. Retroflexion was performed in the cardia. Cold forceps biopsies were taken from the body and antrum. * Duodenum:? Normal duodenal mucosa. There was a cluster of polyps in duodenal bulb consistent with carson's gland hyperplasia. Separate polyp with overlying erythema was noted in D1. Cold forceps biopsies were taken from these polyps as well as from the duodenal bulb and 2nd portion of the duodenum to rule out celiac sprue. Colonoscopy Procedure:? The patient was then turned for the colonoscopy. A digital rectal exam was performed which was normal.? A distal attachment cap was affixed to the tip of the scope and the colonoscope was then inserted through the anus and advanced through the colon and advanced to the cecum at 80 cm and terminal ileum.? Appendiceal orifice and ileocecal valve were identified. Mucosa was carefully examined under high definition white light as the instrument was slowly withdrawn in a retrograde panoramic fashion. Retroflexion was performed in rectum. The procedure was not difficult. The quality of the prep was BBPS: 2+3+2 = adequate Withdrawal time 7 minutes Limitations: No limitations Findings: Mucosa: Normal colon and terminal ileum mucosa. Cold forceps biopsies were taken from the right and left side of the colon. Protruding lesions: * Medium internal hemorrhoids without stigmata of recent bleeding.Impression: 1. Normal esophagus 2. Normal stomach (biopsy) 3. Duodenal polyps (biopsy) 4. Normal duodenum (biopsy) 5. Normal colon and terminal ileum mucosa (biopsy) 6. Internal hemorrhoids Recommendations:?? * Follow-up path results * Consider SIBO testing if path negative for celiac/enteropathy/microscopic colitis. * Avoid NSAIDs * H Pylori treatment if biopsies + * Repeat colonoscopy for CRC screening in 10 years. PATHOLOGY: Diagnosis A. Duodenum, biopsy: Duodenal mucosa within normal limits. B. 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 C. 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 D. Stomach, antrum, biopsy: Antral-type and oxyntic mucosa with mild chronic inactive inflammation; no Helicobacter organisms seen. E. Stomach, body, biopsy: Oxyntic mucosa with mild chronic inactive inflammation; no Helicobacter organisms seen. F. Colon, right, biopsy: Colonic mucosa within normal limits. G. Colon, left, biopsy: Colonic mucosa within normal limits TODAY'S VISIT Patient is here today for follow-up and to discuss upper endoscopy and colonoscopy results. Patient denies any ill effects from the prep, anesthesia or procedure itself. Patient reports that he is doing better in the past 2 weeks, however he is still concerned that he will have loose stools depending on what he eats. Any time he eats anything fatty like red meat or cheeseburger he will have diarrhea. Colonoscopy showed no polyps. No H pylori seen. No celiac. Patient is not digesting fat. Patient denies any mucus or blood in his stools. Patient however reports that since he started taking fiber daily and changed his diet. Patient denies melena, hematochezia, unintentional weight loss or ribbon like stools. Patient denies any mucus in his stool PFSH Medical History Insomnia Nocturnal hypoxemia Trigger finger, left index finger RLS (restless legs syndrome) Eczema Surgical History History of colonoscopy (~2013) History of lumbar surgery Family History Father Diabetes Mother Gastric cancer Brother Prostate cancer Family/Other FH: mental illness Sister Cancer Social History Housing: House Are you a primary senior care provider to a significant other at home: No Do you presently have visiting nurse or other home services: No Alcohol intake: current Alcohol intake frequency: a few times a month Alcohol type: beer Patient Tobacco Use Status: Former Tobacco user Tobacco use type: Cigarette e-Cigarette/Vaping Use: Never Used Second Hand Smoke Exposure: No service: No Current occupational status: employed Current occupational exposures/hazards: No Cognitive needs: No Hearing needs: No Vision needs: Yes Review of Systems Const Denies weight gain and Denies weight loss ENT Reports no additional complaints, Denies dysphagia and Denies odynophagia Card Reports no additional complaints Resp Reports no additional complaints GI Reports abdominal pain, Denies belching, Denies melena, Reports bloating, Denies change in bowel habits, Denies dysphagia, Denies excessive flatus, Denies dyspepsia, Reports heartburn, Denies diarrhea, Reports loose stools, Denies nausea, Denies odynophagia and Denies vomiting Reports no additional complaints Musc Reports no additional complaints Neuro Reports no additional complaints Psych Reports no additional complaints Endo Reports no additional complaints Physical Exam Const General: healthy appearing and no acute distress Nutritional Appearance: obese Orientation/consciousness: patient oriented x3 Resp Effort & Inspection: normal respiratory effort, able to speak in complete s entences, no tracheal deviation and symmetric chest movement Auscultation: clear to auscultation bilaterally Cardio Rate: regular rate GI Inspection: Yes normal to inspection and No distended Palpation (GI): Soft to palpation, not firm, nontender and No hepatosplenomegaly present Auscultation: normal bowel sounds General: Yes no CVA tenderness Back/Spine/Pelvis Back: no CVA tenderness Skin General skin exam: elasticity normal, turgor normal and dry skin Neuro General: patient oriented x3 Psych Appearance: grossly normal Mental Status: mental status grossly normal Results Reviewed Results Reviewed: Laboratory Tests 11/09/24 01/16/25 01/16/25 10:00 12:20 12:53 Total Bilirubin 0.5 AST 32 ALT 32 Alkaline Phosphatase 95 Stool Fat, Qual Abnormal A Abnormal A Stool Calprotectin 11 Stool Lactoferrin <6.25 Stool Pancreat Elastase 735 Tiss Transglutamin IgA <1.0 Assessment & Plan Assessment & Plan (1) Abdominal bloating: Code(s): R14.0 - Abdominal distension (gaseous) Category: Medical (2) Diarrhea: Code(s): R19.7 - Diarrhea, unspecified Category: Medical Qualifiers: Diarrhea type: unspecified type Qualified Code(s): R19.7 - Diarrhea, unspecified (3) GERD (gastroesophageal reflux disease): Code(s): K21.9 - Gastro-esophageal reflux disease without esophagitis Category: Medical Qualifiers: Esophagitis presence: esophagitis presence not specified Qualified Code(s): K21.9 - Gastro-esophageal reflux disease without esophagitis Plan Patient will continue to take fiber daily or twice a day. Seems to be doing better after starting that. Avoids dietary triggers. Low FODMAP diet discussed with patient. We will test for SIBO. Patient reports occasional right upper quadrant pain will send him for ultrasound. Will send him Creon to see that will help with digestion. Follow-up in 4 months, sooner on as needed basis. Patient is agreeable to this plan and verbalizes understanding of instructions. He was given the opportunity to ask questions and all questions answered. Thank you for allowing me to participate in his care Orders: Orders US abdomen complete Today R10.9 - Unspecified abdominal pain Medications: New [id number] 36,000-114,000- 180,000 unit (Creon) administer with meals and/or snacks 2 caps PO TID 90 caps 2RF Coding Level of Care Code Est Pt Level 4 (28254) Diagnoses Abdominal bloating R14.0 Diarrhea, unspecified type R19.7 Diarrhea type: unspecified type Gastroesophageal reflux disease, unspecified whether esophagitis present K21.9 Esophagitis presence: esophagitis presence not specified Time Spent (min) 40 Comment 25 minutes spent with patient and additional 15 minutes spent reviewing his records
[2025-02-11 08:25] VITALS: BP 116/68; PULSE 56; O2SAT 97; BMI 32.6
--- OUTSIDE RECORDS SUMMARY | 2025-02-11 08:39 | XMS_ITS ---
Author Organization [facility] Address [address] [place] [phone] Care Team Providers Care Medical Assistant Internal Medicine Name Role Phone Lucas Andino Primary Care Provider Unavailab Jeff Jama Unavailable [phone] Endy Wilson Unavailable Unavailable Encounters Encounter Location Date Provider Diagnosis [facility] [address] [place] [id number] 12/24/2024 Jeff Navarro Plan Of Treatment No Information Progress Notes * BASILIA LOPEZDOB: [birth year] (64 yo M)Acc No.[id number]:12/24/2024 Patient:?BASILIA LOPEZ :1960???Age:64 Y???Sex:Male Address:[address] [place] [address] , [place], [address] * true * Date:? Generated for Viv penn/Chanel/eTransmitting on:?02/11/2025 08:39 AM EDT
--- OUTSIDE RECORDS SUMMARY | 2025-02-11 08:39 | XMS_ITS ---
Author Organization [facility] Address [address] [place] [phone] Care Team Providers Care Customer Contact Specialist Name Role Phone Lucas Andino Primary Care Provider Unavailab Jeff Jama Unavailable [phone] Endy Wilson Unavailable Unavailable REASON FOR VISIT Patient presents today for a colon screening Encounters Encounter Location Date Provider Diagnosis [facility] [address] [facility] [address] [place] [phone] 12/24/2024 Jeff Navarro Plan Of Treatment No Information Progress Notes * BASILIA LOPEZDOB: [birth year] (64 yo M)Acc No.[id number]:12/24/2024 Progress Notes Patient:?BASILIA LOPEZ Provider:?Jeff Navarro MD :1960???Age:64 Y???Sex:Male Mal e:12/24/2024 Address:[address] [place], [place] [id number] Pcp:Lucas Andino Subjective: * Chief Complaints: * [...] Navarro MD Date:? 025 Generated for Laurai fili/[place]/eTransmitting on:?02/11/2025 08:39 AM EDT
--- OUTSIDE RECORDS SUMMARY | 2025-02-11 08:39 | XMS_ITS | Patient Health Record ---
Author Organization [facility] Address [address] [place] [phone] Care Team Providers Care Bundle Cutter Name Role Phone Lucas Andino Primary Care Provider Unavailab Jeff Jama Unavailable [phone] Endy Wilson Unavailable Unavailable Reason For Referral [...] W/U Status Risk Notes Problem Pre-surgery evaluation (462541365) Other specified pre-operative examination (V72.83) Active confirmed Problem Colon cancer screening (099284469) Colon cancer screening (V76.51) Active confirmed Encounters Encounter Location Date Provider Diagnosis [facility] [address] [place] [phone] 12/24/2024 Jeff Navarro Plan Of Treatment Future Test Test Name Order Date COLONOSCOPY 02/25/2014 Insurance Providers Payer Name Payer Address Payer Phone Subscriber Number Group Number Insured Name Patient Relationship to Insured Coverage Start Date Coverage End Date [facility] [address] [place] [id number] Self - patient is the insured Medical (General) History Medical History History ICD Code HTN Denies [place],DM,CVA,Lung disease,renal dise ase insomnia Surgical History Surgery Date(Month/Year) Lower back surgery X 2
== END 2025-02-11 08:55 | disposition home or self-care (01) ==
LOC: HO.HGI 08:23
PROVIDERS: PCP Physician Assistant; Visit Provider Nurse Practitioner Family
DX: R14.0 Abdominal distension (gaseous) (principal); R19.7 Diarrhea, unspecified; K21.9 Gastro-esophageal reflux disease without esophagitis
CPT/HCPCS: 99214

== ENCOUNTER 2025-03-07 08:43 | Outpatient (REF) | payer OTHER, SELFPAY ==
--- NOTE | ~2025-03-07 | US_ITS ---
EXAMINATION: US ABDOMEN COMPLETE CLINICAL INFORMATION: Unspecified abdominal pain. COMPARISON: CT chest 04/01/2020. TECHNIQUE: Real-time imaging of the abdominal viscera. FINDINGS: PANCREAS: Visualized portions are unremarkable. ABDOMINAL AORTA: The proximal, mid, and distal segments are normal in caliber. INFERIOR VENA CAVA: Visualized portions are normal. LIVER: The liver is normal in size and measures 14.2 cm . The liver contour is normal. Parenchymal echogenicity is normal. No focal hepatic lesion. There is no intrahepatic biliary duct dilatation seen. GALLBLADDER: The gallbladder is physiologically distended without evidence of stones, sludge, polyps, wall thickening or pericholecystic fluid. Gallbladder wall thickness measures 0.26 cm. COMMON BILE DUCT: Normal in caliber measuring 0.43 cm in diameter. RIGHT KIDNEY: No hydronephrosis. No renal calculi or focal parenchymal lesions. The kidney measures 10.0 cm in maximum dimension. There is anechoic cyst in upper pole measuring 1.0 x 0.8 x 0.9 cm and 1.1 x 0.8 x 0.9 cm. LEFT KIDNEY: No hydronephrosis. No renal calculi or focal parenchymal lesions. The kidney measures 12.1 cm in maximum dimension. SPLEEN: The spleen measures 12.4 cm in maximum dimension. FREE FLUID: None. US/US abdomen complete IMPRESSION: Right renal cysts. No echogenic renal calculi or hydronephrosis. Rest of the ultrasound abdomen is unremarkable. Electronically signed by: Geraldo Sierra MD 03/10/2025 09:29 AM EDT
== END 2025-03-07 08:44 | disposition home or self-care (01) ==
LOC: HO.HMGCX 08:43
PROVIDERS: PCP Physician Assistant; Visit Provider Nurse Practitioner Family
DX: R10.9 Unspecified abdominal pain (principal)
CPT/HCPCS: 76700

== ENCOUNTER → 2025-03-07 08:47 | Outpatient (BNV) | payer OTHER, SELFPAY | PROVIDERS: PCP Physician Assistant; Visit Provider Radiology Diagnostic Radiology | DX: N28.1 Cyst of kidney, acquired (principal); R10.9 Unspecified abdominal pain | CPT/HCPCS: 76700 ==

== ENCOUNTER 2025-04-28 08:53 | Outpatient (AMB) | payer OTHER, SELFPAY ==
[2025-04-28 09:06] VITALS: BP 138/72; PULSE 64; TEMP 36.3; O2SAT 94; BMI 31.5
--- NOTE | 2025-04-28 09:06 | MHC.PC.OV ---
Vital Signs 04/28/25 09:06 Height 5 ft 9 in Weight 213 lb 8 oz BMI 31.5 BP 138/72 Blood Pressure Location Lt brachial Position Sitting Pulse 64 Pulse Source Pulse Oximeter Temp 97.3 F Temp Source Temporal Artery Scan Pulse Oximetry (%) 94 Oxygen Delivery Method Room Air Intake Visit Reasons: rashes and stomach pain Pin Or Clip Fastener Required: No Accompanied by: Self / Same As Patient Allergies No Known Allergies [No Known Allergies*] Allergy (Verified 04/28/25 09:17) Medication List - Last Reconciled 04/28/25 by Lucas Andino PA-C cholecalciferol (vitamin D3) 125 mcg PO DAILY kwufha-alofbxcn-enkswli 36,000-114,000- 180,000 unit (Creon) 2 caps PO TID lisinopril-hydrochlorothiazide 10-12.5 mg 1 tab PO DAILY 90 days loperamide 2 mg PO Q8H 15 days metoprolol succinate ER 100 mg PO DAILY rifaximin 550 mg PO TID 2 weeks tamsulosin 0.4 mg PO BEDTIME zolpidem 10 mg PO BEDTIME PRN 14 days Tobacco use date assessed: 04/28/25 Dental Screening Dental Screen Date: 04/28/25 Did you have a dental visit in the last 12 months?: Yes Did you have a dental problem in the last 6 months where you did not have access to dental care?: No Was dental information given to patient?: Patient has dentist HPI rashes and stomach pain HPI Details The patient is a 64-year-old male presenting with a persistent rash on the upper body and elbows. The rash has been present for several months and is characterized by a dry appearance, with both sides of the body affected. The patient has attempted to use liquid bandage and cortisone cream, which may have exacerbated the condition. The patient has a history of Polymyalgia Rheumatica, which is currently well-managed with no significant shoulder discomfort reported. The patient inquires if the rash could be related to an autoimmune condition. The patient reports ongoing gastrointestinal issues, including fat malabsorption, which began after discontinuing prednisone. Extensive testing has been conducted, including stool samples and imaging, with no definitive diagnosis yet. The patient is currently managing symptoms with a low-fat diet, Creon, probiotics, and Metamucil. The patient experiences intermittent locking of the left thumb, which has been previously treated with cortisone injections. The patient requests a referral for further injections due to recurring symptoms. [facility] Medical History Insomnia Nocturnal hypoxemia Trigger finger, left index finger RLS (restless legs syndrome) Eczema Surgical History History of colonoscopy (~2013) History of lumbar surgery Family History Father Diabetes Mother Gastric cancer Brother Prostate cancer Family/Other FH: mental illness Sister Cancer Social History Housing: House Are you a primary healthcare business analyst to a significant other at home: No Do you presently have visiting nurse or other home services: No Alcohol intake: current Alcohol intake frequency: a few times a month Alcohol type: beer Patient Tobacco Use Status: Former Tobacco user Tobacco use type: Cigarette e-Cigarette/Vaping Use: Never Used Second Hand Smoke Exposure: No service: No Current occupational status: employed Current occupational exposures/hazards: No Cognitive needs: No Hearing needs: No Vision needs: Yes Questionnaire PHQ-9 Over the last 2 weeks, how often have you been bothered by any of the following problems? 1. Little interest or pleasure in doing things: not at all 2. Feeling down, depressed, or hopeless: not at all 3. Trouble falling or staying asleep, or sleeping too much: several days 4. Feeling tired or having little energy: several days 5. Poor appetite or overeating: not at all 6. Feeling bad about yourself - or that you are a failure or have let yourself or your family down: not at all 7. Trouble concentrating on things, such as reading the newspaper or watching television: not at all 8. Moving or speaking so slowly that other people could have noticed. Or the opposite - being so fidgety or restless that you have been moving around a lot more than usual: not at all 9. Thoughts that you would be better off or of hurting yourself in some way: not at all Total score: 2 Depression Screening Interpretation: Negative Depression Screening Done: Yes 77918 - PHQ-9 Billing: Yes Source: Developed by Drs. Jeff Casillas, Tamela Jansen, Wayne Kate and colleagues, with an educational zain from [employer]. Thrive Questionnaire Date Thrive assessed: 04/25/25 I am a: Patient What is your living situation today?: I choose not to answer this question Within the past 12 months, did the food you bought not last and you didn't have the money to get more?: I choose not to answer this question Within the past 12 months, did you worry whether your food would run out before you got money to buy more?: I choose not to answer this question Do you have trouble paying for medicines?: I choose not to answer this question Do you have trouble getting transportation to medical appointments?: I choose not to answer this question Do you have trouble paying your heating and electricity bill?: I choose not to answer this question Do you have trouble taking care of your child, family member or friend?: I choose not to answer this question Do you have trouble with day-to-day activities such as bathing, preparing meals, shopping, managing finances, etc.?: I choose not to answer this question Are you currently unemployed and looking for a job?: I choose not to answer this question Are you interested in more education?: I choose not to answer this question Please select the resources that you would like help with: None Currently or been in a relationship where the following occur: I choose not to answer THRIVE Score: 0 AUDIT C Alcohol Use Questionnaire (AUDIT-C) 1. How often do you have a drink containing alcohol?: Never 3. How often do you have six or more drinks on one occasion?: Never Total Score: 0 RISHI-7 AMB Questionnaire RISHI-7 Date RISHI - 7 assessed: 04/28/25 Feeling nervous, anxious, or on edge: 0 = Not at all Not being able to stop or control worryin = Not at all Worrying too much about different things: 0 = Not at all Trouble relaxin = Not at all Being so restless that it is hard to sit still: 0 = Not at all Becoming easily annoyed or irritable: 0 = Not at all Feeling afraid as if something awful might happen: 0 = Not at all Total RISHI-7 score (0-4 normal; 5-9 mild; 10-14 moderate; 15-21 severe): 0 Source: Developed by Drs. Jeff Casillas, Tamela Jansen, Wayne Kate and colleagues, with an educational zain from [employer]. RISHI-7 Assessment Billing RISHI-7 Assessment Tool: RISHI-7 Assessment 28602 Review of Systems Const Denies headache(s) Eyes Denies loss of vision ENT Denies vertigo, Denies dizziness, Denies headache(s) and Denies sore throat Card Denies chest pain, Denies leg edema and Denies lightheadedness Resp Denies cough, Denies hemoptysis and Denies wheezing GI Reports abdominal pain, Denies melena, Denies constipation, Reports GI cramping, Denies diarrhea, Reports loose stools and Denies vomiting Denies dysuria, Denies urinary frequency and Denies urinary urgency Musc Denies arthralgias, Denies joint swelling, Denies numbness and Denies tingling Neuro Denies Abnormal speech present, Denies behavioral changes, Denies vertigo, Denies dizziness, Denies headache(s), Denies loss of vision, Denies memory loss, Denies numbness and Denies tingling Psych Denies anxiety, Denies behavioral changes, Denies depression, Denies memory loss and Denies panic attacks Kodak/Lymph Denies easy bleeding and Denies easy bruising Aller/Immun Denies wheezing Physical exam (Primary Care) Vital Signs: Last Vital Signs Temp 97.3 F 04/28/25 09:06 Pulse 64 04/28/25 09:06 BP 138/72 04/28/25 09:06 Pulse Ox 94 04/28/25 09:06 Oxygen Delivery Method Room Air 04/28/25 09:06 BMI result Body Mass Index 31.5 Tobacco/Smoking Status: Tobacco use Status Tobacco use date assessed 04/28/25 04/28/25 09:10 Patient Tobacco Use Status Former Tobacco user 04/28/25 09:10 Tobacco use type Cigarette 04/28/25 09:10 e-Cigarette/Vaping Use Never Used 04/28/25 09:10 PHQ-9: PHQ-9 Score PHQ-9: Total score 2 04/28/25 09:10 Depression Screening Interpretation: Negative Thrive Assessment: Date of Thrive Assessment Date Thrive assessed 04/25/25 04/28/25 09:10 Currently or been in a relationship where the following occur: I choose not to answer Const General: healthy appearing, no acute distress, alert and awake Nutritional Appearance: well nourished Orientation/consciousness: oriented to person, oriented to place and oriented to time HENMT Ears: TM's normal bilaterally General nose exam: Normal nasal mucous membranes and turbinates present Eyes Conjunctivae: conjunctivae normal Sclerae: sclerae normal Pupils: Equal, round and reactive pupils present Neck Neck: Yes no lymphadenopathy and Yes no JVD Thyroid: Thyroid normal Carotids: no bruits Resp Effort & Inspection: normal respiratory effort and not tachypneic Auscultation: no crackles, no rales, no rhonchi and no wheezes Cardio Rate: regular rate Rhythm: regular rhythm Heart sounds: no murmurs and normal S1 and S2 GI Palpation (GI): Soft to palpation, nontender, no hepatomegaly and no splenomegaly Auscultation: normal bowel sounds Skin Other: General skin exam: no rashes or lesions noted and dry skin Neuro General: oriented to person, oriented to place and oriented to time Cranial nerves: Yes Equal, round and reactive pupils present Speech: No Abnormal speech present Gait exam (Neuro): Normal gait present Motor exam (neuro): no tremor noted Extrem Right upper extremity: full ROM Left upper extremity: full ROM Right lower extremity: full ROM; no edema Left lower extremity: full ROM; no edema Psych Mental Status: mental status grossly normal Speech and movement: Normal speech and movement present Affect: normal affect Attitude: cooperative Thought process: Normal thought process present Coding Level of Care Code Est Pt Level 4 (11235) Diagnoses Psoriasis L40.9 Thumb joint locking M24.849 Diarrhea, unspecified type R19.7 Diarrhea type: unspecified type Additional Codes RISHI-7 Assessment Billing - RISHI-7 Assessment Tool: RISHI-7 Assessment 73715 ([id number]) PHQ-9 - 49983 - PHQ-9 Billing: Yes ([id number]) Assessment & Plan Assessment & Plan (1) Psoriasis: Code(s): L40.9 - Psoriasis, unspecified Category: Medical Plan: The patient will be referred to a route supervisor for further evaluation and management of psoriasis. A prescription for a higher strength cortisone ointment has been provided to manage the rash locally. PLEASE SEE PICTURE SECTION AND PHYSICAL EXAM (2) Thumb joint locking: Code(s): M24.849 - Other specific joint derangements of unspecified hand, not elsewhere classified Category: Medical Plan: The patient will be referred for further cortisone injections to manage thumb joint locking. (3) Diarrhea: Code(s): R19.7 - Diarrhea, unspecified Category: Medical Qualifiers: Diarrhea type: unspecified type Qualified Code(s): R19.7 - Diarrhea, unspecified Plan: The patient is managing fat malabsorption with a low-fat diet, Creon, probiotics, and Metamucil. Unclear if this is a celiac clinical picture with a manifestation of rash over his upper extremity and back. Further imaging with a CT anterogram has been ordered to investigate gastrointestinal issues. Orders: Referrals Orthopedics Referral M24.849 - Other specific joint derangements of unspecified hand, not elsewhere classified Dermatology Referral L40.9 - Psoriasis, unspecified Medications: New mometasone 0.1% 1 appl topical DAILY 4 weeks 45 grams 0RF L40.9 - Psoriasis, unspecified
--- OUTSIDE RECORDS SUMMARY | 2025-04-28 09:20 | XMS_ITS ---
Author Organization [facility] Address [address] [place] [id number] Care Team Providers Care Vacuum Pan Tender Name Role Phone Lucas Andino Primary Care Provider Unavailab Jeff Jama Unavailable [phone] Endy Wilson Unavailable Unavailable Encounters Encounter Location Date Provider Diagnosis [facility] [address] [place] [id number] 12/24/2024 Jeff Navarro Plan Of Treatment No Information Progress Notes * BASILIA LOPEZDOB: [birth year] (64 yo M)Acc No.[id number]:12/24/2024 Patient:?BASILIA LOPEZ :1960???Age:64 Y???Sex:Male Address:[address] [place] [address] , [place], [address] * true * Date:? Generated for Viv penn/Chanel/eTransmitting on:?04/28/2025 09:19 AM EDT
== END 2025-04-28 09:49 | disposition home or self-care (01) ==
LOC: HO.HMCH 08:54
PROVIDERS: PCP Physician Assistant; Visit Provider Physician Assistant
DX: L40.9 Psoriasis, unspecified (principal); M24.849 Other specific joint derangements of unspecified hand, not elsewhere classified; R19.7 Diarrhea, unspecified

== ENCOUNTER → 2025-04-28 08:53 | Outpatient (BNVA) | payer OTHER, SELFPAY | PROVIDERS: PCP Physician Assistant; Visit Provider Physician Assistant | DX: M35.3 Polymyalgia rheumatica (principal); R10.9 Unspecified abdominal pain; L40.9 Psoriasis, unspecified; R19.7 Diarrhea, unspecified; M24.842 Other specific joint derangements of left hand, not elsewhere classified | CPT/HCPCS: 96127 ==

== ENCOUNTER 2025-05-26 07:23 | Outpatient (REF) | payer OTHER, SELFPAY ==
--- OUTSIDE RECORDS SUMMARY | 2024-12-24 05:10 | XMS_ITS ---
Author Organization [facility] Address [address] [place] [address] Care Team Providers Care Timber Killer Name Role Phone Lucas Andino Primary Care Provider Unavailab Jeff Jama Unavailable [phone] Endy Wilson Unavailable Unavailable REASON FOR VISIT Patient presents today for a colon screening Encounters Encounter Location Date Provider Diagnosis [facility] [address] [facility] [address] [place] [phone] 12/24/2024 Jeff Navarro Plan Of Treatment No Information Progress Notes * BASILIA LOPEZDOB: [birth year] (64 yo M)Acc No.[id number]:12/24/2024 Progress Notes Patient: BASILIA BANUELOS Provider: Ruth Navarro MD :1960 A ge:64 Y S ex:Male Date:12/24/2024 Address:[address] [place], [place] [id number] Pcp:Lucas Andino Subjective: * Chief Complaints: * 1 . Patient presents today for a colon screening. * Medical History: Objective: * Vitals: Assessment: Plan: * Treatment: * * The named appointment provid er may or may not be the originator of this progress note, and it is not deemed complete until electronically signed by the appointment provider. Sign off status: Pending * Provider: Ruth Navarro MD Date: 0 12/24/2024 Generated for Laurai ng/Faxing/eTransmitting on: 0 05/26/2025 07:26 AM EDT
[2025-05-26 08:49] LABS: Anion Gap 10 (12-20); Blood Urea Nitrogen 16 mg/dL (9-16); Calcium 8.7 mg/dL (8.4-10.2); Carbon Dioxide 28 mmol/L (22-29); Chloride 108 mmol/L (96-108); Estimated Glomerular Filt Rate > 60; Potassium 3.7 mmol/L (3.3-5.1); Sodium 142 mmol/L (135-145)
== END 2025-05-26 07:24 | disposition home or self-care (01) ==
LOC: HO.LAB 07:23
PROVIDERS: Internal Medicine Gastroenterology; PCP Physician Assistant; Visit Provider Nurse Practitioner Family
DX: N18.30 Chronic kidney disease, stage 3 unspecified (principal)
CPT/HCPCS: 36415; 80048

== ENCOUNTER 2025-06-24 12:46 | Outpatient (REF) | payer OTHER, SELFPAY ==
--- OUTSIDE RECORDS SUMMARY | 2024-12-24 05:10 | XMS_ITS ---
Author Organization [facility] Address [address] [place] [address] Care Team Providers Care Reservoir Engineer Name Role Phone Lucas Andino Primary Care Provider Unavailab Jeff Jama Unavailable [phone] Endy Wilson Unavailable Unavailable REASON FOR VISIT Patient presents today for a colon screening Encounters Encounter Location Date Provider Diagnosis [facility] [address] [facility] [address] [place] [address] 12/24/2024 Jeff Navarro Plan Of Treatment No Information Progress Notes * BASILIA LOPEZDOB: [birth year] (65 yo M)Acc No.[id number]:12/24/2024 Progress Notes Patient: BASILIA BANUELOS Provider: Ruth Navarro MD :1960 A ge:64 Y S ex:Male Date:12/24/2024 Address:[address] [place], [place] [phone] Pcp:Lucas Andino Subjective: * Chief Complaints: * [...] 12/24/2024 Generated for Laurai ng/Faxing/eTransmitting on: 0 06/24/2025 01:28 PM EDT
--- NOTE | ~2025-06-24 | CT_ITS ---
CLINICAL HISTORY: R10.33 - Periumbilical pain Exam: CT enterography with IV contrast Comparison: None Findings: Unremarkable lung bases. Atherosclerotic calcification of the aorta and coronary arteries noted. Suboptimal enterography exam due to inadequate small-bowel distention, the stomach, duodenum and small bowel are grossly unremarkable. Liquid stool throughout the colon, no convincing colonic wall thickening, scattered diverticula of the distal colon noted, no acute diverticulitis. Normal appendix. Focal nodular thickening of the gallbladder fundus wall, otherwise normal gallbladder. No bile duct dilatation. Liver, spleen, pancreas, adrenal glands, bladder are unremarkable. Bilateral renal too small to characterize hypodensities, no apparent urolithiasis or obstructive uropathy. Mild prostatomegaly. Moderate atherosclerotic disease, nonaneurysmal aorta. No ascites or pneumoperitoneum. No lymphadenopathy. Fat containing umbilical hernia without fatty stranding. Degenerative changes of the lumbar spine. Impression: 1. No CT finding to account for paraumbilical pain. Fat containing umbilical hernia without fatty stranding. 2. Distal colonic diverticulosis, no acute diverticulitis. 3. Atherosclerotic disease. 4. Additional ancillary findings. This document has been electronically signed by: Amira Lugo MD on 06/25/2025 16:27:28
[2025-06-24] MEDS: iohexoL 350 MG/ML 100 ML INFUS..BTL 85 ML IV (15:45)
[2025-06-24] MEDS: Sorbitol/Mannit/Xanth Imaging 500 ML LIQUID 1500 ML PO (15:46)
== END 2025-06-24 12:47 | disposition home or self-care (01) ==
LOC: HO.CT 12:46
PROVIDERS: PCP Physician Assistant; Visit Provider Internal Medicine Gastroenterology
DX: R10.33 Periumbilical pain (principal)
CPT/HCPCS: 74177; Q9967

== ENCOUNTER → 2025-06-24 12:48 | Outpatient (BNV) | payer OTHER, SELFPAY | PROVIDERS: PCP Physician Assistant; Visit Provider Radiology Diagnostic Radiology | DX: K42.9 Umbilical hernia without obstruction or gangrene (principal) | CPT/HCPCS: 74177 ==

== ENCOUNTER 2025-07-01 13:47 | Outpatient (AMB) | payer OTHER, SELFPAY ==
--- OUTSIDE RECORDS SUMMARY | 2024-12-24 05:10 | XMS_ITS ---
Author Organization [facility] Address [address] [place] [address] Care Team Providers Care Cryptologic Technician Operator/Analyst Name Role Phone Lucas Andino Primary Care Provider Unavailab Jeff Jama Unavailable [phone] Endy Wilson Unavailable Unavailable REASON FOR VISIT Patient presents today for a colon screening Encounters Encounter Location Date Provider Diagnosis [facility] [address] [facility] [address] [place] [phone] 12/24/2024 Jeff Navarro Plan Of Treatment No Information Progress Notes * BASILIA LOPEZDOB: [birth year] (65 yo M)Acc No.[id number]:12/24/2024 Progress Notes Patient: BASILIA BANUELOS Provider: Ruth Navarro MD :1960 A ge:64 Y S ex:Male Date:12/24/2024 Address:[address] [place], [place] [phone] Pcp:Lucas Andino Subjective: * Chief Complaints: * [...] 12/24/2024 Generated for Laurai ng/Faxing/eTransmitting on: 0 07/01/2025 03:05 PM EDT
--- NOTE | 2025-07-01 13:52 | A.OFFPC_ITS ---
Vital Signs 07/01/25 13:53 07/01/25 14:22 Height 5 ft 9 in Weight 218 lb 2 oz BMI 32.2 BP 150/76 H 138/70 Blood Pressure Location Lt brachial Position Sitting Pulse 64 Pulse Source Pulse Oximeter Temp 97.1 F Temp Source Temporal Artery Scan Pulse Oximetry (%) 95 Oxygen Delivery Method Room Air Intake Visit Reasons: CT scan review Intake Note: Patient is here to follow up on CT scan review. Inspector Crystal Required: No Rubber Goods Inspector Tester: Not Required per policy Accompanied by: Self / Same As Patient Allergies No Known Allergies (No Known Allergies*) Allergy (Verified 07/01/25 14:00) Medication List - Last Reconciled 07/01/25 by Lucas Andino PA-C cholecalciferol (vitamin D3) 125 mcg PO DAILY doykjh-hliziwaf-vuftkmu 36,000-114,000- 180,000 unit (Creon) 2 caps PO TID lisinopril-hydrochlorothiazide 10-12.5 mg 1 tab PO DAILY 90 days loperamide 2 mg PO Q8H 15 days metoprolol succinate ER 100 mg PO DAILY mometasone 0.1% 1 appl topical DAILY 4 weeks rifaximin 550 mg PO TID 2 weeks tamsulosin 0.4 mg PO BEDTIME zolpidem 10 mg PO BEDTIME PRN 14 days Tobacco use date assessed: 07/01/25 Dental Screening Dental Screen Date: 04/28/[address] scan review HPI Details The patient is a 65-year-old male presenting with concerns regarding atherosclerosis and other health issues identified in recent tests. The patient reports being informed about atherosclerosis from a CT scan, which was not initially communicated by the gastroenterology team. He expresses concern about the calcification and potential blockage, although he is unsure of the severity. The patient acknowledges a history of poor diet contributing to this condition and has started dietary modifications to manage cholesterol levels. The patient has a known umbilical hernia, which he can palpate, and has been informed that it is not a significant concern unless it becomes painful. He has been experiencing issues with fat digestion, leading to diarrhea, which has improved with dietary changes and fiber supplementation. 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 The patient also reports a history of polymyalgia rheumatica, which has resolved, and current psoriasis managed with topical treatment. He notes that psoriasis lesions are persistent and occasionally cause superficial bleeding. CT enterogram showing--> 1. No CT finding to account for paraumbilical pain. Fat containing umbilical hernia without fatty stranding. 2. Distal colonic diverticulosis, no acu te diverticulitis. 3. Atherosclerotic disease. 4. Additional ancillary findings. [facility] Medical History Insomnia Nocturnal hypoxemia Trigger finger, left index finger RLS (restless legs syndrome) Eczema Surgical History History of colonoscopy (~2013) History of lumbar surgery Family History Father Diabetes Mother Gastric cancer Brother Prostate cancer Family/Other FH: mental illness Sister Cancer Social History Housing: House Are you a primary healthcare network pricing consultant to a significant other at home: No Do you presently have visiting nurse or other home services: No Alcohol intake: current Alcohol intake frequency: a few times a month Alcohol type: beer Patient Tobacco Use Status: Former Tobacco user Tobacco use type: Cigarette e-Cigarette/Vaping Use: Never Used Second Hand Smoke Exposure: Yes service: No Current occupational status: employed Current occupational exposures/hazards: No Cognitive needs: No Hearing needs: No Vision needs: Yes Questionnaire Thrive Questionnaire Date Thrive assessed: 04/25/25 I am a: Patient What is your living situation today?: I choose not to answer this question Within the past 12 months, did the food you bought not last and you didn't have the money to get more?: I choose not to answer this question Within the past 12 months, did you worry whether your food would run out before you got money to buy more?: I choose not to answer this question Do you have trouble paying for medicines?: I choose not to answer this question Do you have trouble getting transportation to medical appointments?: I choose not to answer this question Do you have trouble paying your heating and electricity bill?: I choose not to answer this question Do you have trouble taking care of your child, family member or friend?: I choose not to answer this question Do you have trouble with day-to-day activities such as bathing, preparing meals, shopping, managing finances, etc.?: I choose not to answer this question Are you currently unemployed and looking for a job?: I choose not to answer this question Are you interested in more education?: I choose not to answer this question Please select the resources that you would like help with: None Currently or been in a relationship where the following occur: I choose not to answer THRIVE Score: 0 RISHI-7 AMB Questionnaire RISHI-7 Date RISHI - 7 assessed: 04/28/25 Source: Developed by Drs. Jeff Casillas, Tamela Jansen, Wayne Kate and colleagues, with an educational zain from [employer]. Review of Systems Const Denies headache(s) Eyes Denies loss of vision ENT Denies vertigo, Denies dizziness, Denies headache(s) and Denies sore throat Card Denies chest pain, Denies leg edema and Denies lightheadedness Resp Denies cough, Denies hemoptysis and Denies wheezing GI Denies abdominal pain, Denies melena, Denies constipation, Denies diarrhea and Denies vomiting Denies dysuria, Denies urinary frequency and Denies urinary urgency Musc Denies arthralgias, Denies joint swelling, Denies numbness and Denies tingling Neuro Denies Abnormal speech present, Denies behavioral changes, Denies vertigo, Denies dizziness, Denies headache(s), Denies loss of vision, Denies memory loss, Denies numbness and Denies tingling Psych Denies anxiety, Denies behavioral changes, Denies depression, Denies memory loss and Denies panic attacks Kodak/Lymph Denies easy bleeding and Denies easy bruising Aller/Immun Denies wheezing Physical exam (Primary Care) Vital Signs: Last Vital Signs Temp 97.1 F 07/01/25 13:53 Pulse 64 07/01/25 13:53 BP 138/70 07/01/25 14:22 Pulse Ox 95 07/01/25 13:53 Oxygen Delivery Method Room Air 07/01/25 13:53 BMI result Body Mass Index 32.2 Tobacco/Smoking Status: Tobacco use Status Tobacco use date assessed 07/01/25 07/01/25 13:57 Patient Tobacco Use Status Former Tobacco user 07/01/25 13:57 Tobacco use type Cigarette 07/01/25 13:57 e-Cigarette/Vaping Use Never Used 07/01/25 13:57 Thrive Assessment: Date of Thrive Assessment Date Thrive assessed 04/25/25 07/01/25 13:57 Currently or been in a relationship where the following occur: I choose not to answer Const General: healthy appearing, no acute distress, alert and awake Nutritional Appearance: well nourished Orientation/consciousness: oriented to person, oriented to place and oriented to time HENMT Ears: TM's normal bilaterally General nose exam: Normal nasal mucous membranes and turbinates present Eyes Conjunctivae: conjunctivae normal Sclerae: sclerae normal Pupils: Equal, round and reactive pupils present Neck Neck: Yes no lymphadenopathy and Yes no JVD Thyroid: Thyroid normal Carotids: no bruits Resp Effort & Inspection: normal respiratory effort and not tachypneic Auscultation: no crackles, no rales, no rhonchi and no wheezes Cardio Rate: regular rate Rhythm: regular rhythm Heart sounds: no murmurs and normal S1 and S2 GI Palpation (GI): Soft to palpation, nontender, no hepatomegaly and no splenomegaly Auscultation: normal bowel sounds Skin General skin exam: no rashes or lesions noted and dry skin Neuro General: oriented to person, oriented to place and oriented to time Cranial nerves: Yes Equal, round and reactive pupils present Speech: No Abnormal speech present Gait exam (Neuro): Normal gait present Motor exam (neuro): no tremor noted Extrem Right upper extremity: full ROM Left upper extremity: full ROM Right lower extremity: full ROM; no edema Left lower extremity: full ROM; no edema Psych Mental Status: mental status grossly normal Speech and movement: Normal speech and movement present Affect: normal affect Attitude: cooperative Thought process: Normal thought process present Coding Level of Care Code Est Pt Level 4 (30983) Diagnoses Atherosclerosis I70.90 Abdominal bloating R14.0 Assessment & Plan Assessment & Plan (1) Atherosclerosis: Code(s): I70.90 - Unspecified atherosclerosis Category: Medical Plan: The patient was advised to continue dietary modifications to manage cholesterol levels and reduce cardiovascular risk. Consideration of starting statin therapy was discussed to further reduce cholesterol levels, with attention to potential side effects such as muscle aches. GOAL LDL TO BE BELOW 100 (2) Abdominal bloating: Code(s): R14.0 - Abdominal distension (gaseous) Category: Medical Plan: As per HPI patient is abdominal imaging essentially stable. Incidental note of moderate atherosclerosis noted. The patient has been managing symptoms with dietary changes and fiber supplementation, although Creon use has been inconsistent due to cost and availability. Orders: Orders Lipid Panel 07/01/25 I70.90 - Unspecified atherosclerosis Complete Blood Count no Diff 07/01/25 I70.90 - Unspecified atherosclerosis Comprehensive [place]. Panel Fast 07/01/25 I70.90 - Unspecified atherosclerosis Medications: New atorvastatin (Lipitor) 10 mg PO DAILY 90 tabs 1RF 90 days I70.90 - Unspecified atherosclerosis
[2025-07-01 13:53] VITALS: BP 150/76; PULSE 64; TEMP 36.2; O2SAT 95; BMI 32.2
[2025-07-01 14:22] VITALS: BP 138/70
== END 2025-07-01 14:28 | disposition home or self-care (01) ==
LOC: HO.HMCH 13:48
PROVIDERS: PCP Physician Assistant; Visit Provider Physician Assistant
DX: I70.90 Unspecified atherosclerosis (principal); R14.0 Abdominal distension (gaseous)

== ENCOUNTER 2025-07-15 08:24 | Outpatient (AMB) | payer OTHER, SELFPAY ==
--- OUTSIDE RECORDS SUMMARY | 2024-12-24 05:10 | XMS_ITS ---
Author Organization [facility] Address [address] [place] [address] Care Team Providers Care Science Manager Name Role Phone Lucas Andino Primary Care Provider Unavailab Jeff Jama Unavailable [phone] Endy Wilson Unavailable Unavailable REASON FOR VISIT Patient presents today for a colon screening Encounters Encounter Location Date Provider Diagnosis [facility] [address] [facility] [address] [place] [phone] 12/24/2024 Jeff Navarro Plan Of Treatment No Information Progress Notes * BASILIA LOPEZDOB: [birth year] (65 yo M)Acc No.[id number]:12/24/2024 Progress Notes Patient: BASILIA BANUELOS Provider: Ruth Navarro MD :1960 A ge:64 Y S ex:Male Date:12/24/2024 Address:[address] [place], [place] [id number] Pcp:Lucas Andino Subjective: * Chief Complaints: * [...] 12/24/2024 Generated for Laurai ng/Faxing/eTransmitting on: 0 07/15/2025 09:02 AM EDT
--- NOTE | 2025-07-15 08:27 | A.OFFPC_ITS ---
Vital Signs 07/15/25 08:28 Height 5 ft 9 in Weight 215 lb 8 oz BMI 31.8 BP 122/70 Blood Pressure Location Lt brachial Position Sitting Pulse 60 Pulse Source Pulse Oximeter Temp 97.1 F Temp Source Temporal Artery Scan Pulse Oximetry (%) 96 Oxygen Delivery Method Room Air Intake Visit Reasons: PE Intake Note: Patient is here today for a physical. Wrapper Stemmer Operator Required: No Coater Carbon Paper: Not Required per policy Accompanied by: Self / Same As Patient Allergies trazodone Adverse Reaction (Intermediate, Verified 07/15/25 08:58) excessive sleep Medication List - Last Reconciled 07/15/25 by Lucas Andino PA-C atorvastatin (Lipitor) 10 mg PO DAILY 90 days cholecalciferol (vitamin D3) 125 mcg PO DAILY lisinopril-hydrochlorothiazide 10-12.5 mg 1 tab PO DAILY 90 days loperamide 2 mg PO Q8H 15 days metoprolol succinate ER 100 mg PO DAILY mometasone 0.1% 1 appl topical DAILY 4 weeks rifaximin 550 mg PO TID 2 weeks tamsulosin 0.4 mg PO BEDTIME zolpidem 10 mg PO BEDTIME PRN 14 days Tobacco use date assessed: 07/15/25 Dental Screening Dental Screen Date: 04/28/25 HPI PE HPI Details Patient is a 65-year-old male here today for a routine annual physical. Patient's past medical history significant for obstructive sleep apnea, insomnia, borderline high cholesterol and hypertension. Concern--> The patient reports experiencing allergic rhinitis, characterized by a persistent cough and throat irritation, which he attributes to seasonal allergies. He notes improvement in symptoms as the summer ends. .. Atherosclerosis/ HLD: Patient recently started on statin therapy due to the atherosclerosis noted his abdominal imaging .. Hypertension: Blood pressure acceptable today in office. Can use on lisinopril hydrochlorothiazide with good effect. He admits to eating more salt in his diet. Denies any headaches, vision issues or chest discomfort. .. Obstructive sleep apnea: Followed by pulmonology, does use a CPAP machine on a nightly basis with good effect. . Insomnia: The patient experiences insomnia and uses Ambien sparingly to manage his sleep difficulties. He is considering increasing the frequency of Ambien use to three times a week to improve sleep quality. Colon cancer screening: Up-to-date with colonoscopy (done in 2024), followed by [facility] Vaccines: Up-to-date with COVID vaccine, flu vaccine and tdap, need Shingles , needs PCV PFSH Medical History Insomnia Nocturnal hypoxemia Trigger finger, left index finger RLS (restless legs syndrome) Eczema Surgical History History of colonoscopy (~2013) History of lumbar surgery Family History Father Diabetes Mother Gastric cancer Brother Prostate cancer Family/Other FH: mental illness Sister Cancer Social History Housing: House Are you a primary geriatric care manager to a significant other at home: No Do you presently have visiting nurse or other home services: No Alcohol intake: current Alcohol intake frequency: a few times a month Alcohol type: beer Patient Tobacco Use Status: Former Tobacco user Tobacco use type: Cigarette e-Cigarette/Vaping Use: Never Used Second Hand Smoke Exposure: Yes service: No Current occupational status: employed Current occupational exposures/hazards: No Cognitive needs: No Hearing needs: No Vision needs: Yes Questionnaire Thrive Questionnaire Date Thrive assessed: 04/25/25 I am a: Patient What is your living situation today?: I choose not to answer this question Within the past 12 months, did the food you bought not last and you didn't have the money to get more?: I choose not to answer this question Within the past 12 months, did you worry whether your food would run out before you got money to buy more?: I choose not to answer this question Do you have trouble paying for medicines?: I choose not to answer this question Do you have trouble getting transportation to medical appointments?: I choose not to answer this question Do you have trouble paying your heating and electricity bill?: I choose not to answer this question Do you have trouble taking care of your child, family member or friend?: I choose not to answer this question Do you have trouble with day-to-day activities such as bathing, preparing meals, shopping, managing finances, etc.?: I choose not to answer this question Are you currently unemployed and looking for a job?: I choose not to answer this question Are you interested in more education?: I choose not to answer this question Please select the resources that you would like help with: None Currently or been in a relationship where the following occur: I choose not to answer THRIVE Score: 0 RISHI-7 AMB Questionnaire RISHI-7 Date RISHI - 7 assessed: 04/28/25 Source: Developed by Drs. Jeff Casillas, Tamela Jansen, Wayne Kate and colleagues, with an educational zain from [employer]. Review of Systems Const Denies body aches, Denies chills, Denies excessive sweating, Denies fatigue, Denies fever(s) and Denies headache(s) Eyes Denies blurry vision ENT Denies dysphagia, Denies vertigo, Denies dizziness, Denies headache(s), Denies hearing loss and Denies tinnitus Card Denies chest pain, Denies chest pain with activity, Denies syncope, Denies irregular heart rhythm and Denies dyspnea Resp Denies chest congestion, Denies cough, Denies hemoptysis, Denies dyspnea and Denies wheezing GI Denies abdominal pain, Denies melena, Denies hematochezia, Denies coffee ground emesis, Denies dysphagia, Denies diarrhea, Denies nausea and Denies vomiting Denies difficulty urinating, Denies dysuria, Denies urinary frequency, Denies urinary hesitancy and Denies urinary urgency Musc Denies arthralgias, Denies limited range of motion, Denies muscle cramps and Denies muscle weakness Skin/Breast Denies rash and Denies skin ulcer Neuro Denies Abnormal speech present, Denies confusion, Denies vertigo, Denies dizziness, Denies syncope, Denies headache(s), Denies memory loss and Denies seizure-like activity Psych Denies anxiety, Denies confusion, Denies depression, Denies memory loss, Denies panic attacks and Denies paranoia Endo Denies excessive sweating, Denies fatigue, Denies flushing, Denies polydipsia and Denies polyuria Aller/Immun Denies wheezing Physical exam (Primary Care) Vital Signs: Last Vital Signs Temp 97.1 F 07/15/25 08:28 Pulse 60 07/15/25 08:28 BP 122/70 07/15/25 08:28 Pulse Ox 96 07/15/25 08:28 Oxygen Delivery Method Room Air 07/15/25 08:28 BMI result Body Mass Index 31.8 BMI Assessment/Plan discussion: High BMI High, discussed plan: lifestyle, weight reduction, dietary and physical activity Tobacco/Smoking Status: Tobacco use Status Tobacco use date assessed 07/15/25 07/15/25 08:32 Patient Tobacco Use Status Former Tobacco user 07/15/25 08:32 Tobacco use type Cigarette 07/15/25 08:32 e-Cigarette/Vaping Use Never Used 07/15/25 08:32 Thrive Assessment: Date of Thrive Assessment Date Thrive assessed 04/25/25 07/15/25 08:32 Currently or been in a relationship where the following occur: I choose not to answer Const General: cooperative, comfortable, no acute distress, alert and awake; No confusion Orientation/consciousness: oriented to person, oriented to place, patient oriented x3 and No confusion HENMT Head: Yes normocephalic Ears: external ears normal and TM's normal bilaterally Face and sinus: No sinus tenderness Mouth: Normal oral and palatal mucosa present and tongue normal Teeth and gingiva: dentition normal and gingiva normal Throat: Yes posterior oropharynx normal, Yes tonsils normal and Yes uvula midline Eyes Conjunctivae: conjunctivae normal Sclerae: sclerae normal Pupils: Equal, round and reactive pupils present EOM: EOMs intact bilaterally Direct Ophthalmoscopy: No no photophobia Neck Neck: Yes no lymphadenopathy, No tender and Yes no JVD Thyroid: Thyroid normal Carotids: no bruits Chest Chest palpation & inspection: no tenderness Resp Effort & Inspection: normal respiratory effort, no audible wheezes, not labored and no stridor Auscultation: no crackles, no rales, no rhonchi and no wheezes Cardio Jugular venous distension: no JVD Rate: regular rate, not bradycardic and not tachycardic Rhythm: regular rhythm Bruits: no carotid bruits Peripheral pulses: Peripheral pulses 2+ throughout GI Inspection: Yes normal to inspection, No abdominal wall ecchymosis and No visible herniation Palpation (GI): Soft to palpation, nontender, no guarding, not rigid and No hepatosplenomegaly present Auscultation: normoactive bowel sounds General: Yes no CVA tenderness Back/Spine/Pelvis Back: no CVA tenderness and No back tenderness Cervical Spine: cervical ROM normal Thoracic/Lumbar Spine: thoracic and lumbar spine normal to inspection, straight leg raise negative bilaterally, No thoraco-lumbar ROM limited and No lumbar spinal tenderness Skin Lesions: no lesions Rashes: no rashes Wounds: no wounds Neuro General: oriented to person, oriented to place, patient oriented x3, CN's II-XI intact bilaterally and No confusion Cranial nerves: Yes Equal, round and reactive pupils present and Yes Normal accommodation reflex present Cognition (Neuro): normal cognition Speech: No Abnormal speech present Gait exam (Neuro): Normal gait present Motor exam (neuro): 5/5 motor strength present throughout Extrem Right upper extremity: full ROM; no cyanosis Left upper extremity: full ROM; no cyanosis Right lower extremity: no edema Left lower extremity: no edema Psych Appearance: grossly normal Mental Status: mental status grossly normal Affect: normal affect Attitude: cooperative Thought process: Normal thought process present Coding Level of Care Code Est Pt Prev Care 40-64y(09788) Diagnoses Annual physical exam Z00.00 Primary insomnia F51.01 Insomnia type: primary GUS (obstructive sleep apnea) G47.33 Essential hypertension I10 Hypertension type: essential hypertension Atherosclerosis I70.90 Assessment & Plan Assessment & Plan (1) Annual physical exam: Code(s): Z00.00 - Encounter for general adult medical examination without abnormal findings Category: Medical Plan: as per HPI (2) Insomnia: Comment: HE HAS LONGSTANDING HISTORY OF DIFFICULTY IN FALLING AND MAINTAINING SLEEP. Trazodone is helping. Advised to continue using 100 mg before bedtime, every night. Code(s): G47.00 - Insomnia, unspecified Category: Medical Qualifiers: Insomnia type: primary Qualified Code(s): F51.01 - Primary insomnia Plan: The patient experiences insomnia and uses Ambien sparingly. He is considering increasing the frequency of Ambien use to three times a week to improve sleep quality. A prescription adjustment has been made to accommodate this change. (3) GUS (obstructive sleep apnea): Comment: Patient is confirmed case of obstructive sleep apnea, with mild nocturnal hypoxemia and RLS. His compliance remains suboptimal, main reason being nasal congestion. He tried fullface mask but it did not work for him because he fell somewhat claustrophobic. He is back to using nasal pillows . Plan is to order antihistaminic spray to use before putting on the mask. tx: Azelastin nasal spray 1 spray each nostril at night before putting on the nasal mask. Code(s): G47.33 - Obstructive sleep apnea (adult) (pediatric) Category: Medical Plan: Continues to follow up pulmonology. Using his CPAP on a nearly nightly basis. He feels that he needs new CPAP machine settings (4) HTN (hypertension): Code(s): I10 - Essential (primary) hypertension Category: Medical Qualifiers: Hypertension type: essential hypertension Qualified Code(s): I10 - Essential (primary) hypertension Plan: Patient's blood pressure acceptable today in office. Will continue him on his current dose of antihypertensive medication with goal blood pressure to remain below 140/90 (5) Atherosclerosis: Code(s): I70.90 - Unspecified atherosclerosis Category: Medical Plan: The patient is on medication for hyperlipidemia and is curious about the effects of his new diet and medication on cholesterol levels. Fasting labs are planned to evaluate cholesterol and blood sugar levels. Medications: Changed From zolpidem 10 mg PO BEDTIME 14 days PRN 14 tabs 2RF sleep G47.00 - Insomnia, unspecified To zolpidem 10 mg PO 3XW PRN 12 tabs 3RF sleep 4 weeks G47.00 - Insomnia, unspecified Refilled mometasone 0.1% 1 appl topical DAILY 45 grams 3RF 4 weeks L40.9 - Psoriasis, unspecified
[2025-07-15 08:28] VITALS: BP 122/70; PULSE 60; TEMP 36.2; O2SAT 96; BMI 31.8
--- OUTSIDE RECORDS SUMMARY | 2025-07-15 09:02 | XMS_ITS | Patient Health Record ---
Author Organization [facility] Address [address] [place] [phone] Care Team Providers Care Container Maker Name Role Phone Lucas Andino Primary Care Provider Unavailab Jeff Jama Unavailable [phone] Endy Wilson Unavailable Unavailable Reason For Referral [...] W/U Status Risk Notes Problem Pre-surgery evaluation (211476776) Other specified pre-operative examination (V72.83) Active confirmed Problem Colon cancer screening (099489647) Colon cancer screening (V76.51) Active confirmed Encounters Encounter Location Date Provider Diagnosis [facility] [address] [place] [phone] 12/24/2024 Jeff Navarro Plan Of Treatment Future Test Test Name Order Date COLONOSCOPY 02/25/2014 Insurance Providers Payer Name Payer Address Payer Phone Subscriber Number Group Number Insured Name Patient Relationship to Insured Coverage Start Date Coverage End Date [facility] [address] [place] [id number] Self - patient is the insured Medical (General) History Medical History History ICD Code HTN Denies [place],DM,CVA,Lung disease,renal dise ase insomnia Surgical History Surgery Date(Month/Year) Lower back surgery X 2
== END 2025-07-15 09:01 | disposition home or self-care (01) ==
LOC: HO.HMCH 08:25
PROVIDERS: PCP Physician Assistant; Visit Provider Physician Assistant
DX: Z00.00 Encounter for general adult medical examination without abnormal findings (principal); F51.01 Primary insomnia; G47.33 Obstructive sleep apnea (adult) (pediatric); I10 Essential (primary) hypertension; I70.90 Unspecified atherosclerosis

== ENCOUNTER 2025-08-07 09:06 | Outpatient (AMB) | payer OTHER, SELFPAY ==
--- OUTSIDE RECORDS SUMMARY | 2024-12-24 05:10 | XMS_ITS ---
Author Organization [facility] Address [address] [place] [address] Care Team Providers Care Health And Safety Consultant Name Role Phone Lucas Andino Primary Care Provider Unavailab Jeff Jama Unavailable [phone] Endy Wilson Unavailable Unavailable REASON FOR VISIT Patient presents today for a colon screening Encounters Encounter Location Date Provider Diagnosis [facility] [address] [facility] [address] [place] [address] 12/24/2024 Jeff Navarro Plan Of Treatment No Information Progress Notes * BASILIA LOPEZDOB: [birth year] (65 yo M)Acc No.[id number]:12/24/2024 Progress Notes Patient: BASILIA BAUNELOS Provider: Ruth Navarro MD :1960 A ge:64 Y S ex:Male Date:12/24/2024 Address:[address] [place], [place] [phone] Pcp:Lucas Andino Subjective: * Chief Complaints: * [...] 12/24/2024 Generated for Laurai ng/Faxing/eTransmitting on: 0 08/07/2025 09:57 AM EDT
--- OUTSIDE RECORDS SUMMARY | 2025-08-07 09:57 | XMS_ITS | Patient Health Record ---
Author Organization [facility] Address [address] [place] [phone] Care Team Providers Care Tobacco Sweeper Name Role Phone Lucas Andino Primary Care Provider Unavailab Jeff Jama Unavailable [phone] Endy Wilson Unavailable Unavailable Reason For Referral [...] W/U Status Risk Notes Problem Pre-surgery evaluation (145382294) Other specified pre-operative examination (V72.83) Active confirmed Problem Colon cancer screening (791591276) Colon cancer screening (V76.51) Active confirmed Encounters Encounter Location Date Provider Diagnosis [facility] [address] [place] [phone] 12/24/2024 Jeff Navarro Plan Of Treatment Future Test Test Name Order Date COLONOSCOPY 02/25/2014 Insurance Providers Payer Name Payer Address Payer Phone Subscriber Number Group Number Insured Name Patient Relationship to Insured Coverage Start Date Coverage End Date [facility] [address] [place] [id number] Self - patient is the insured Medical (General) History Medical History History ICD Code HTN Denies [place],DM,CVA,Lung disease,renal dise ase insomnia Surgical History Surgery Date(Month/Year) Lower back surgery X 2
--- NOTE | 2025-08-30 08:30 | A.OFFVIS_ITS ---
Intake Visit Reasons: CAPSULE ENDOSCOPY - [facility] Allergies trazodone Adverse Reaction (Intermediate, Verified 07/15/25 08:58) excessive sleep PFSH Medical History Insomnia Nocturnal hypoxemia Trigger finger, left index finger RLS (restless legs syndrome) Eczema Surgical History History of colonoscopy (~2013) History of lumbar surgery Family History Father Diabetes Mother Gastric cancer Brother Prostate cancer Family/Other FH: mental illness Sister Cancer Social History Housing: House Are you a primary dog day care attendant to a significant other at home: No Do you presently have visiting nurse or other home services: No Alcohol intake: current Alcohol intake frequency: a few times a month Alcohol type: beer Patient Tobacco Use Status: Former Tobacco user Tobacco use type: Cigarette e-Cigarette/Vaping Use: Never Used Second Hand Smoke Exposure: Yes service: No Current occupational status: employed Current occupational exposures/hazards: No Cognitive needs: No Hearing needs: No Vision needs: Yes Office Procedures AMB Capsule Endoscopy Procedure Notes: Capsule Endoscopy: Date of Service: Indication: abdominal pain and suspected crohns Findings: esophagitis noted with prominent fold at GEJ. Patchy gastric erythema with few erosions. Duodenum entered at 44 mins with swollen folds and patchy erythema noted in parts of the duodenum, Rest of small bowel normal. cecum reached at 3 hr 35 min Conclusion: esophagitis erosive gastritis duodenitis consider checking for h pylori repeat egd to re eval esophagus trial of PPI check nsaid hx Capsule Endoscopy CPT Code: 86001 - Capsule Endoscopy Assessment & Plan Assessment & Plan (1) Abdominal bloating: Code(s): R14.0 - Abdominal distension (gaseous) Category: Medical Plan: as above Coding Level of Care Code Procedure Only Diagnoses Abdominal bloating R14.0 CPT Codes AMB Capsule Endoscopy - Capsule Endoscopy CPT Code: 46026 - Capsule Endoscopy ([id number])
== END 2025-08-07 09:43 | disposition home or self-care (01) ==
LOC: HO.HGI 09:07
PROVIDERS: PCP Physician Assistant; Visit Provider Internal Medicine Gastroenterology
DX: R14.0 Abdominal distension (gaseous) (principal)
CPT/HCPCS: 91110

== ENCOUNTER → 2025-08-07 09:06 | Outpatient (BNVA) | payer OTHER, SELFPAY | PROVIDERS: PCP Physician Assistant; Visit Provider Internal Medicine Gastroenterology | DX: R14.0 Abdominal distension (gaseous) (principal) | CPT/HCPCS: 91110 ==

== ENCOUNTER 2025-09-02 10:54 | Outpatient (REF) | payer OTHER, SELFPAY | END 2025-09-02 10:55 | disposition home or self-care (01) | LOC: HO.LNP 10:54 | PROVIDERS: Nurse Practitioner Family; PCP Physician Assistant; Visit Provider Internal Medicine Gastroenterology | DX: K21.9 Gastro-esophageal reflux disease without esophagitis (principal) | CPT/HCPCS: 83013; 99211 ==

== ENCOUNTER 2025-09-02 10:54 | Outpatient (AMB) | payer OTHER, SELFPAY ==
--- OUTSIDE RECORDS SUMMARY | 2024-12-24 05:10 | XMS_ITS ---
Author Organization [facility] Address [address] [place] [address] Care Team Providers Care Programming Internship Name Role Phone Lucas Andino Primary Care Provider Unavailab Jeff Jama Unavailable [phone] Endy Wilson Unavailable Unavailable REASON FOR VISIT Patient presents today for a colon screening Encounters Encounter Location Date Provider Diagnosis [facility] [address] [facility] [address] [place] [phone] 12/24/2024 Jeff Navarro Plan Of Treatment No Information Progress Notes * BASILIA LOPEZDOB: [birth year] (65 yo M)Acc No.[id number]:12/24/2024 Progress Notes Patient: BASILIA BANUELOS Provider: Ruth Navarro MD :1960 A ge:64 Y S ex:Male Date:12/24/2024 Address:[address] [place], [place] [phone] Pcp:Lucas Andino Subjective: * Chief Complaints: * [...] MD Date: 0 12/24/2024 Generated for Laurai ng/Facleopatrag/eTransmitting on: 1 01:36 PM EDT
--- NOTE | 2025-09-02 11:08 | AM.OFFVISNUR ---
Intake Visit Reasons: HP Breath Test. NPO. No held meds Intake Note: Pt presents for H Pylori BT. Protocols reviewed with pt and confirmed to be followed. Pt advised of instructions for the test and began testing at 1105. Testing was concluded at 1120. No questions or additional concerns per pt at the end of testing. Advised pt that we will contact them with results when they are obtained. Crane Operator Cab Required: No Accompanied by: Self / Same As Patient Allergies trazodone Adverse Reaction (Intermediate, Verified 07/15/25 08:58) excessive sleep Nursing Note Pt presents for H Pylori BT. Protocols reviewed with pt and confirmed to be followed. Pt advised of instructions for the test and began testing at 1105. Testing was concluded at 1120. No questions or additional concerns per pt at the end of testing. Advised pt that we will contact them with results when they are obtained. Assessment & Plan Assessment & Plan (1) GERD (gastroesophageal reflux disease): Code(s): K21.9 - Gastro-esophageal reflux disease without esophagitis Category: Medical Qualifiers: Esophagitis presence: esophagitis presence not specified Qualified Code(s): K21.9 - Gastro-esophageal reflux disease without esophagitis (2) Abdominal bloating: Code(s): R14.0 - Abdominal distension (gaseous) Category: Medical Coding Level of Care Code Established Pt Procedure Only Patient Type Established Diagnoses Gastroesophageal reflux disease, unspecified whether esophagitis present K21.9 Esophagitis presence: esophagitis presence not specified Abdominal bloating R14.0
--- OUTSIDE RECORDS SUMMARY | 2025-09-02 13:36 | XMS_ITS | Patient Health Record ---
Author Organization [facility] Address [address] [place] [phone] Care Team Providers Care Proof Load Mechanic Name Role Phone Lucas Andino Primary Care Provider Unavailab Jeff Jama Unavailable [phone] Endy Wilson Unavailable Unavailable Reason For Referral No Information Medications Medication SIG (Take, Route, Frequency, Duration) Notes Start Date End Date Status traZODone HCl 50mg A ctive Aleve prn Active Atenolol 25mg Active Suprep Bowel Prep 1 as directed Orally a s directed; Duration: 1 dose 02/25/2014 Activ e Triamcinolone & Emollient prn Active Problems Problem Type SNOMED Code ICD Code Onset Dates Problem Status W/U Status Risk Notes Problem Pre-surgery evaluation (079584165) Other specified pre-operative examination (V72.83) Active confirmed Problem Colon cancer screening (596423692) Colon cancer screening (V76.51) Active confirmed Encounters Encounter Location Date Provider Diagnosis [facility] [address] [place] [phone] 12/24/2024 Jeff Navarro Plan Of Treatment Future Test Test Name Order Date COLONOSCOPY 02/25/2014 Insurance Providers Payer Name Payer Address Payer Phone Subscriber Number Group Number Insured Name Patient Relationship to Insured Coverage Start Date Coverage End Date [facility] [address] [place] [id number] Self - patient is the insured Medical (General) History Medical History History ICD Code HTN Denies [place],DM,CVA,Lung disease,renal dise ase insomnia Surgical History Surgery Date(Month/Year) Lower back surgery X 2
== END 2025-09-02 11:40 | disposition home or self-care (01) ==
LOC: HO.HGI 10:55
PROVIDERS: PCP Physician Assistant; Visit Provider Internal Medicine Gastroenterology
DX: K21.9 Gastro-esophageal reflux disease without esophagitis (principal); R14.0 Abdominal distension (gaseous)

== ENCOUNTER 2025-09-10 13:50 | Outpatient (AMB) | payer OTHER, SELFPAY ==
--- OUTSIDE RECORDS SUMMARY | 2024-12-24 05:10 | XMS_ITS ---
Author Organization [facility] Address [address] [place] [address] Care Team Providers Care Tool Room Supervisor Name Role Phone Lucas Andino Primary Care Provider Unavailab Jeff Jama Unavailable [phone] Endy Wilson Unavailable Unavailable REASON FOR VISIT Patient presents today for a colon screening Encounters Encounter Location Date Provider Diagnosis [facility] [address] [facility] [address] [place] [address] 12/24/2024 Jeff Navarro Plan Of Treatment No Information Progress Notes * BASILIA LOPEZDOB: [birth year] (65 yo M)Acc No.[id number]:12/24/2024 Progress Notes Patient: BASILIA BANUELOS Provider: Ruth Navarro MD :1960 A ge:64 Y S ex:Male Date:12/24/2024 Address:[address] [place], [place] [phone] Pcp:Lucas Andino Subjective: * Chief Complaints: * [...] 0 12/24/2024 Generated for Laurai ng/Faxing/eTransmitting on: 1 05:42 PM EDT
--- NOTE | 2025-09-10 13:54 | A.OFFVIS_ITS ---
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 Patient has seen Rod-Agnes Rousseau in past for this same concern in 2020. Hx of right middle finger and left index finger injection on 07/01/2021. Patient reports he would like an injection in the index finger. In the morning he has to forcefully pull his finger up due to it catching and locking. Says injections helped him in past and index finger of left hand is the only one triggering again. 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 Patient has seen Rod-Agnes Rousseau in past for this same concern in 2020. Hx of right middle finger and left index finger injection on 07/01/2021. Patient reports he would like an injection in the index finger. In the morning he has to forcefully pull his finger up due to it catching and locking. Says injections helped him in past and index finger of left hand is the only one triggering again. [facility] Medical History (Updated 09/24/25 @ 07:41 by KALPANA Bai) Trigger finger, left index finger Insomnia Nocturnal hypoxemia RLS (restless legs syndrome) Eczema Surgical History History of colonoscopy (~2013) History of lumbar surgery Family History Father Diabetes Mother Gastric cancer Brother Prostate cancer Family/Other FH: mental illness Sister Cancer Social History Housing: House Are you a primary transition of care specialist to a significant other at home: No Do you presently have visiting nurse or other home services: No Alcohol intake: current Alcohol intake frequency: a few times a month Alcohol type: beer Patient Tobacco Use Status: Former Tobacco user Tobacco use type: Cigarette e-Cigarette/Vaping Use: Never Used Second Hand Smoke Exposure: Yes service: No Current occupational status: employed Current occupational exposures/hazards: No Cognitive needs: No Hearing needs: No Vision needs: Yes Review of Systems Const All systems reviewed & are unremarkable except as noted in HPI and below Physical Exam Vital Signs: BMI result Body Mass Index 30.4 Extrem Other: Patient is alert, oriented, and in no acute distress. Neuro: Normal sensation of the tips of all digits of the left hand at this time Vascular: Cap refill brisk Pain: Tenderness to palpation of left index finger A1 alfred Pain with locking and catching of the left index finger ROM: Patient is able to make a closed fist and extend all digits of the left hand fully, with visible and palpable locking and catching of the left index finger Skin: No lacerations or abrasions. General: No ecchymosis, erythema, or evidence of infection. Psych: Appears grossly normal Affect normal Attitude cooperative Office Procedures AMB Tendon Injection Tendon Injection [id number] Tendon Sheath Injection All charges added?: Procedure code (CPT) selection complete Assessment & Plan Assessment & Plan (1) Trigger finger, left index finger: Code(s): M65.322 - Trigger finger, left index finger Category: Medical Plan 1. Left index finger trigger finger The risks and benefits of a steroid injection including but not limited to risk of damage to blood vessels, nerves, tendons, infection, skin bleaching, failure to improve symptoms, increased pain, and possible need for further injections or other intervention were discussed with the patient and the patient wishes to proceed with the steroid injection. Once consent was obtained, I sterilely prepped the area over the A1 alfred of the flexor tendon sheath of the left index finger. I then injected the flexor tendon sheath with a combination of 1 mL of dexamethasone (4mg/ml), and 1% lidocaine. The patient tolerated the procedure well with no complications. If the patient continues to have locking and catching 4-6 weeks following this injection, they may call to schedule appointment to discuss alternative treatment options Follow-up prn Coding Level of Care Code New Pt Level 3 (33367) Diagnoses Trigger finger, left index finger M65.322 CPT Codes Tendon Injection - Tendon Injection 1: [id number] Tendon Sheath Injection ([id number])
[2025-09-10 14:13] VITALS: BMI 30.4
--- OUTSIDE RECORDS SUMMARY | 2025-09-10 17:42 | XMS_ITS | Patient Health Record ---
Author Organization [facility] Address [address] [place] [id number] Care Team Providers Care Sales And Marketing Professional Name Role Phone Lucas Andino Primary Care Provider Unavailab Jeff Jama Unavailable [phone] Endy Wislon Unavailable Unavailable Reason For Referral No Information [...] W/U Status Risk Notes Problem Pre-surgery evaluation (352618793) Other specified pre-operative examination (V72.83) Active confirmed Problem Colon cancer screening (467166053) Colon cancer screening (V76.51) Active confirmed Encounters Encounter Location Date Provider Diagnosis [facility] [address] [place] [id number] 12/24/2024 Jeff Navarro Plan Of Treatment Future Test Test Name Order Date COLONOSCOPY 02/25/2014 Insurance Providers Payer Name Payer Address Payer Phone Subscriber Number Group Number Insured Name Patient Relationship to Insured Coverage Start Date Coverage End Date [facility] [address] [place] [id number] Self - patient is the insured Medical (General) History Medical History History ICD Code HTN Denies PA,DM,CVA,Lung disease,renal dise ase insomnia Surgical History Surgery Date(Month/Year) Lower back surgery X 2
== END 2025-09-10 14:47 | disposition home or self-care (01) ==
LOC: HO.HOS 13:51
PROVIDERS: PCP Physician Assistant
DX: M65.322 Trigger finger, left index finger (principal)
CPT/HCPCS: 20550; 99203

== ENCOUNTER → 2025-09-10 13:50 | Outpatient (BNVA) | payer OTHER, SELFPAY | PROVIDERS: PCP Physician Assistant | DX: M65.322 Trigger finger, left index finger (principal) | CPT/HCPCS: 20550; J1100; J2003 ==

== ENCOUNTER 2025-11-11 09:40 | Outpatient (AMB) | payer OTHER, SELFPAY ==
--- OUTSIDE RECORDS SUMMARY | 2024-12-24 04:10 | XMS_ITS ---
Author Organization [facility] Address [address] [place] [address] Care Team Providers Care Medical Receptionist Biller Name Role Phone Lucas Andino Primary Care Provider Unavailab Jeff Jama Unavailable [phone] Endy Wilson Unavailable Unavailable REASON FOR VISIT Patient presents today for a colon screening Encounters Encounter Location Date Provider Diagnosis [facility] [address] [facility] [address] [place] [address] 12/24/2024 Jeff Navarro Plan Of Treatment No Information Progress Notes * BASILIA LOPEZDOB: [birth year] (65 yo M)Acc No.[id number]:12/24/2024 Progress Notes Patient: BASILIA BANUELOS Provider: Ruth Navarro MD :1960 A ge:64 Y S ex:Male Date:12/24/2024 Address:[address] [place], [place] [id number] Pcp:Lucas Andino Subjective: * Chief Complaints: * P atient presents today for a colon screening Billing Information: * Procedure Codes: * The named appointment provid er may or may not be the originator of this progress note, and it is not deemed complete until electronically signed by the appointment provider. Sign off status: Pending * Provider: Ruth Navarro MD Date: 0 12/24/2024 Generated for Printi ng/Faxing/eTransmitting on: 1 12:28 PM EST
[2025-11-11 09:44] VITALS: BP 124/68; PULSE 59; RESP 18; O2SAT 94; BMI 31.5
--- NOTE | 2025-11-11 09:44 | A.OFFPC_ITS ---
Vital Signs 11/11/25 09:44 Height 5 ft 10 in Weight 219 lb 8 oz BMI 31.5 BP 124/68 Blood Pressure Location Lt brachial Position Sitting Respiration 18 Pulse 59 Pulse Source Pulse Oximeter Temp Source Temporal Artery Scan Pulse Oximetry (%) 94 Oxygen Delivery Method Room Air Intake Visit Reasons: discuss FMLA paperwork Biology Specialist Required: No Accompanied by: Self / Same As Patient Allergies trazodone Adverse Reaction (Intermediate, Verified 11/11/25 10:06) excessive sleep Medication List - Last Reconciled 11/11/25 by Lucas Andino PA-C atorvastatin (Lipitor) 10 mg PO DAILY 90 days cholecalciferol (vitamin D3) 125 mcg PO DAILY lisinopril-hydrochlorothiazide 10-12.5 mg 1 tab PO DAILY 90 days loperamide 2 mg PO Q8H 15 days metoprolol succinate ER 100 mg PO DAILY mometasone 0.1% 1 appl topical DAILY 4 weeks pantoprazole 40 mg PO DAILY tamsulosin 0.4 mg PO BEDTIME zolpidem 10 mg PO 3XW PRN 4 weeks Tobacco use date assessed: 11/11/25 Dental Screening Dental Screen Date: 11/11/25 Did you have a dental visit in the last 12 months?: No Did you have a dental problem in the last 6 months where you did not have access to dental care?: No Was dental information given to patient?: No HPI discuss FMLA paperwork HPI Details Patient is a 65-year-old male here today for a follow up visit, would like to discuss FMLA Patient's past medical history significant for obstructive sleep apnea, insomnia, borderline high cholesterol and hypertension. 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 Refilled out FMLA paperwork today [facility] Medical History Trigger finger, left index finger Insomnia Nocturnal hypoxemia RLS (restless legs syndrome) Eczema Surgical History History of colonoscopy (~2013) History of lumbar surgery Family History Father Diabetes Mother Gastric cancer Brother Prostate cancer Family/Other FH: mental illness Sister Cancer Social History Housing: House Are you a primary health care legal assistant to a significant other at home: No Do you presently have visiting nurse or other home services: No Alcohol intake: current Alcohol intake frequency: a few times a month Alcohol type: beer Patient Tobacco Use Status: Former Tobacco user Tobacco use type: Cigarette e-Cigarette/Vaping Use: Never Used Second Hand Smoke Exposure: Yes service: No Current occupational status: employed Current occupational exposures/hazards: No Cognitive needs: No Hearing needs: No Vision needs: Yes Questionnaire Thrive Questionnaire Date Thrive assessed: 11/11/25 What is your living situation today?: I choose not to answer this question Within the past 12 months, did the food you bought not last and you didn't have the money to get more?: I choose not to answer this question Within the past 12 months, did you worry whether your food would run out before you got money to buy more?: I choose not to answer this question Do you have trouble paying for medicines?: I choose not to answer this question Do you have trouble getting transportation to medical appointments?: I choose not to answer this question Do you have trouble paying your heating and electricity bill?: I choose not to answer this question Do you have trouble taking care of your child, family member or friend?: I choose not to answer this question Do you have trouble with day-to-day activities such as bathing, preparing meals, shopping, managing finances, etc.?: I choose not to answer this question Are you currently unemployed and looking for a job?: I choose not to answer this question Are you interested in more education?: I choose not to answer this question Currently or been in a relationship where the following occur: I choose not to answer THRIVE Score: 0 RISHI-7 AMB Questionnaire RISHI-7 Date RISHI - 7 assessed: 04/28/25 Source: Developed by Drs. Jeff Casillas, Tamela Jansen, Wayne Kate and colleagues, with an educational zain from [employer]. Review of Systems Const Denies headache(s) Eyes Denies loss of vision ENT Denies vertigo, Denies dizziness, Denies headache(s) and Denies sore throat Card Denies chest pain, Denies leg edema and Denies lightheadedness Resp Denies cough, Denies hemoptysis and Denies wheezing GI Denies abdominal pain, Denies melena, Denies constipation, Denies diarrhea and Denies vomiting Denies dysuria, Denies urinary frequency and Denies urinary urgency Musc Denies arthralgias, Denies joint swelling, Denies numbness and Denies tingling Neuro Denies Abnormal speech present, Denies behavioral changes, Denies vertigo, Denies dizziness, Denies headache(s), Denies loss of vision, Denies memory loss, Denies numbness and Denies tingling Psych Denies anxiety, Denies behavioral changes, Denies depression, Denies memory loss and Denies panic attacks Kodak/Lymph Denies easy bleeding and Denies easy bruising Aller/Immun Denies wheezing Physical exam (Primary Care) Vital Signs: Last Vital Signs Pulse 59 11/11/25 09:44 Resp 18 11/11/25 09:44 BP 124/68 11/11/25 09:44 Pulse Ox 94 11/11/25 09:44 Oxygen Delivery Method Room Air 11/11/25 09:44 BMI result Body Mass Index 31.5 Tobacco/Smoking Status: Tobacco use Status Tobacco use date assessed 11/11/25 11/11/25 09:51 Patient Tobacco Use Status Former Tobacco user 11/11/25 09:51 Tobacco use type Cigarette 11/11/25 09:51 e-Cigarette/Vaping Use Never Used 11/11/25 09:51 Thrive Assessment: Date of Thrive Assessment Date Thrive assessed 11/11/25 11/11/25 09:51 Currently or been in a relationship where the following occur: I choose not to answer Const General: healthy appearing, no acute distress, alert and awake Nutritional Appearance: well nourished Orientation/consciousness: oriented to person, oriented to place and oriented to time HENMT Ears: TM's normal bilaterally General nose exam: Normal nasal mucous membranes and turbinates present Eyes Conjunctivae: conjunctivae normal Sclerae: sclerae normal Pupils: Equal, round and reactive pupils present Neck Neck: Yes no lymphadenopathy and Yes no JVD Thyroid: Thyroid normal Carotids: no bruits Resp Effort & Inspection: normal respiratory effort and not tachypneic Auscultation: no crackles, no rales, no rhonchi and no wheezes Cardio Rate: regular rate Rhythm: regular rhythm Heart sounds: no murmurs and normal S1 and S2 GI Palpation (GI): Soft to palpation, nontender, no hepatomegaly and no splenomegaly Auscultation: normal bowel sounds Skin General skin exam: no rashes or lesions noted and dry skin Neuro General: oriented to person, oriented to place and oriented to time Cranial nerves: Yes Equal, round and reactive pupils present Speech: No Abnormal speech present Gait exam (Neuro): Normal gait present Motor exam (neuro): no tremor noted Extrem Right upper extremity: full ROM Left upper extremity: full ROM Right lower extremity: full ROM; no edema Left lower extremity: full ROM; no edema Psych Mental Status: mental status grossly normal Speech and movement: Normal speech and movement present Affect: normal affect Attitude: cooperative Thought process: Normal thought process present Coding Level of Care Code Est Pt Level 3 (19202) Diagnoses Polyarthralgia M25.50 Primary insomnia F51.01 Insomnia type: primary Essential hypertension I10 Hypertension type: essential hypertension Assessment & Plan Assessment & Plan (1) Polyarthralgia: Code(s): M25.50 - Pain in unspecified joint Category: Medical Plan: The [facility] paperwork for the patient's shoulder arthritis, sleep disorder, and chronic diarrhea will be completed for intermittent leave, approximately three times per month. The completed form will be faxed to his employer. (2) Insomnia: Comment: HE HAS LONGSTANDING HISTORY OF DIFFICULTY IN FALLING AND MAINTAINING SLEEP. Trazodone is helping. Advised to continue using 100 mg before bedtime, every night. Code(s): G47.00 - Insomnia, unspecified Category: Medical Qualifiers: Insomnia type: primary Qualified Code(s): F51.01 - Primary insomnia Plan: The patient experiences insomnia and uses Ambien sparingly. He is considering increasing the frequency of Ambien use to three times a week to improve sleep quality. A prescription adjustment has been made to accommodate this change. (3) HTN (hypertension): Code(s): I10 - Essential (primary) hypertension Category: Medical Qualifiers: Hypertension type: essential hypertension Qualified Code(s): I10 - Essential (primary) hypertension Plan: Patient's blood pressure acceptable today in office. Will continue him on his current dose of antihypertensive medication with goal blood pressure to remain below 140/90 Medications: Refilled zolpidem 10 mg PO 3XW PRN 12 tabs 3RF sleep 4 weeks G47.00 - Insomnia, unspecified
--- OUTSIDE RECORDS SUMMARY | 2025-11-11 12:29 | XMS_ITS | Patient Health Record ---
Author Organization [facility] Address [address] [place] [address] Care Team Providers Care Machine Clothing Replacer Name Role Phone Lucas Andino Primary Care Provider Unavailab Jeff Jama Unavailable [phone] Endy Wilson Unavailable Unavailable Reason For Referral No Information Medications Medication SIG (Take, Route, Frequency, Duration) Notes Start Date End Date Status traZODone HCl 50mg A ctive Aleve prn Active Atenolol 25mg Active Suprep Bowel Prep 1 Solution as directed Orally as directed; Duration: 1 dose 02/25/2014 Active Triamcinolone & Emollient prn Active Social History Social History Additional Details Category Social Info Options Details Miscellaneous: Marital status: single 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 [employer] Section Notes: Smoker < 1 ppd; occasional a lcohol Problems Problem Type SNOMED Code ICD Code Onset Dates Problem Status W/U Status Risk Notes Problem Pre-surgery evaluation (594284198) Other specified pre-operative examination (V72.83) Active confirmed Problem Colon cancer screening (211201907) Colon cancer screening (V76.51) Active confirmed Encounters Encounter Location Date Provider Diagnosis [facility] [address] [place] [phone] 12/24/2024 Jeff Navarro Plan Of Treatment Future Test Test Name Order Date COLONOSCOPY 02/25/2014 Insurance Providers Payer Name Payer Address Payer Phone Subscriber Number Group Number Insured Name Patient Relationship to Insured Coverage Start Date Coverage End Date [facility] [address] [place] [id number] Self - patient is the insured Medical (General) History Medical History History ICD Code HTN Denies ME,DM,CVA,Lung disease,renal dise ase insomnia Surgical History Surgery Date(Month/Year) Lower back surgery X 2
== END 2025-11-11 10:25 | disposition home or self-care (01) ==
LOC: HO.HMCH 09:41
PROVIDERS: PCP Physician Assistant; Visit Provider Physician Assistant
DX: M25.50 Pain in unspecified joint (principal); F51.01 Primary insomnia; I10 Essential (primary) hypertension